=== PATIENT | male | born 1965 | race Caucasian/White ===

== ENCOUNTER 2016-12-31 11:57 | Inpatient (IN) ==
--- NOTE | 2016-12-31 12:10 | Emergency Department Note ---
Disposition Clinical Impression: Acute renal failure, Hypoglycemia, Obesity, History of diabetes mellitus, Calculus of kidney, History of hypertension, Anemia, Abnormal urinalysis, Hyperphosphatemia, Hyperkalemia, Hypermagnesemia, Dyspnea Disposition: Admitted As Inpatient Referrals: Shakira Diaz CNP [Primary Care Provider] - Forms: ED Satisfaction Letter General Adult HPI - General Chief complaint: ED Recheck/Abnormal Lab/Rx Stated complaint: Bilat kidney stone Time Seen by Provider: 12/31/16 12:07 Source: patient Limitations: no limitations - History of Present Illness HPI Narrative: 51-year-old male diabetic reports emergency department complaining of weakness and malaise and nausea. 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 The patient has a history of renal insufficiency. The patient is type II diabetic. He denies any chest pain. He states he had a recent stress test and echocardiogram which were negative. He has had some slight dyspnea. No cough leg swelling or pain or coughing up blood. The patient has no history of CAD CHF PE or DVT. The patient has a history of kidney stones. Recent CT scan demonstrating nonobstructive stones. He has had no flank or back pain. No bloody urine. There is been no abdominal pain. No confusion neck stiffness rash or fever. No convulsions no trouble walking talking hearing seeing or speaking and lateral arm weakness or numbness. No bowel or bladder dysfunction. The patient is concerned about renal dysfunction. He is also concerned about his blood sugar. He has been voiding normally. No discolored urine or bloody urine. Pain Scale: 0 - Related Data Home Medications Medication Instructions Recorded Confirmed BuPROPion SR (12 HR) [Wellbutrin 150 mg PO BID 01/08/16 01/08/16 SR] Insulin DETEMIR [Levemir Flextouch] 40 units SQ BID 01/08/16 01/08/16 Insulin LISPRO [Humalog] 10 units SQ DAILY PRN 01/08/16 01/08/16 Metformin HCl [Glucophage] 1,000 mg PO BID 01/08/16 01/08/16 Teriflunomide [Aubagio] 14 mg PO DAILY 01/08/16 01/08/16 Previous Rx's Medication Instructions Recorded Gabapentin [Neurontin] 300 mg PO TID #30 capsule 01/08/16 Allergies Allergy/AdvReac Type Severity Reaction Status Date / Time No Known Allergies Allergy Verified 01/08/16 12:32 All systems ED: reviewed and negative except as stated. Past Medical History - Past Medical History Medical history: Reports: diabetes, hypertension, kidney stones, renal disease - Social History Smoking Status: Never smoker Smokeless Tobacco Status: No Alcohol use: Reports: none Drug use: Reports: none Physical Exam - General Limitations: no limitations General appearance: alert, in no apparent distress - Head Head exam: atraumatic, normocephalic, normal inspection - Eye Eye exam: Present: normal appearance, PERRL, EOMI. Absent: scleral icterus, conjunctival injection, miosis, mydriasis, periorbital swelling - ENT ENT exam: normal exam, normal oropharynx, mucous membranes moist, TM's normal bilaterally, normal external ear exam - Neck Neck exam: Present: normal inspection, full ROM, trachea midline. Absent: tenderness - Chest Chest inspection: Present: symmetric chest wall rise. Absent: tenderness - Respiratory Respiratory exam: Present: normal lung sounds bilaterally. Absent: respiratory distress, wheezes, stridor, accessory muscle use, prolonged expiratory phase - Cardiovascular Cardiovascular exam: Present: regular rate, normal rhythm, normal heart sounds - Abdominal Exam Abdominal exam: Present: soft, Non-Tender, normal bowel sounds. Absent: tenderness, distention, guarding, rebound, rigidity, pulsatile mass - Extremities Exam Extremities exam: Present: normal inspection, full ROM, normal capillary refill. Absent: tenderness, pedal edema, joint swelling, calf tenderness - Expanded Lower Extremity Exam Lower leg exam: Absent: Homans' sign Neurovascular/Tendon exam: Present: normal capillary refill. Absent: motor deficit, sensory deficit, tendon deficit, extremity cold to touch, pallor - Back Exam Back exam: Present: normal inspection, full ROM. Absent: tenderness, CVA tenderness (R), CVA tenderness (L), vertebral tenderness - Neurological Exam Neurological exam: Present: alert, oriented X3, CN II-XII intact. Absent: motor sensory deficit - Psychiatric Psychiatric exam: Present: normal affect, normal mood - Skin Skin exam: Present: warm, dry, intact, normal color. Absent: rash, cyanosis, diaphoresis, erythema, pallor, mottled Course Vital Signs Temperature 97.5 F L 12/31/16 12:00 Pulse Rate 89 12/31/16 12:00 Respiratory Rate 18 12/31/16 12:00 Blood Pressure 140/90 12/31/16 12:00 O2 Sat by Pulse Oximetry 99 12/31/16 12:00 Temperature 97.5 F L 12/31/16 12:00 Pulse Rate 86 12/31/16 12:42 Respiratory Rate 18 12/31/16 12:42 Blood Pressure 143/88 12/31/16 12:42 O2 Sat by Pulse Oximetry 100 12/31/16 12:42 Oxygen Delivery Oxygen Delivery Room Air Medical Decision Making - MDM Narrative Medical decision making narrative: The patient appears to be in acute renal failure, he is significantly hypoglycemic, he has multiple electrolyte abnormalities and is concerned with dyspnea. IV fluid was given as well as dextrose in the ED. Based on the patient's significant laboratory abnormalities, I think it would be appropriate to admit the patient to the hospital. I discussed the case with the hospitalist on-call who has accepted the patient to their care. Glucose is pending recheck. D5 and one half normal saline at 100 mL an hour recommended by the hospitalist. - Lab Data Lab results reviewed: Yes I reviewed the patient's lab results. Result diagrams: 12/31/16 12:45 12/31/16 12:45 Lab Results 12/31/16 12/31/16 12/31/16 Range/Units 12:11 12:45 12:45 WBC 6.1 (4.3-11.1) K/mcL RBC 2.73 L (4.19-5.50) M/mcL Hgb 8.5 L (12.9-16.9) g/dL Hct 25.5 L (37.5-50.1) % MCV 93.4 (83.0-100.0) fL MCH 31.1 (28.0-33.3) pg MCHC 33.3 (31.6-35.5) g/dL RDW 12.3 (11.5-14.5) % Plt Count 197 (140-400) K/mcL MPV 10.1 (9.4-12.4) fL Immature Gran % 0.7 (0-4) % Seg Neutrophils % 63.1 % Lymphocytes % 25.7 % Monocytes % 9.0 % Eosinophils % 1.3 % Basophils % 0.2 % Neutrophils # 3.9 (1.6-8.9) K/mcL Lymphocytes # 1.6 (0.6-4.6) K/mcL Monocytes # 0.6 (0.0-1.3) K/mcL Eosinophils # 0.1 (0.0-0.6) K/mcL Basophils # 0.0 (0.0-0.2) K/mcL Sodium 138 (136-145) mEq/L Potassium 5.5 H (3.5-4.5) mEq/L Chloride 109 (98-109) mEq/L Carbon Dioxide 10 L* (19-29) mEq/L BUN 114 H (8-26) mg/dL Creatinine 13.53 H (0.72-1.25) mg/dL Est GFR ( Amer) 5 L (> 60) Est GFR (Non-Af Amer) 4 L (> 60) BUN/Creatinine Ratio 8 (6-26) Glucose 41 L (70-99) mg/dL Calculated Osmolality 319 H (280-300) Lactic Acid (0.5-2.2) mmol/L Calcium 9.4 (8.6-10.8) mg/dL Phosphorus 11.8 H (2.3-4.7) mg/dL Magnesium 2.7 H (1.6-2.6) mg/dL Total Bilirubin 0.4 (0.2-1.2) mg/dL Direct Bilirubin 0.2 (0.0-0.5) mg/dL Indirect Bilirubin 0.2 (0.0-1.2) mg/dL AST 11 (5-34) Units/L ALT 29 (0-55) Units/L Alkaline Phosphatase 100 (38-126) Units/L Troponin I (0-0.03) ng/mL C-Reactive Protein 6 H (Less than 5) mg/L Serum Total Protein 7.3 (6.0-8.3) g/dL Albumin 3.5 (3.5-5.0) g/dL Globulin 3.8 H (2.4-3.5) g/dL Albumin/Globulin Ratio 0.9 L (1.1-2.2) Beta-Hydroxybutyric Acd (0.02-0.27) mmol/L Urine Color Yellow (Yellow) Urine Clarity Cloudy A (Clear) Urine pH 5.5 (5.0-8.0) pH Units Ur Specific [place] 1.015 (1.010-1.025) Urine Protein 30 H (Neg-Trace) mg/dL Urine Glucose (UA) Normal (Normal) mg/dL Urine Ketones Negative (Negative) mg/dL Urine Blood Negative (Negative) Urine Nitrite Negative (Negative) Urine Bilirubin Negative (Negative) Urine Urobilinogen Normal (Normal) mg/dL Ur Leukocyte Esterase Small H (Negative) Urine Microscopic RBC 0-3 (0-3) per hpf Urine Microscopic WBC 5-15 H (0-3) per hpf Ur Squamous Epith Cells Moderate H (None-Few) per lpf Urine Bacteria None Seen (None-Few) per hpf Hyaline Casts None Seen (None-Few) per lpf Urine Yeast Few H (None Seen) per hpf Ur Culture Indicated? YES A (NO) 12/31/16 12/31/16 12/31/16 Range/Units 12:45 12:45 13:45 WBC (4.3-11.1) K/mcL RBC (4.19-5.50) M/mcL Hgb (12.9-16.9) g/dL Hct (37.5-50.1) % MCV (83.0-100.0) fL MCH (28.0-33.3) pg MCHC (31.6-35.5) g/dL RDW (11.5-14.5) % Plt Count (140-400) K/mcL MPV (9.4-12.4) fL Immature Gran % (0-4) % Seg Neutrophils % % Lymphocytes % % Monocytes % % Eosinophils % % Basophils % % Neutrophils # (1.6-8.9) K/mcL Lymphocytes # (0.6-4.6) K/mcL Monocytes # (0.0-1.3) K/mcL Eosinophils # (0.0-0.6) K/mcL Basophils # (0.0-0.2) K/mcL Sodium (136-145) mEq/L Potassium (3.5-4.5) mEq/L Chloride (98-109) mEq/L Carbon Dioxide (19-29) mEq/L BUN (8-26) mg/dL Creatinine (0.72-1.25) mg/dL Est GFR ( Amer) (> 60) Est GFR (Non-Af Amer) (> 60) BUN/Creatinine Ratio (6-26) Glucose (70-99) mg/dL Calculated Osmolality (280-300) Lactic Acid < 0.2 L (0.5-2.2) mmol/L Calcium (8.6-10.8) mg/dL Phosphorus (2.3-4.7) mg/dL Magnesium (1.6-2.6) mg/dL Total Bilirubin (0.2-1.2) mg/dL Direct Bilirubin (0.0-0.5) mg/dL Indirect Bilirubin (0.0-1.2) mg/dL AST (5-34) Units/L ALT (0-55) Units/L Alkaline Phosphatase (38-126) Units/L Troponin I 0.00 (0-0.03) ng/mL C-Reactive Protein (Less than 5) mg/L Serum Total Protein (6.0-8.3) g/dL Albumin (3.5-5.0) g/dL Globulin (2.4-3.5) g/dL Albumin/Globulin Ratio (1.1-2.2) Beta-Hydroxybutyric Acd 1.12 H (0.02-0.27) mmol/L Urine Color (Yellow) Urine Clarity (Clear) Urine pH (5.0-8.0) pH Units Ur Specific [place] (1.010-1.025) Urine Protein (Neg-Trace) mg/dL Urine Glucose (UA) (Normal) mg/dL Urine Ketones (Negative) mg/dL Urine Blood (Negative) Urine Nitrite (Negative) Urine Bilirubin (Negative) Urine Urobilinogen (Normal) mg/dL Ur Leukocyte Esterase (Negative) Urine Microscopic RBC (0-3) per hpf Urine Microscopic WBC (0-3) per hpf Ur Squamous Epith Cells (None-Few) per lpf Urine Bacteria (None-Few) per hpf Hyaline Casts (None-Few) per lpf Urine Yeast (None Seen) per hpf Ur Culture Indicated? (NO) - Radiology Data Radiology results reviewed: Yes I reviewed the patient's radiology results.
[2016-12-31 12:56] LABS: Basophils % 0.2 %; Eosinophils # 0.1 K/mcL (0.0-0.6); Eosinophils % 1.3 %; Hematocrit 25.5 % (37.5-50.1); Hemoglobin 8.5 g/dL (12.9-16.9); Immature Granulocytes % 0.7 % (0-4); Lymphocytes # 1.6 K/mcL (0.6-4.6); Lymphocytes % 25.7 %; Mean Corpuscular HGB Conc 33.3 g/dL (31.6-35.5); Mean Corpuscular Hemoglobin 31.1 pg (28.0-33.3); Mean Corpuscular Volume 93.4 fL (83.0-100.0); Mean Platelet Volume 10.1 fL (9.4-12.4); Monocytes # 0.6 K/mcL (0.0-1.3); Neutrophils # 3.9 K/mcL (1.6-8.9); Platelet Count 197 K/mcL (140-400); Red Blood Count 2.73 M/mcL (4.19-5.50); Red Cell Distribution Width 12.3 % (11.5-14.5); Segmented Neutrophils % 63.1 %
[2016-12-31 13:02] LABS: Bilirubin,Urine Negative (Negative); Blood,Urine Negative (Negative); Clarity,Urine Cloudy (Clear); Color,Urine Yellow (Yellow); Glucose,Urine (UA) Normal (Normal); Ketones,Urine Negative (Negative); Leukocyte Esterase,Urine Small (Negative); Nitrite,Urine Negative (Negative); PH,Urine 5.5 pH Units (5.0-8.0); Protein,Urine 30 mg/dL (Neg-Trace); Specific Gravity,Urine 1.015 (1.010-1.025); Urobilinogen,Urine Normal (Normal)
[2016-12-31 13:05] LABS: Bacteria,Urine None Seen per hpf (None-Few); Hyaline Casts,Urine None Seen per lpf (None-Few); RBC,Urine 0-3 per hpf (0-3); Squamous Epithelial Cell,Urine Moderate per lpf (None-Few)
[2016-12-31 13:12] LABS: Yeast,Urine Few per hpf (None Seen)
[2016-12-31 13:20] LABS: Albumin 3.5 g/dL (3.5-5.0); Albumin/Globulin Ratio 0.9 (1.1-2.2); Bilirubin,Direct 0.2 mg/dL (0.0-0.5); Bilirubin,Indirect 0.2 mg/dL (0.0-1.2); Bilirubin,Total 0.4 mg/dL (0.2-1.2); Calcium 9.4 mg/dL (8.6-10.8); Globulin 3.8 g/dL (2.4-3.5); Magnesium 2.7 mg/dL (1.6-2.6); Phosphorous 11.8 mg/dL (2.3-4.7); Potassium 5.5 mEq/L (3.5-4.5); Total Protein 7.3 g/dL (6.0-8.3)
[2016-12-31] MEDS ORDERED: *HR* Dextrose 50 % in Water (Syg) 50 ML SYRINGE IVP ONE (13:52)
[2016-12-31] MEDS ORDERED: 0.9 % Sodium Chloride 1,000 ML IVC ONE (13:52)
[2016-12-31] MEDS ORDERED: *HR* Dextrose 50 % in Water (Syg) 50 ML SYRINGE ONE (13:55)
[2016-12-31 14:20] LABS: VBG HCO3 9.9 mEq/L (21-27)
[2016-12-31 14:21] LABS: VBG PH 7.1 pH Units (7.32-7.42)
[2016-12-31] MEDS ORDERED: D5% in 0.45% NACL 1,000 ML IVC SCH (14:30)
[2016-12-31] MEDS ORDERED: Ondansetron 4 MG/2 ML VIAL IVP PRN (14:33)
[2016-12-31] MEDS ORDERED: Acetaminophen 325 MG TABLET PO PRN (14:33)
[2016-12-31] MEDS ORDERED: Naloxone 0.4 MG/ML INJ IVP PRN (14:33)
[2016-12-31] MEDS ORDERED: *HR* HYDROcodone/Acet 5/325 mg TABLET PO PRN (14:33)
[2016-12-31] MEDS ORDERED: Dextrose Gel 15 GM PO PRN ×2 (14:33)
[2016-12-31] MEDS ORDERED: *HR* Dextrose 50 % in Water (Syg) 50 ML SYRINGE IVP PRN (14:33)
[2016-12-31] MEDS ORDERED: D5% in Water 1,000 ML IVC PRN ×2 (14:33→17:24)
[2016-12-31 14:52] LABS: Prothrombin Time 10.9 Seconds (9.4-12.1)
[2016-12-31 14:55] LABS: Activated Partial Thrombo Time 33.5 Seconds (26.0-36.0)
--- NOTE | 2016-12-31 16:11 | Nephrology Consult Note ---
Date of Encounter: 12/31/16 Time of Encounter: 16:00 Assessment and Plan (1) KEZIA (acute kidney injury) Current Visit: Yes Status: Acute Elevated SCr in the setting of kidney stones rule out obstructive uropathy and worsening anemia Will check CPK, uric acid and C3 and C4 levels Needs repeat imaging, will order CT abd/plevis Will check urine for sodium, creatinine, eosinophils Hold all nephrotoxins if possible No acute indication for REGISTRATION REP at this point but barrie made aware of the severity of his condition and the possible need for REGISTRATION REP if no improvement Will repeat BMP tonight (2) Anemia Current Visit: Yes Status: Acute Etiology unclear, needs workup Will check iron studies Stool guaiac Viatmin B12 and folate levels Qualifiers: Anemia type: other cause Qualified Code(s): D64.89 - Other specified anemias (3) Hyperkalemia Current Visit: Yes Status: Acute Elevated potassium due to KEZIA, should improve with bicarbonate repletion and improving renal function Renal diet advised (4) Nephrolithiasis Current Visit: Yes Status: Acute Repeat CT abd/pelvis planned (5) Metabolic acidosis Current Visit: Yes Status: Acute Agree with changing fluids to D5W with 150MEq bicarb at 100cc/hr History of Present Illness - Reason for Consult Consult date: 12/31/16 Acute Kidney Injury, Chronic Kidney Disease Requesting physician: Mabel Lugo - History of Present Illness 51 y o male with PMH of DM, HLD, HTN and morbid obesity s/p gastric bypass presenting to the Ed today with generalized weakness and malaise along with nausea and vomiting. SCr noted worsening at 13.53, GFR 4 with BUN at 114 previously 7.86/GFR7 a week ago and 3.13, GFR 21 as of and previous baseline noted around 1.1-1.2 with mild microalbuminuria. He follows with my associate, Dr Rosales for his renal issues and recently established with urology, Dr Laura for kidney stones. Recent CT abd/pelvis on 12/22/2016 showed bilaterla kidney stones but no hydronephrosis although a 3-4mm calcification was noted in the left pelvis possibly in ureter. No recent NSAIDs use but does take losartan for BP control and metformin for DM. no fevers/chills. No rash. No myalgias or arthralgias. No flank pain. No sustained N/V/D. No urinary sxs. No signs of bleeding although hgb noted decreasing from 13 last month to 10 last week and now 8.5, he reports a history of "mild anemia". Past Med Surg Social Fam HX - Past Medical History Medical history: diabetes, hypertension, kidney stones, renal disease - Social History Smoking Status: Never smoker Smokeless Tobacco Status: No Alcohol use: none Drug use: none - Family History Father Hx Family Genitourinary Disorders: Yes (kidney stones) Medications and Allergies Insulin LISPRO [Humalog] 10 units SQ DAILY PRN 01/08/16 [History] Metformin HCl [Glucophage] 1,000 mg PO BID 01/08/16 [History] RX: BuPROPion SR (12 HR) [Wellbutrin SR] 150 mg PO BID 01/08/16 [History] Dulaglutide [Trulicity] 1.5 mg SQ CANELA 12/31/16 [History] Insulin Glargine,Hum.rec.anlog [Toujeo Solostar] 10 - 30 units SQ DAILY [History] Lidocaine [Lidocaine] 1 patch TP DAILY PRN 12/31/16 [History] Losartan Potassium [Cozaar] 100 mg PO DAILY 12/31/16 [History] Pregabalin [Lyrica] 200 mg PO DAILY 12/31/16 [History] RX: DULoxetine [Cymbalta] 30 mg PO DAILY 12/31/16 [History] Rosuvastatin Calcium [Rosuvastatin Calcium] 40 mg PO DAILY 12/31/16 [History] Allergies No Known Allergies Allergy (Verified 12/31/16 14:43) Review of Systems All Systems: reviewed and no additional remarkable complaints except as stated ( ten systems reviewed) Exam - Vital Signs Vital signs: Initial Vital Signs Temp Pulse Resp BP Pulse Ox 97.5 F L 89 18 140/90 99 12/31/16 12:00 12/31/16 12:00 12/31/16 12:00 12/31/16 12:00 12/31/16 12:00 Vital Signs - Last 8 Hours Pulse Resp BP Pulse Ox 12/31/16 15:46 18 147/81 12/31/16 15:03 85 18 144/89 98 Intake and Output 12/31/16 12/31/16 12/31/16 07:59 15:59 23:59 Other: Blood Glucose* 164 - General Appearance General appearance: well-developed, well-nourished (NAD) EENT: ATNC, mucous membranes moist Results - Lab Results 12/31/16 12:45 12/31/16 14:30 Most recent lab results Calcium 9.4 mg/dL (8.6-10.8) 12/31/16 12:45 Phosphorus 11.8 mg/dL (2.3-4.7) H 12/31/16 12:45 Magnesium 2.7 mg/dL (1.6-2.6) H 12/31/16 12:45 Consult Discharge Plan - Plan Referrals: Shakira Diaz CNP [Primary Care Provider] -
--- NOTE | 2016-12-31 16:12 | Internal Med History&Physical ---
Date of Encounter: 12/31/16 Time of Encounter: 14:45 Assessment and Plan (1) Acute worsening of stage 3 chronic kidney disease Current visit: Yes Status: Acute Creatinine of 1.4 in Jun. Creatinine has been trending up, in December 08 Cr was 3.3 -> December 23 it was 7.86 for which he saw Dr Rosales and had work up as outpatient (negative MURALI, ANCA, SPEP, complement C3, C4, PTH, Vit D). High urine oxalate. He started feeling weak a few weeks ago and last week he developed nausea, vomiting and upper respiratory symptoms including rhinorrhea and productive cough. His He reports on and off diarrhea for years after gastric bypass surgery. No new medications. No abdominal pain. No change in urine output. No urinary complaints. No bleeding. No chest pain. No shortness of breath. No sick contacts. No recent travel. no skin lesions. no joint problems. and today it is 13.53 with BUN 114 and K 5.5. Worsening kidney function could be secondary to dehydration from N/V and suspected URI. normal temp. CO3 is 10. start IV fluids D5/sodium bicarb 3 amps at 100 ml/hr. EKG reviewed by me and shows SR HR 71. CXR was negative for acute process. Consult nephrology. Check urine lytes. check renal us. repeat BMP this evening. (2) Hyperkalemia Current visit: Yes Status: Acute plan as above (3) Hypoglycemia Current visit: Yes Status: Acute secondary to worsening kidney function. hold home dose lantus. continue IV dextrose. (4) Hyperphosphatemia Current visit: Yes Status: Acute phosphorus at 11. close monitor. (5) Nephrolithiasis Current visit: Yes Status: Acute history nephrolithiasis s/p lithotripsy in . Patient had recent CT abdomen in December 22 and it showed bilateral renal calculi, no hydronephrosis. check renal us (6) History of hypertension Current visit: Yes Status: Acute well controlled. hold home dose losartan. (7) History of diabetes mellitus Current visit: Yes Status: Chronic holding home dose lantus due to hypoglycemia. iss. diabetic diet. (8) Anemia Current visit: Yes Status: Acute likely secondary to chronic kidney disease. check iron ferritin, b12, folate. no bleeding. close monitor. Qualifiers: Anemia type: other cause Other causes of anemia: chronic disease, other Qualified Code(s): D63.8 - Anemia in other chronic diseases classified elsewhere (9) Obesity Current visit: Yes Status: Suspected bmi 36 Qualifiers: Obesity type: unspecified obesity type Obesity severity: non-morbid Qualified Code(s): E66.9 - Obesity, unspecified Internal Medicine - H&P: HPI Chief complaint: generalized weakness for the past 2 weeks. Admitted From: Home Plans for Post Hospital Care: Home History of present illness: Mr. Bruno is a 51 year old male diabetes mellitus, htn, CKD 3, and nephrolithiasis s/p lithotripsy in who started feeling weak a few weeks ago and last week he developed nausea, vomiting and upper respiratory symptoms including rhinorrhea and productive cough. His He reports on and off diarrhea for years after gastric bypass surgery. No new medications. No abdominal pain. No change in urine output. No urinary complaints. No bleeding. No chest pain. No shortness of breath. No sick contacts. No recent travel. no skin lesions. no joint problems. Past Med Surg Social Fam HX - Past Medical History Medical history: diabetes, hypertension, kidney stones, renal disease - Social History Smoking Status: Never smoker Smokeless Tobacco Status: No Alcohol use: none Drug use: none - Family History Father Hx Family Genitourinary Disorders: Yes (kidney stones) Internal Medicine - H&P: Meds BuPROPion SR (12 HR) [Wellbutrin SR] 150 mg PO BID 01/08/16 [History] Insulin LISPRO [Humalog] 10 units SQ DAILY PRN 01/08/16 [History] Metformin HCl [Glucophage] 1,000 mg PO BID 01/08/16 [History] DULoxetine [Cymbalta] 30 mg PO DAILY 12/31/16 [History] Dulaglutide [Trulicity] 1.5 mg SQ CANELA 12/31/16 [History] Insulin Glargine,Hum.rec.anlog [Marcos Hernándezostnarciso] 10 - 30 units SQ DAILY [History] Lidocaine [Lidocaine] 1 patch TP DAILY PRN 12/31/16 [History] Losartan Potassium [Cozaar] 100 mg PO DAILY 12/31/16 [History] Pregabalin [Lyrica] 200 mg PO DAILY 12/31/16 [History] Rosuvastatin Calcium [Rosuvastatin Calcium] 40 mg PO DAILY 12/31/16 [History] Allergies No Known Allergies Allergy (Verified 12/31/16 14:43) All Systems PM: A 10-system review of systems was performed and is negative for pertinent findings except as documented above in the HPI. - Constitutional Vitals: Temp Pulse Resp BP Pulse Ox 97.5 F L 85 18 147/81 98 12/31/16 12:00 12/31/16 15:03 12/31/16 15:46 12/31/16 15:46 12/31/16 15:03 General appearance: Present: cooperative, A&O X 3, pleasant, no acute distress, answers questions appropriately - Neck Neck exam general surgery: Present: supple, trachea midline. Absent: lymphadenopathy - Respiratory Respiratory exam: Present: CTAB - Cardiovascular Cardiovascular exam: Present: RRR - GI/Abdominal GI/Abdominal exam: Present: normal bowel sounds, soft. Absent: distended, tenderness - Extremities Exam Extremities exam: Absent: joint swelling, pedal edema - Back Exam Back exam: Absent: CVA tenderness (L), CVA tenderness (R) - Neurological Exam Neurological exam: Present: alert, oriented X3, no focal deficits, strengths equal and symetr throughout. Absent: facial droop, speech deficit - Skin Skin exam: Absent: rash Internal Med - H&P Results - Labs CBC & Chem 7: 12/31/16 12:45 12/31/16 14:30
[2016-12-31] MEDS: Pantoprazole 40 MG VIAL IVP SCH (17:08)
[2016-12-31] MEDS: Sodium Bicarbonate 150 MEQ in D5% in Water 1,000 ML IVC SCH (17:27)
[2016-12-31] MEDS ORDERED: Insulin LISPRO 300 UNITS/3 ML VIAL SQ SCH (21:00)
[2016-12-31 21:38] LABS: Potassium 6.1 mEq/L (3.5-4.5)
[2017-01-01 03:28] LABS: Basophils % 0.3 %; Eosinophils # 0.2 K/mcL (0.0-0.6); Eosinophils % 2.7 %; Hematocrit 25.1 % (37.5-50.1); Hemoglobin 8.5 g/dL (12.9-16.9); Immature Granulocytes % 0.5 % (0-4); Lymphocytes # 1.7 K/mcL (0.6-4.6); Lymphocytes % 28.4 %; Mean Corpuscular HGB Conc 33.9 g/dL (31.6-35.5); Mean Corpuscular Hemoglobin 31.3 pg (28.0-33.3); Mean Corpuscular Volume 92.3 fL (83.0-100.0); Mean Platelet Volume 10.7 fL (9.4-12.4); Monocytes # 0.7 K/mcL (0.0-1.3); Monocytes % 11.9 %; Neutrophils # 3.3 K/mcL (1.6-8.9); Platelet Count 173 K/mcL (140-400); Red Blood Count 2.72 M/mcL (4.19-5.50); Red Cell Distribution Width 11.9 % (11.5-14.5); Segmented Neutrophils % 56.2 %
[2017-01-01 03:42] LABS: % Iron Saturation 58 % (20-55); Iron 160 mcg/dL (65-175); Transferrin 198 mg/dL (174-364)
[2017-01-01 03:45] LABS: Calcium 8.3 mg/dL (8.6-10.8); Phosphorous 11.6 mg/dL (2.3-4.7); Potassium 4.7 mEq/L (3.5-4.5)
[2017-01-01 04:04] LABS: Ferritin 280 ng/ml (22-275)
[2017-01-01 04:21] LABS: Folate 13.5 ng/mL (7.0-31.4); Vitamin B12 > 2000 pg/mL (213-816)
[2017-01-01] MEDS: Sodium Bicarbonate 150 MEQ in D5% in Water 1,000 ML IVC SCH ×3 (05:15→21:38)
[2017-01-01] MEDS ORDERED: Insulin LISPRO 300 UNITS/3 ML VIAL SQ SCH (07:30)
[2017-01-01] MEDS: Pantoprazole 40 MG VIAL IVP SCH (08:44)
--- NOTE | 2017-01-01 10:40 | Internal Med Progress Note ---
Date of Encounter: 01/01/17 Time of Encounter: 08:15 - Assessment and plan (1) Acute worsening of stage 3 chronic kidney disease Current Visit: Yes Status: Acute Assessment and plan: No improvement in renal function. Nephrology input appreciated. Continue sodium bicarbonate infusion with dextrose. Potassium levels are improving. High risk for complications due to renal failure (2) Anemia Current Visit: Yes Status: Acute Assessment and plan: Likely from worsening of chronic kidney disease. Hemoglobin levels are stable. Patient does have normal iron, folic acid and B12 levels. Qualifiers: Anemia type: other cause Other causes of anemia: chronic disease, kidney Qualified Code(s): N18.9 - Chronic kidney disease, unspecified; D63.1 - Anemia in chronic kidney disease (3) Hyperkalemia Current Visit: Yes Status: Acute Assessment and plan: Potassium levels are improving. 4.7 today. (4) Hyperphosphatemia Current Visit: Yes Status: Acute Assessment and plan: Due to worsening kidney disease. (5) Hypoglycemia Current Visit: Yes Status: Acute Assessment and plan: Blood sugars were low this morning. Patient is receiving dextrose infusion with bicarbonate. Continue to monitor blood sugars closely hold insulin products (6) Nephrolithiasis Current Visit: Yes Status: Chronic Assessment and plan: Nonobstructive stones per CT scan of the abdomen. (7) Obesity Current Visit: Yes Status: Chronic Assessment and plan: Recommend weight loss Qualifiers: Obesity type: due to excess calories Obesity severity: non-morbid Qualified Code(s): E66.09 - Other obesity due to excess calories (8) Diabetes mellitus, type 2 Current Visit: Yes Status: Chronic Assessment and plan: Patient having hypoglycemic episodes. Hold insulin products. 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 On intravenous bicarbonate infusion. - Subjective Interval history: Doing well overall. Has good urine output. No hematuria. No dysuria. Nausea is improving. No shortness of breath or chest pain. No palpitations. - Constitutional Vitals: Temp Pulse Resp BP Pulse Ox 97.6 F 91 15 128/76 100 01/01/17 07:53 01/01/17 07:53 01/01/17 07:53 01/01/17 07:53 01/01/17 07:53 General appearance: Present: cooperative, A&O X 3, pleasant, no acute distress, answers questions appropriately - Neck Neck exam general surgery: Present: supple, trachea midline. Absent: lymphadenopathy - Respiratory Respiratory exam: Present: CTAB. Absent: accessory muscle use, rales, rhonchi, wheezes - Cardiovascular Cardiovascular exam: Present: RRR, +S1, +S2. Absent: diastolic murmur, gallop, rubs, systolic murmur - GI/Abdominal GI/Abdominal exam: Present: normal bowel sounds, soft, no peritoneal signs. Absent: distended, tenderness - Extremities Exam Extremities exam: Present: warm. Absent: calf tenderness, cyanotic, pedal edema - Neurological Exam Neurological exam: Present: alert, oriented X3, no focal deficits. Absent: facial droop, speech deficit - Skin Skin exam: Present: dry, intact Internal Medicine: Result - Labs CBC & Chem 7: 01/01/17 02:48 01/01/17 02:48 Labs: Short CBC 01/01/17 Range/Units 02:48 WBC 5.8 (4.3-11.1) K/mcL Hgb 8.5 L (12.9-16.9) g/dL Hct 25.1 L (37.5-50.1) % Plt Count 173 (140-400) K/mcL Neutrophils # 3.3 (1.6-8.9) K/mcL BMP 12/31/16 01/01/17 21:13 02:48 Sodium 130 L D 135 L Potassium 6.1 H 4.7 H D Chloride 105 107 Carbon Dioxide 7 L* 10 L* BUN 121 H 122 H Creatinine 12.53 H 13.20 H Glucose 210 H 70 Calcium 8.0 L 8.3 L - ABG Interpretation ABG results: PT/INR, D-dimer PT 10.9 Seconds (9.4-12.1) 12/31/16 12:45 - Impressions Impressions Retroperitoneum Ultrasound 12/31/16 21:30 IMPRESSION: 1. No evidence of acute obstructive uropathy. 2. Diffuse increased right renal parenchymal echogenicity in keeping with chronic medical renal disease. 3. Nonobstructing right renal calculus. 4. Nonspecific layering debris in the urinary bladder. Correlation with urinalysis is recommended. 5. Postvoid urinary bladder residual volume of 30 cc. 6. Prostatomegaly. D/ / Alejandro Oconnor MD / Alejandro Oconnor MD Interpreting Provider: Alejandro Oconnor MD Consult Discharge Plan - Plan Referrals: Shakira Diaz BUDGET ACCOUNTANT [Primary Care Provider] - (web Request 01/01/17) - Attending Attestation This document has been at least partially created by [employer] recognition technology by Dr. Vaz. Errors in grammar, wording or other phrases may exist. If errors are found after the documentation is signed, they will be addressed individually in the addendum section of this document when appropriate.
--- NOTE | 2017-01-01 11:22 | Nephrology Progress Note ---
Date of Encounter: 01/01/17 Time of Encounter: 11:15 - Assessment and Plan (1) KEZIA (acute kidney injury) Current Visit: Yes Status: Acute SCr remains about the same early this morning desspite fluids, will increase rate and repeat later today CT abd/pelvis both negative for obstruction with bilateral stones noted and trace perinephric fluid along with enlarged prostate CPK and Uric acid levels not impressive Urine sodium WNL, FEna calculated at 5.4%, FEurea calculated at 64.9% cosistent with intrinsic renal disease Will check MURALI, complements, ANCA, anti GBM levels Discussed the need for renal biopsy by tuesday if no improvement. Pt worried about staying here that long and considering leaving AMA but promising to come back Continue to avoid nephrotoxins if possible No acute indication for [employer] today but might need soon if no improvement (2) Anemia Current Visit: Yes Status: Acute Hgb low but stable. Iron studies WNL. will monitor Qualifiers: Anemia type: other cause Other causes of anemia: chronic disease, kidney Qualified Code(s): N18.9 - Chronic kidney disease, unspecified; D63.1 - Anemia in chronic kidney disease (3) Hyperkalemia Current Visit: Yes Status: Acute Improving at 4.7, will monitor on renal diet (4) Nephrolithiasis Current Visit: Yes Status: Chronic CT and US show no obstruction (5) Metabolic acidosis Current Visit: Yes Status: Acute Still there despite bicarb gtt due to KEZIA, will increase rate Subjective Interval history: Pt seen and examined with no complaints except wants to go home very soon as he has no relatives or friends in the area and is worried about his dog at home and 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 Objective - Vital Signs Vital signs: Vital Signs Temp Pulse Resp BP Pulse Ox 01/01/17 07:53 97.6 F 91 15 128/76 100 01/01/17 05:00 97.6 F 96 16 110/69 98 01/01/17 00:20 97.6 F 92 16 157/91 94 Intake and Output 12/31/16 01/01/17 01/01/17 23:59 07:59 15:59 Intake Total 0 / 0 1150 / 1150 530 / 530 Output Total 720 / 720 Balance 0 / -250 1150 / 1150 -190 / -190 Intake: IV Fluids 1150 / 1150 Sodium Bicarbonate 150 1150 / 1150 MEQ In Dextrose 5% 1,000 ML @ 100 mls/hr IVC . [id number] COUNT INCLUDES THE [facility] Rx#: [id number] Oral 0 / 0 530 / 530 Output: Urine 720 / 720 Other: Meal Breakfast Percent of Meal Consumed 100% Weight 127.913 kg Blood Glucose* 258 65 Patient Weight 01/01/17 23:59 Weight 127.913 kg - General Appearance General appearance: Present: well-developed, well-nourished (NAD) EENT: Present: ATNC, mucous membranes moist Neck: Present: no JVD, supple Respiratory: Present: clear Cardiology: Present: no edema, regular rate, regular rhythm, normal S1, normal S2 Gastrointestinal: Present: no tenderness, no guarding, obese Integumentary: Present: warm and dry Neurologic: Present: no focal deficit Musculoskeletal: Present: no deformities Psychiatric: Present: mood/affect appropriate, cooperative - Lab 01/01/17 02:48 01/01/17 02:48 Most recent lab results Calcium 8.3 mg/dL (8.6-10.8) L 01/01/17 02:48 Phosphorus 11.6 mg/dL (2.3-4.7) H 01/01/17 02:48 Magnesium 2.7 mg/dL (1.6-2.6) H 12/31/16 12:45 Urine Creatinine 71 mg/dL 12/31/16 17:19 Urine Sodium 39.0 mEq/L 12/31/16 17:19 Consult Discharge Plan - Plan Referrals: Shakira Diaz CNP [Primary Care Provider] - (web Request 01/01/17)
[2017-01-01] MEDS: Calcium Acetate 667 MG CAPSULE PO SCH ×2 (12:07→16:48)
[2017-01-01 17:10] LABS: Protein/Creatinine Ratio,Urine 0.32 mg/mg (0-0.20)
[2017-01-01 17:12] LABS: Calcium 8.1 mg/dL (8.6-10.8); Potassium 4.8 mEq/L (3.5-4.5)
[2017-01-01] MEDS ORDERED: Pregabalin 25 MG CAPSULE PO SCH (21:00)
[2017-01-02 04:54] LABS: Basophils % 0.3 %; Eosinophils # 0.1 K/mcL (0.0-0.6); Eosinophils % 1.7 %; Hematocrit 22.2 % (37.5-50.1); Hemoglobin 7.7 g/dL (12.9-16.9); Immature Granulocytes % 0.5 % (0-4); Lymphocytes # 1.4 K/mcL (0.6-4.6); Lymphocytes % 24.3 %; Mean Corpuscular HGB Conc 34.7 g/dL (31.6-35.5); Mean Corpuscular Hemoglobin 30.6 pg (28.0-33.3); Mean Corpuscular Volume 88.1 fL (83.0-100.0); Mean Platelet Volume 10.4 fL (9.4-12.4); Monocytes # 0.6 K/mcL (0.0-1.3); Monocytes % 10.3 %; Neutrophils # 3.7 K/mcL (1.6-8.9); Platelet Count 168 K/mcL (140-400); Red Blood Count 2.52 M/mcL (4.19-5.50); Red Cell Distribution Width 11.8 % (11.5-14.5); Segmented Neutrophils % 62.9 %
[2017-01-02 05:04] LABS: Calcium 8.1 mg/dL (8.6-10.8); Magnesium 1.9 mg/dL (1.6-2.6); Phosphorous 11.9 mg/dL (2.3-4.7)
[2017-01-02 05:05] LABS: Potassium 3.7 mEq/L (3.5-4.5)
[2017-01-02] MEDS: Sodium Bicarbonate 150 MEQ in D5% in Water 1,000 ML IVC SCH (05:26)
[2017-01-02] MEDS: Calcium Acetate 667 MG CAPSULE PO SCH ×2 (08:11→11:52)
[2017-01-02] MEDS: Pantoprazole 40 MG VIAL IVP SCH (08:12)
--- NOTE | 2017-01-02 09:36 | Electrocardiograph Report ---
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
[2017-01-02 11:20] VITALS: BP 144/92
--- NOTE | 2017-01-02 11:59 | Internal Med Progress Note ---
Date of Encounter: 01/02/17 Time of Encounter: 08:00 - Assessment and plan (1) Acute worsening of stage 3 chronic kidney disease Current Visit: Yes Status: Acute Assessment and plan: Renal function remains poor with elevated BUN and creatinine. Patient having 1.2 L urine output yesterday and 550 mL so far today. On IV bicarbonate and dextrose solution. Nephrology following. Patient will most likely need renal biopsy to further diagnose the cause for his acute worsening of renal function. He may also need to be started on dialysis soon if his renal function does not improve. High risk for complications. Hyperkalemia has improved (2) Anemia Current Visit: Yes Status: Acute Assessment and plan: Acute on chronic anemia. Could be related to acute renal failure. Patient has normal iron, folic acid and vitamin B12 levels. We will monitor blood counts for now. Consider colonoscopy as outpatient Qualifiers: Anemia type: other cause Other causes of anemia: chronic disease, kidney Qualified Code(s): N18.9 - Chronic kidney disease, unspecified; D63.1 - Anemia in chronic kidney disease (3) Hyperkalemia Current Visit: Yes Status: Resolved (4) Hyperphosphatemia Current Visit: Yes Status: Acute Assessment and plan: On PhosLo (5) Hypoglycemia Current Visit: Yes Status: Resolved Assessment and plan: This has resolved. (6) Nephrolithiasis Current Visit: Yes Status: Chronic Assessment and plan: Nonobstructing (7) Obesity Current Visit: Yes Status: Chronic Qualifiers: Obesity type: due to excess calories Obesity severity: non-morbid Qualified Code(s): E66.09 - Other obesity due to excess calories (8) Diabetes mellitus, type 2 Current Visit: Yes Status: Chronic Assessment and plan: Better controlled. Continue to monitor blood sugars and start low-dose sliding scale insulin blood sugars are persistently greater than 150. 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 - Subjective Interval history: Remains comfortable. Having decent urine output. No nausea or vomiting today. No shortness of breath. No chest pain. - Constitutional Vitals: Temp Pulse Resp BP Pulse Ox 98.2 F 93 14 144/92 96 01/02/17 11:15 01/02/17 11:15 01/02/17 11:15 01/02/17 11:15 01/02/17 11:15 General appearance: Present: cooperative, A&O X 3, pleasant, no acute distress, answers questions appropriately - Respiratory Respiratory exam: Present: CTAB. Absent: accessory muscle use, rales, rhonchi, wheezes - Cardiovascular Cardiovascular exam: Present: RRR, +S1, +S2. Absent: diastolic murmur, gallop, rubs, systolic murmur - GI/Abdominal GI/Abdominal exam: Present: normal bowel sounds, soft, no peritoneal signs. Absent: distended, tenderness - Extremities Exam Extremities exam: Present: pedal edema, warm, radial pulses palpable and symetrical. Absent: calf tenderness, cyanotic - Neurological Exam Neurological exam: Present: alert, oriented X3, no focal deficits. Absent: facial droop, speech deficit - Skin Skin exam: Present: dry, intact Internal Medicine: Result - Labs CBC & Chem 7: 01/02/17 04:27 01/02/17 04:27 Labs: Short CBC 01/02/17 Range/Units 04:27 WBC 5.9 (4.3-11.1) K/mcL Hgb 7.7 L (12.9-16.9) g/dL Hct 22.2 L (37.5-50.1) % Plt Count 168 (140-400) K/mcL Neutrophils # 3.7 (1.6-8.9) K/mcL [facility] 01/01/17 01/02/17 16:54 04:27 Sodium 135 L 136 Potassium 4.8 H 3.7 D Chloride 104 100 Carbon Dioxide 11 L 16 L BUN 122 H 121 H Creatinine 13.20 H 13.22 H Glucose 121 H 54 L Calcium 8.1 L 8.1 L - ABG Interpretation ABG results: PT/INR, D-dimer PT 10.9 Seconds (9.4-12.1) 12/31/16 12:45 Consult Discharge Plan - Plan Instructions: Calcium Acetate (By mouth), Sodium Bicarbonate (By mouth), Renal Failure Diet (DC) Referrals: Jaylan Rosales, [Partnered Physician] - (web request.office will call for an appointment) Shakira Diaz CNP [Primary Care Provider] - (web Request 01/01/17) Prescriptions: Calcium Acetate [Phos-LO] 1,334 mg PO TIDWM #180 capsule Sodium Bicarbonate 650 mg PO BID #60 tablet - Attending Attestation This document has been at least partially created by [employer] recognition technology by Dr. Vaz. Errors in grammar, wording or other phrases may exist. If errors are found after the documentation is signed, they will be addressed individually in the addendum section of this document when appropriate.
[2017-01-03 08:57] LABS: Complement Component 3 118 mg/dL (88-201); Complement Component 4 36 mg/dL (10-40)
[2017-01-05 10:37] LABS: ANA IgG by ELISA NONE DETECTED (None Detected)
[2017-01-06 11:26] LABS: GBM IgG Multiplex Bead Assay 0 AU/mL (0-19); Glomerular Basement Memb IgG NEGATIVE (Negative); Myeloperoxidase Ab 4 AU/mL (0-19); Serine Protease-3 Antibody 0 AU/mL (0-19)
== END 2017-01-02 12:35 | disposition left against medical advice (07) | DRG 683 ==
LOC: 2ANU 11:57 → EMEROO 11:57 → 2ANU 16:07
PROVIDERS: ADMIT Internal Medicine; ATTEND Internal Medicine

== ENCOUNTER 2017-01-04 12:22 | Inpatient (IN) ==
--- NOTE | 2017-01-04 12:53 | Emergency Department Note ---
Disposition Clinical Impression: KEZIA (acute kidney injury) Disposition: Admitted As Inpatient Condition: Fair Forms: Work/School Release, ED Satisfaction Letter Weakness HPI - General Chief complaint: ED Abdominal Pain Stated complaint: My Kidneys Source: patient Limitations: no limitations Nursing Notes Reviewed: Yes Vital Signs Reviewed: Yes - History of Present Illness HPI Narrative: Patient is a 51-year-old male who left AMA on Tuesday returns today for hospital admission. He has acute kidney injury they recommended a renal biopsy state that he had a go home and take care of some personal affairs and would return. He returns today only symptoms just weakness which is worsened by exertion. No other complaints he states he is willing and able now to stay as long as it takes to have definitive care for his kidney problems Pt Subjective Complaint: generalized weakness/fatigue Onset (ago): week(s) (2) Duration: constant Location: generalized Pain Scale: 2 Improves with: rest Worsens with: exertion Context: history of similar Associated symptoms: Denies: chest pain, confusion, dark stools, loss of appetite - Related Data Home Medications Medication Instructions Recorded Confirmed BuPROPion SR (12 HR) [Wellbutrin 150 mg PO BID 01/08/16 12/31/16 SR] Insulin LISPRO [Humalog] 10 units SQ DAILY PRN 01/08/16 12/31/16 DULoxetine [Cymbalta] 30 mg PO DAILY 12/31/16 12/31/16 Dulaglutide [Trulicity] 1.5 mg SQ CANELA 12/31/16 12/31/16 Insulin Glargine,Hum.rec.anlog 10 - 30 units SQ DAILY 12/31/16 12/31/16 [Marcos Paulino] Lidocaine 1 patch TP DAILY PRN 12/31/16 12/31/16 Pregabalin [Lyrica] 200 mg PO DAILY 12/31/16 12/31/16 Rosuvastatin Calcium 40 mg PO DAILY 12/31/16 12/31/16 Previous Rx's Medication Instructions Recorded Calcium Acetate [Phos-LO] 1,334 mg PO TIDWM #180 capsule 01/02/17 Sodium Bicarbonate 650 mg PO BID #60 tablet 01/02/17 Allergies Allergy/AdvReac Type Severity Reaction Status Date / Time No Known Allergies Allergy Verified 12/31/16 14:43 All systems ED: reviewed and negative except as stated. Constitutional: Reports: weakness. Denies: fever, chills Gastrointestinal: Denies: nausea, vomiting, hematemesis, melena, hematochezia Past Medical History - Past Medical History Source: patient, old records reviewed, nursing notes reviewed Medical history: Reports: diabetes, hypertension, kidney stones, renal disease Psychiatric history: Reports: no psych history - Social History Smoking Status: Never smoker Smokeless Tobacco Status: No Alcohol use: Reports: none Drug use: Reports: none Physical Exam - General Limitations: no limitations General appearance: alert - Head Head exam: atraumatic, normocephalic, normal inspection - Eye Eye exam: Present: normal appearance, PERRL, EOMI - Expanded Eye Exam Pupils: Left: reactive - ENT ENT exam: normal exam, normal oropharynx, mucous membranes moist - Expanded ENT Exam External ear exam: Present: normal external inspection Mouth exam: Present: normal external inspection Teeth exam: Present: normal inspection Throat exam: Present: normal inspection - Neck Neck exam: Present: normal inspection, full ROM, trachea midline - Chest Chest inspection: Present: normal inspection, symmetric chest wall rise - Respiratory Respiratory exam: Present: normal lung sounds bilaterally - Cardiovascular Cardiovascular exam: Present: regular rate, normal rhythm, normal heart sounds - Abdominal Exam Abdominal exam: Present: soft, Non-Tender. Absent: tenderness, distention, guarding, rebound, rigidity - Extremities Exam Extremities exam: Present: normal inspection, full ROM. Absent: tenderness, pedal edema - Expanded Upper Extremity Exam Shoulder exam: Present: normal inspection, full ROM Arm exam: Present: normal inspection, full ROM Elbow exam: Present: normal inspection, full ROM Forearm/Wrist exam: Present: normal inspection, full ROM Hand exam: Present: normal inspection, full ROM Vascular exam: Normal: capillary refill, radial pulse - Expanded Lower Extremity Exam Hip/Pelvis exam: Present: normal inspection, full ROM Upper leg exam: Present: normal inspection, full ROM Knee exam: Present: normal inspection, full ROM Lower leg exam: Present: normal inspection, full ROM Ankle exam: Present: normal inspection, full ROM Foot/toe exam: Present: normal inspection, full ROM Neurovascular/Tendon exam: Absent: motor deficit, sensory deficit, tendon deficit - Back Exam Back exam: Present: normal inspection, full ROM. Absent: tenderness - Neurological Exam Neurological exam: Present: alert, oriented X3 - Expanded Neurological Exam Patient oriented to: Present: person, place, time Coma Scale Eye Opening: Spontaneous Coma Scale Motor Response: Obeys Commands Coma Scale Verbal Response: Oriented Coma Scale Total: 15 - Psychiatric Psychiatric exam: Present: normal affect, normal mood - Skin Skin exam: Present: warm, dry, intact, normal color Course Vital Signs Temperature 98.0 F 01/04/17 12:30 Pulse Rate 97 01/04/17 12:30 Respiratory Rate 18 01/04/17 12:30 Blood Pressure 153/90 01/04/17 12:30 O2 Sat by Pulse Oximetry 100 01/04/17 12:30 Temperature 98.0 F 01/04/17 12:30 Pulse Rate 85 01/04/17 13:33 Respiratory Rate 18 01/04/17 13:33 Blood Pressure 148/99 01/04/17 13:33 O2 Sat by Pulse Oximetry 100 01/04/17 13:33 Oxygen Delivery Oxygen Delivery Room Air Weakness - Differential Diagnosis Differential Diagnosis: Likely: acute myocardial infarction, anemia, hypoglycemia, rhabdomyolysis, dehydration, metabolic, thyroid/endocrine disorder - Medical Records Medical records reviewed: Yes I reviewed the patient's medical records. - Lab Data Lab results reviewed: Yes I reviewed the patient's lab results. Result diagrams: 01/04/17 13:00 01/04/17 13:00 Lab Results 01/04/17 01/04/17 01/04/17 Range/Units 13:00 13:00 13:00 WBC 6.0 (4.3-11.1) K/mcL RBC 2.35 L (4.19-5.50) M/mcL Hgb 7.3 L (12.9-16.9) g/dL Hct 20.9 L (37.5-50.1) % MCV 88.9 (83.0-100.0) fL MCH 31.1 (28.0-33.3) pg MCHC 34.9 (31.6-35.5) g/dL RDW 11.9 (11.5-14.5) % Plt Count 183 (140-400) K/mcL MPV 10.2 (9.4-12.4) fL Immature Gran % 0.7 (0-4) % Seg Neutrophils % 73.7 % Lymphocytes % 14.2 % Monocytes % 9.2 % Eosinophils % 2.0 % Basophils % 0.2 % Neutrophils # 4.4 (1.6-8.9) K/mcL Lymphocytes # 0.9 (0.6-4.6) K/mcL Monocytes # 0.6 (0.0-1.3) K/mcL Eosinophils # 0.1 (0.0-0.6) K/mcL Basophils # 0.0 (0.0-0.2) K/mcL PT 11.7 (9.4-12.1) Seconds INR 1.1 APTT 31.2 (26.0-36.0) Seconds Sodium 138 (136-145) mEq/L Potassium 4.5 (3.5-4.5) mEq/L Chloride 100 (98-109) mEq/L Carbon Dioxide 17 L (19-29) mEq/L BUN 117 H (8-26) mg/dL Creatinine 15.25 H (0.72-1.25) mg/dL Est GFR ( Amer) 4 L (> 60) Est GFR (Non-Af Amer) 3 L (> 60) BUN/Creatinine Ratio 8 (6-26) Glucose 246 H (70-99) mg/dL Calculated Osmolality 331 H (280-300) Calcium 8.7 (8.6-10.8) mg/dL Iron (65-175) mcg/dL % Saturation (20-55) % Transferrin (174-364) mg/dL Total Bilirubin 0.3 (0.2-1.2) mg/dL Direct Bilirubin 0.2 (0.0-0.5) mg/dL Indirect Bilirubin 0.1 (0.0-1.2) mg/dL AST 18 (5-34) Units/L ALT 36 (0-55) Units/L Alkaline Phosphatase 88 (38-126) Units/L Serum Total Protein 6.9 (6.0-8.3) g/dL Albumin 3.1 L (3.5-5.0) g/dL Globulin 3.8 H (2.4-3.5) g/dL Albumin/Globulin Ratio 0.8 L (1.1-2.2) Urine Color (Yellow) Urine Clarity (Clear) Urine pH (5.0-8.0) pH Units Ur Specific Kidder (1.010-1.025) Urine Protein (Neg-Trace) mg/dL Urine Glucose (UA) (Normal) mg/dL Urine Ketones (Negative) mg/dL Urine Blood (Negative) Urine Nitrite (Negative) Urine Bilirubin (Negative) Urine Urobilinogen (Normal) mg/dL Ur Leukocyte Esterase (Negative) Urine Yeast Blood Type Antibody Screen 01/04/17 01/04/17 01/04/17 Range/Units 13:00 13:00 13:43 WBC (4.3-11.1) K/mcL RBC (4.19-5.50) M/mcL Hgb (12.9-16.9) g/dL Hct (37.5-50.1) % MCV (83.0-100.0) fL MCH (28.0-33.3) pg MCHC (31.6-35.5) g/dL RDW (11.5-14.5) % Plt Count (140-400) K/mcL MPV (9.4-12.4) fL Immature Gran % (0-4) % Seg Neutrophils % % Lymphocytes % % Monocytes % % Eosinophils % % Basophils % % Neutrophils # (1.6-8.9) K/mcL Lymphocytes # (0.6-4.6) K/mcL Monocytes # (0.0-1.3) K/mcL Eosinophils # (0.0-0.6) K/mcL Basophils # (0.0-0.2) K/mcL PT (9.4-12.1) Seconds INR APTT (26.0-36.0) Seconds Sodium (136-145) mEq/L Potassium (3.5-4.5) mEq/L Chloride (98-109) mEq/L Carbon Dioxide (19-29) mEq/L BUN (8-26) mg/dL Creatinine (0.72-1.25) mg/dL Est GFR ( Amer) (> 60) Est GFR (Non-Af Amer) (> 60) BUN/Creatinine Ratio (6-26) Glucose (70-99) mg/dL Calculated Osmolality (280-300) Calcium (8.6-10.8) mg/dL Iron 95 (65-175) mcg/dL % Saturation 30 (20-55) % Transferrin 227 (174-364) mg/dL Total Bilirubin (0.2-1.2) mg/dL Direct Bilirubin (0.0-0.5) mg/dL Indirect Bilirubin (0.0-1.2) mg/dL AST (5-34) Units/L ALT (0-55) Units/L Alkaline Phosphatase (38-126) Units/L Serum Total Protein (6.0-8.3) g/dL Albumin (3.5-5.0) g/dL Globulin (2.4-3.5) g/dL Albumin/Globulin Ratio (1.1-2.2) Urine Color Yellow (Yellow) Urine Clarity Cloudy A (Clear) Urine pH 5.5 (5.0-8.0) pH Units Ur Specific Kidder 1.015 (1.010-1.025) Urine Protein 30 H (Neg-Trace) mg/dL Urine Glucose (UA) 100 H (Normal) mg/dL Urine Ketones Negative (Negative) mg/dL Urine Blood Small H (Negative) Urine Nitrite Negative (Negative) Urine Bilirubin Negative (Negative) Urine Urobilinogen Normal (Normal) mg/dL Ur Leukocyte Esterase Small H (Negative) Urine Yeast C PROGRAMMER Blood Type O POSITIVE Antibody Screen NEGATIVE
[2017-01-04 13:11] LABS: Basophils % 0.2 %; Eosinophils # 0.1 K/mcL (0.0-0.6); Hematocrit 20.9 % (37.5-50.1); Immature Granulocytes % 0.7 % (0-4); Lymphocytes # 0.9 K/mcL (0.6-4.6); Lymphocytes % 14.2 %; Mean Corpuscular HGB Conc 34.9 g/dL (31.6-35.5); Mean Corpuscular Hemoglobin 31.1 pg (28.0-33.3); Mean Corpuscular Volume 88.9 fL (83.0-100.0); Mean Platelet Volume 10.2 fL (9.4-12.4); Monocytes # 0.6 K/mcL (0.0-1.3); Monocytes % 9.2 %; Neutrophils # 4.4 K/mcL (1.6-8.9); Platelet Count 183 K/mcL (140-400); Red Blood Count 2.35 M/mcL (4.19-5.50); Red Cell Distribution Width 11.9 % (11.5-14.5); Segmented Neutrophils % 73.7 %
[2017-01-04 13:17] LABS: Hemoglobin 7.3 g/dL (12.9-16.9)
[2017-01-04 13:23] LABS: Activated Partial Thrombo Time 31.2 Seconds (26.0-36.0); INR 1.1; Prothrombin Time 11.7 Seconds (9.4-12.1)
[2017-01-04 13:25] LABS: % Iron Saturation 30 % (20-55); Iron 95 mcg/dL (65-175); Transferrin 227 mg/dL (174-364)
[2017-01-04 13:33] LABS: Albumin 3.1 g/dL (3.5-5.0); Albumin/Globulin Ratio 0.8 (1.1-2.2); Bilirubin,Direct 0.2 mg/dL (0.0-0.5); Bilirubin,Indirect 0.1 mg/dL (0.0-1.2); Bilirubin,Total 0.3 mg/dL (0.2-1.2); Calcium 8.7 mg/dL (8.6-10.8); Globulin 3.8 g/dL (2.4-3.5); Potassium 4.5 mEq/L (3.5-4.5); Total Protein 6.9 g/dL (6.0-8.3)
[2017-01-04 14:00] LABS: Bilirubin,Urine Negative (Negative); Blood,Urine Small (Negative); Clarity,Urine Cloudy (Clear); Color,Urine Yellow (Yellow); Glucose,Urine (UA) 100 mg/dL (Normal); Ketones,Urine Negative (Negative); Leukocyte Esterase,Urine Small (Negative); Nitrite,Urine Negative (Negative); PH,Urine 5.5 pH Units (5.0-8.0); Protein,Urine 30 mg/dL (Neg-Trace); Specific Gravity,Urine 1.015 (1.010-1.025); Urobilinogen,Urine Normal (Normal)
[2017-01-04 14:06] LABS: Hyaline Casts,Urine None Seen per lpf (None-Few); Squamous Epithelial Cell,Urine Few per lpf (None-Few)
[2017-01-04 14:30] LABS: Bacteria,Urine Few per hpf (None-Few); Calcium Oxalate Crystals,Urine Present
--- NOTE | 2017-01-04 15:01 | Nephrology Consult Note ---
Date of Encounter: 01/05/17 Time of Encounter: 14:58 Assessment and Plan (1) Acute renal failure Current Visit: Yes Status: Acute Patient returned after leaving AMA. He has nonoliguric acute renal failure on history of stage II kidney disease with baseline GFR 50-60s and baseline creatinine 1.0-1.2. Creatinine on admission 15.25, GFR 4. Potassium is within normal limits, he does not appear fluid overloaded and he is not showing uremic symptoms. As such, patient does not require emergent hemodialysis. However, with patients worsening renal function, patient is at high risk of requiring hemodialysis in the next couple days. Work up thus far including CT abd/pelvis with bilateral stones with no obstruction. CPK and uric acid levels not significant. Urine sodium was within normal limits. FEna calculated at 5.4% and FEurea at 64.9% suggestive of intrinsic renal disease. MURALI, ANCA and anti GBM levels are pending. Renal biopsy for further evaluation - consult placed to interventional radiology. Patient is not on anticoagulants and PT/INR/PTT were appropriate on admission. Monitor kidney function, urine output and watch for uremic symptoms. Renal protective strategy: renal dose medications and avoid nephrotoxins if possible. Qualifiers: Acute renal failure type: unspecified Qualified Code(s): N17.9 - Acute kidney failure, unspecified (2) Anemia Current Visit: No Status: Acute Patient presented with Hgb of 7.2 on admission. Just last week, iron studies done were within normal limits. No signs of active bleeding. Patient denies blood in emesis or stool. Will transfuse 1 unit pRBCs. Continue to monitor hemoglobin. Qualifiers: Anemia type: other cause Other causes of anemia: chronic disease, kidney Qualified Code(s): N18.9 - Chronic kidney disease, unspecified; D63.1 - Anemia in chronic kidney disease (3) Nephrolithiasis Current Visit: No Status: Chronic History of Present Illness - Reason for Consult Consult date: 01/04/17 Acute Kidney Injury - History of Present Illness Mr Bruno is a 51yo male with PMH of diabetes on inuslin, HTN, HTN and obesity who initially presented to the ED last week with generalized weakness, malaise, nausea and vomiting. At that time he was found to have serum creatinin of 13.53, GFR of 5 and BUN of 114, dramatically increased from a creatinine of 3.13, GFR of 21 one month ago. His previous know baseline was 1.1 -1.2 with mild microalbuminuria. Work up during that visit revealed BL kidney stones but no obstruction, CPK and uric acid levels were with in normal limits, labs suggest of intrinsic renal disease. It was recommended that patient receive a renal biopsy. However, patient left AMA before this was completed. With urging from the nephrology office, patient returned to the ED today. Today he reports feeling like his face is swollen. He reports shortness of breath when walking up the stairs and overall still feeling weak. He reports decrease appetite with nausea and vomiting. He denies any confusion or tremors and states that he is urinating okay. He denies any signs of bleeding including bloody emesis or bowel movements. Creatinine is 15, GFR 4. Potassium appropriate at 4.5. On exam, patient is awake and alert, in no acute distress. Lungs with crackles/course breath sounds, worse on the right than the left. Abdomen soft, nondistended. No pedal edema noted. Past Med Surg Social Fam HX - Past Medical History Medical history: diabetes, hypertension, kidney stones, renal disease Psychiatric history: no psych history - Social History Smoking Status: Never smoker Smokeless Tobacco Status: No Alcohol use: none Drug use: none - Family History Father Adopted: No Living Status: Hx Family Cardiac Disorders: Yes Hx Family Respiratory Disorders: Yes Hx Family Cancer: No Hx Family GI Disorders: No Hx Family Endocrine Disorder: No Hx Family Neuromuscular Disorders: No Hx Family Neurologic Disorders: No Hx Family HEENT Disorders: No Hx Family Autoimmune Disorders: No Medications and Allergies BuPROPion SR (12 HR) [Wellbutrin SR] 150 mg PO BID 01/08/16 [History] Insulin LISPRO [Humalog] 0 units SQ TID MDD PER SLIDING SCALE 01/08/16 [History] DULoxetine [Cymbalta] 30 mg PO DAILY 12/31/16 [History] Insulin Glargine,Hum.rec.anlog [Toujeo Solostar] 50 units SQ BID 12/31/16 [ History] Lidocaine 1 patch TP DAILY PRN 12/31/16 [History] Pregabalin [Lyrica] 100 mg PO BID 12/31/16 [History] Rosuvastatin Calcium 40 mg PO DAILY 12/31/16 [History] Calcium Acetate [Phos-LO] 1,334 mg PO TIDWM #180 capsule 01/02/17 [Rx] Sodium Bicarbonate 650 mg PO BID #60 tablet 01/02/17 [Rx] Multivitamin-Min/Iron/FA/Vit K [Multi-Day Plus Minerals Tablet] 1 tab PO DAILY 01/04/17 [History] Allergies No Known Allergies Allergy (Verified 12/31/16 14:43) Review of Systems Constitutional: fatigue, lethargy Cardiovascular: no chest pain, no edema, no irregular heart rhythm Respiratory: dyspnea on exertion, no cough Gastrointestinal: nausea, vomiting, no hematemesis, no hematochezia Genitourinary Male: no change in urinary stream, no difficulty urinating Neurological: no confusion, no syncope, no tremor(s) Exam - Vital Signs Vital signs: Initial Vital Signs Temp Pulse Resp BP Pulse Ox 98.0 F 97 18 153/90 100 01/04/17 12:30 01/04/17 12:30 01/04/17 12:30 01/04/17 12:30 01/04/17 12:30 Vital Signs - Last 8 Hours Temp Pulse Resp BP Pulse Ox 01/04/17 13:33 85 18 148/99 100 01/04/17 12:30 98.0 F 97 18 153/90 100 Intake and Output 01/03/17 01/04/17 01/04/17 23:59 07:59 15:59 Other: Weight 128.185 kg Patient Weight 01/04/17 23:59 Weight 128.185 kg - General Appearance General appearance: well-developed, well-nourished, appears started age, obese EENT: PERRL, mucous membranes moist Neck: no JVD Respiratory: rales, course breath sounds Cardiology: no murmurs, no rub, no gallops, regular rate, regular rhythm Gastrointestinal: no tenderness, no guarding Integumentary: warm and dry Neurologic: no focal deficit, alert and oriented x3 Psychiatric: mood/affect appropriate, cooperative Results - Lab Results 01/05/17 05:29 01/05/17 05:29 Most recent lab results Calcium 8.7 mg/dL (8.6-10.8) 01/04/17 13:00 Consult Discharge Plan - Plan Referrals: Shakira Diaz CNP [Primary Care Provider] -
[2017-01-04] MEDS ORDERED: 0.9 % Sodium Chloride 500 ML ONE (17:56)
--- NOTE | 2017-01-04 18:12 | Internal Med History&Physical ---
Date of Encounter: 01/04/17 Time of Encounter: 16:00 Assessment and Plan (1) Type 2 diabetes mellitus treated with insulin Current visit: Yes Status: Acute We will treat the patient with insulin Levemir and sliding scale. (2) DVT prophylaxis Current visit: Yes Status: Acute Encourage early ambulation. (3) Anemia in chronic kidney disease Current visit: Yes Status: Acute Outpatient anemia studies reviewed. Per medical record iron studies within normal limits. Folate normal. B12 level is high. Ferritin high. Agree with 1 unit of blood transfusion. Patient does have symptomatic anemia secondary to kidney disease. (4) Essential hypertension Current visit: No Status: Chronic Continue oral antihypertensive medication regimen. (5) Acute on chronic renal failure Current visit: Yes Status: Acute Consult nephrology. Nothing by mouth after midnight. Plan for kidney biopsy per nephrology service. Internal Medicine - H&P: HPI Chief complaint: Kidney failure Admitted From: Emergency Dept Plans for Post Hospital Care: Home History of present illness: Mr. Bruno is a 51 year old male with past medical history significant for morbid obesity and type 2 diabetes on insulin, chronic kidney disease, who presented to the hospital for worsening laboratory values indicating renal failure. He was recently admitted for same and signed out AMA. Today he came to the hospital for follow-up on his kidney function. He reports mild swelling in his face. Denies decreased appetite, reports 1 episode of nausea vomiting. Denies any changes in urinary flow. denies altered mental status, confusion, denies chest pain shortness of breath cough or fever chills. Denies bleeding and bruit bruising. Denies leg swelling. Workup done in the emergency department was pertinent for elevated creatinine of 15. Potassium was within normal limits. Nephrology was consulted and the patient was referred for admission to our service. A 10 point review of systems was negative. Family history was positive for coronary artery disease in both parents. Past Med Surg Social Fam HX - Past Medical History Medical history: diabetes, hypertension, kidney stones, renal disease Psychiatric history: no psych history - Social History Smoking Status: Never smoker Smokeless Tobacco Status: No Alcohol use: none Drug use: none - Family History Father Adopted: No Living Status: Hx Family Cardiac Disorders: Yes Hx Family Respiratory Disorders: Yes Hx Family Cancer: No Hx Family GI Disorders: No Hx Family Endocrine Disorder: No Hx Family Neuromuscular Disorders: No Hx Family Neurologic Disorders: No Hx Family HEENT Disorders: No Hx Family Autoimmune Disorders: No Internal Medicine - H&P: Meds BuPROPion SR (12 HR) [Wellbutrin SR] 150 mg PO BID 01/08/16 [History] Insulin LISPRO [Humalog] 0 units SQ TID MDD PER SLIDING SCALE 01/08/16 [History] DULoxetine [Cymbalta] 30 mg PO DAILY 12/31/16 [History] Insulin Glargine,Hum.rec.anlog [Toujeo Solostar] 50 units SQ BID 12/31/16 [ History] Lidocaine 1 patch TP DAILY PRN 12/31/16 [History] Pregabalin [Lyrica] 100 mg PO BID 12/31/16 [History] Rosuvastatin Calcium 40 mg PO DAILY 12/31/16 [History] Calcium Acetate [Phos-LO] 1,334 mg PO TIDWM #180 capsule 01/02/17 [Rx] Sodium Bicarbonate 650 mg PO BID #60 tablet 01/02/17 [Rx] Multivitamin-Min/Iron/FA/Vit K [Multi-Day Plus Minerals Tablet] 1 tab PO DAILY 01/04/17 [History] Allergies No Known Allergies Allergy (Verified 12/31/16 14:43) All Systems PM: A 10-system review of systems was performed and is negative for pertinent findings except as documented above in the HPI. - Constitutional Vitals: Temp Pulse Resp BP Pulse Ox 97.7 F 80 18 165/87 98 01/04/17 18:07 01/04/17 18:07 01/04/17 18:07 01/04/17 18:07 01/04/17 18:07 General appearance: Present: A&O X 3 - Eye Eye exam: Present: PERRL, conjuntiva pink, sclera anicteric Pupils: Present: PERRL - Respiratory Respiratory exam: Present: CTAB. Absent: accessory muscle use, rales, rhonchi, wheezes - Cardiovascular Cardiovascular exam: Present: RRR, +S1, +S2. Absent: diastolic murmur, gallop, rubs, systolic murmur - GI/Abdominal GI/Abdominal exam: Present: normal bowel sounds, soft, no peritoneal signs. Absent: distended, tenderness - Extremities Exam Extremities exam: Present: warm, radial pulses palpable and symetrical. Absent : calf tenderness, cyanotic, pedal edema - Neurological Exam Neurological exam: Present: CN II-XII intact, oriented X3, no focal deficits. Absent: pronater drift, facial droop, speech deficit - Skin Skin exam: Present: dry, intact Internal Med - H&P Results - Labs CBC & Chem 7: 01/04/17 13:00 01/04/17 13:00
[2017-01-04] MEDS ORDERED: *HR* Dextrose 50 % in Water (Syg) 50 ML SYRINGE IVP PRN (18:28)
[2017-01-04] MEDS ORDERED: Dextrose Gel 15 GM PO PRN ×2 (18:28)
[2017-01-04] MEDS ORDERED: D5% in Water 1,000 ML IVC PRN (18:28)
[2017-01-04] MEDS ORDERED: Naloxone 0.4 MG/ML INJ IVP PRN (18:29)
[2017-01-04] MEDS ORDERED: Acetaminophen 325 MG TABLET PO PRN (18:29)
[2017-01-04] MEDS ORDERED: *HR* Morphine 2 MG/ML SYRINGE IVP PRN (18:36)
[2017-01-04] MEDS: Calcium Acetate 667 MG CAPSULE PO SCH (20:11)
[2017-01-04] MEDS: BuPROPion SR (12 HR) 150 MG TABLET PO SCH (20:11)
[2017-01-04] MEDS: Insulin LISPRO 300 UNITS/3 ML VIAL SQ SCH ×2 (20:11→20:12)
[2017-01-04] MEDS: Ondansetron 4 MG/2 ML VIAL IVP PRN (20:30)
[2017-01-04] MEDS ORDERED: Insulin LISPRO 300 UNITS/3 ML VIAL SQ SCH (21:00)
[2017-01-04] MEDS ORDERED: Pregabalin 50 MG CAPSULE PO SCH (21:00)
[2017-01-04] MEDS: Insulin DETEMIR 100 UNIT/ML X5UNITS SQ SCH (21:57)
[2017-01-05 05:53] LABS: Basophils % 0.1 %; Eosinophils # 0.1 K/mcL (0.0-0.6); Eosinophils % 0.8 %; Hematocrit 23.9 % (37.5-50.1); Hemoglobin 8.1 g/dL (12.9-16.9); Immature Granulocytes % 0.5 % (0-4); Lymphocytes % 13.6 %; Mean Corpuscular HGB Conc 33.9 g/dL (31.6-35.5); Mean Corpuscular Hemoglobin 30.2 pg (28.0-33.3); Mean Corpuscular Volume 89.2 fL (83.0-100.0); Mean Platelet Volume 10.6 fL (9.4-12.4); Monocytes # 0.6 K/mcL (0.0-1.3); Monocytes % 7.8 %; Neutrophils # 5.6 K/mcL (1.6-8.9); Platelet Count 172 K/mcL (140-400); Red Blood Count 2.68 M/mcL (4.19-5.50); Red Cell Distribution Width 12.5 % (11.5-14.5); Segmented Neutrophils % 77.2 %
[2017-01-05 06:15] LABS: Calcium 8.7 mg/dL (8.6-10.8); Potassium 4.3 mEq/L (3.5-4.5)
[2017-01-05] MEDS: Insulin LISPRO 300 UNITS/3 ML VIAL SQ SCH ×7 (08:13→21:14)
[2017-01-05] MEDS: Calcium Acetate 667 MG CAPSULE PO SCH ×3 (08:14→16:59)
[2017-01-05] MEDS: Insulin DETEMIR 100 UNIT/ML X5UNITS SQ SCH ×2 (08:14→21:13)
[2017-01-05 09:59] LABS: Magnesium 2.2 mg/dL (1.6-2.6); Phosphorous 11.6 mg/dL (2.3-4.7)
[2017-01-05] MEDS ORDERED: *HR* OxyCODONE/APAP 5/325 TABLET PO PRN (11:07)
[2017-01-05] MEDS ORDERED: *HR* Morphine 2 MG/ML SYRINGE IVP PRN (11:10)
--- NOTE | 2017-01-05 12:56 | Nephrology Progress Note ---
Date of Encounter: 01/05/17 Time of Encounter: 12:47 - Assessment and Plan (1) Acute renal failure Current Visit: Yes Status: Acute Patient returned after leaving AMA. He has nonoliguric acute renal failure on history of stage II kidney disease with baseline GFR 50-60s and baseline creatinine 1.0-1.2. Creatinine continues to worsen 15.25 > 15.84. GFR 3. Potassium is within normal limits, he does not appear fluid overloaded and he is not showing uremic symptoms. As such, patient does not require emergent hemodialysis today. However, with patient's worsening ruenal function, he is at high risk of requiring hemodialysis in the next 24-72 hours. Will hold on placing any type of dialysis catheter for now. Work up thus far including CT abd/pelvis with bilateral stones with no obstruction. CPK and uric acid levels not significant. Urine sodium was within normal limits. FEna calculated at 5.4% and FEurea at 64.9% suggestive of intrinsic renal disease. MURALI, ANCA and anti GBM levels are pending. Renal biopsy planned for today for further evaluation. Monitor kidney function, urine output and watch for uremic symptoms. Renal protective strategy: renal dose medications and avoid nephrotoxins if possible. Qualifiers: Acute renal failure type: unspecified Qualified Code(s): N17.9 - Acute kidney failure, unspecified (2) Anemia Current Visit: No Status: Acute Patient presented with Hgb of 7.2 on admission, 8.1 today s/p 1 unit pRBCs Just last week, iron studies done were within normal limits. No signs of active bleeding. Patient denies blood in emesis or stool. Continue to monitor hemoglobin. Qualifiers: Anemia type: other cause Other causes of anemia: chronic disease, kidney Qualified Code(s): N18.9 - Chronic kidney disease, unspecified; D63.1 - Anemia in chronic kidney disease (3) Nephrolithiasis Current Visit: No Status: Chronic Subjective Principal diagnosis: Acute renal failure Interval history: Mr Bruno is a 51yo male returned to the ED with acute renal failure for a renal biopsy. No acute events overnight. Afebrile, vitals signs within normal limits. Creatinine 15.25 > 15.84. GFR 3. Potassium appropriate at 4.3. Patient seen and examined this morning. He is awake and alert. He states that he feels a little tired and he has a headache because he hasn't been able to to eat. Overall, he states that he feels okay. Lungs clear to auscultation. Abdomen soft, non-tender. No pedal edema noted. Objective - Vital Signs Vital signs: Vital Signs Temp Pulse Resp BP Pulse Ox 01/05/17 10:45 97.2 F L 88 18 155/89 96 01/05/17 07:04 97.4 F L 78 18 144/87 96 01/05/17 04:46 97.5 F L 82 16 123/82 99 01/05/17 00:38 72 134/77 01/04/17 23:28 97.9 F 90 16 129/82 99 01/04/17 20:41 97.9 F 89 17 154/98 99 01/04/17 19:26 98.4 F 89 16 147/90 99 Intake and Output 01/04/17 01/05/17 01/05/17 23:59 07:59 15:59 Intake Total 350 / 700 0 / 0 Output Total 0 / 0 975 / 975 0 / 0 Balance 350 / 700 -975 / -975 0 / 0 Intake: Oral 0 / 0 0 / 0 Blood Product 350 / 700 Rbcs Leuko Poor As-1 350 / 700 Unit [id number] Output: Urine 0 / 0 975 / 975 0 / 0 Other: Meal npo Percent of Meal Consumed 0% Weight 127.516 kg 127.516 kg Blood Glucose* 251 79 96 Patient Weight 01/05/17 23:59 Weight 127.516 kg - General Appearance General appearance: Present: well-developed, well-nourished, appears started age EENT: Present: PERRL, mucous membranes moist Neck: Present: no JVD Respiratory: Present: clear. Absent: wheezing, rales, rhonchi Cardiology: Present: no murmurs, no rub, no gallops, no edema, regular rate, regular rhythm Gastrointestinal: Present: no tenderness, no guarding. Absent: distended Integumentary: Present: warm and dry Neurologic: Present: no focal deficit, alert and oriented x3 Psychiatric: Present: mood/affect appropriate, cooperative - Lab 01/05/17 05:29 01/05/17 05:29 Most recent lab results Calcium 8.7 mg/dL (8.6-10.8) 01/05/17 05:29 Phosphorus 11.6 mg/dL (2.3-4.7) H 01/05/17 08:56 Magnesium 2.2 mg/dL (1.6-2.6) 01/05/17 08:56 Consult Discharge Plan - Plan Referrals: Shakira Diaz, MANIFEST CLERK [Primary Care Provider] -
--- NOTE | 2017-01-05 13:31 | Internal Med Progress Note ---
Date of Encounter: 01/05/17 Time of Encounter: 11:30 - Assessment and plan (1) Acute renal failure Current Visit: Yes Status: Acute Assessment and plan: Noted to have acute worsening of serum creatinine. Baseline serum creatinine noted to be around 1.5 in October 2016 and currently noted to be 15.8. Nephrology on board. Plan for renal biopsy today. Qualifiers: Acute renal failure type: unspecified Qualified Code(s): N17.9 - Acute kidney failure, unspecified (2) Diabetes mellitus Current Visit: Yes Status: Chronic Assessment and plan: Accu-Chek blood glucose monitoring with basal bolus insulin regimen. Patient is noted to have hypoglycemia with blood sugar in 80s this morning and he is currently not taking oral diet, in anticipation of renal biopsy. We will stop nutritional insulin and decrease sliding scale at this time. Diabetic diet when tolerated. 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 Continue phosphate binders. Renal diet. (5) Essential hypertension Current Visit: Yes Status: Chronic - Subjective Interval history: Reports feeling well. No shortness of breath, chest pain, abdominal pain. Does have facial puffiness and nausea, no vomiting. No urinary complaints. Awaiting renal biopsy today. - Constitutional Vitals: Temp Pulse Resp BP Pulse Ox 97.2 F L 88 18 155/89 96 01/05/17 10:45 01/05/17 10:45 01/05/17 10:45 01/05/17 10:45 01/05/17 10:45 General appearance: Present: A&O X 3, obese, answers questions appropriately - Respiratory Respiratory exam: Present: CTAB. Absent: accessory muscle use, rales, rhonchi, wheezes - Cardiovascular Cardiovascular exam: Present: RRR, +S1, +S2. Absent: diastolic murmur, gallop, rubs, systolic murmur - GI/Abdominal GI/Abdominal exam: Present: normal bowel sounds, soft, no peritoneal signs. Absent: distended, tenderness - Extremities Exam Extremities exam: Present: full ROM, pedal edema (Trace), warm, radial pulses palpable and symetrical. Absent: calf tenderness, cyanotic - Neurological Exam Neurological exam: Present: CN II-XII intact, oriented X3, no focal deficits. Absent: pronater drift, facial droop, speech deficit - Skin Skin exam: Present: dry, intact Internal Medicine: Result - Labs CBC & Chem 7: 01/05/17 05:29 01/05/17 05:29 Labs: Short CBC 01/05/17 Range/Units 05:29 WBC 7.3 (4.3-11.1) K/mcL Hgb 8.1 L (12.9-16.9) g/dL Hct 23.9 L (37.5-50.1) % Plt Count 172 (140-400) K/mcL Neutrophils # 5.6 (1.6-8.9) K/mcL BMP 01/05/17 05:29 Sodium 140 Potassium 4.3 Chloride 103 Carbon Dioxide 17 L BUN 122 H Creatinine 15.84 H Glucose 49 L Calcium 8.7 - ABG Interpretation ABG results: PT/INR, D-dimer PT 11.7 Seconds (9.4-12.1) 01/04/17 13:00 Consult Discharge Plan - Plan Referrals: Shakira Diaz CNP [Primary Care Provider] -
--- NOTE | 2017-01-05 15:03 | IR Procedure Note ---
Date of procedure: 01/05/17 Consent Obtained: Written consent Timeout: Correct patient and procedure verified, Correct site verified, Time out performed, Skin prep completed Indications: renal failure Procedure Performed: renal biopsy Site/Technique: left kidney Results/Findings: 4 cores, adequate Estimated blood loss (cc): 5 Complications: None; Tolerated procedure well Post Procedure Treatment Plan: dc to floor
[2017-01-05] MEDS: BuPROPion SR (12 HR) 150 MG TABLET PO SCH ×2 (15:26→21:12)
[2017-01-05] MEDS: *HR* Heparin 5,000 UNIT/ML VIAL SQ SCH (17:00)
[2017-01-05 21:02] LABS: Hepatitis B Surface Antigen Nonreactive (Nonreactive)
[2017-01-05 21:04] LABS: Hepatitis B Surface Antibody 231.89 mIU/mL
[2017-01-05] MEDS: Pregabalin 50 MG CAPSULE PO SCH (21:12)
[2017-01-06 04:16] LABS: Basophils % 0.1 %; Eosinophils # 0.1 K/mcL (0.0-0.6); Hematocrit 21.8 % (37.5-50.1); Hemoglobin 7.5 g/dL (12.9-16.9); Immature Granulocytes % 0.6 % (0-4); Lymphocytes # 1.5 K/mcL (0.6-4.6); Lymphocytes % 21.7 %; Mean Corpuscular HGB Conc 34.4 g/dL (31.6-35.5); Mean Corpuscular Hemoglobin 31.1 pg (28.0-33.3); Mean Corpuscular Volume 90.5 fL (83.0-100.0); Mean Platelet Volume 10.7 fL (9.4-12.4); Monocytes # 0.7 K/mcL (0.0-1.3); Monocytes % 9.3 %; Neutrophils # 4.6 K/mcL (1.6-8.9); Platelet Count 161 K/mcL (140-400); Red Blood Count 2.41 M/mcL (4.19-5.50); Red Cell Distribution Width 12.5 % (11.5-14.5); Segmented Neutrophils % 66.3 %
[2017-01-06 04:50] LABS: Albumin 2.7 g/dL (3.5-5.0); Calcium 8.6 mg/dL (8.6-10.8); Phosphorous 11.5 mg/dL (2.3-4.7); Potassium 4.5 mEq/L (3.5-4.5)
[2017-01-06] MEDS: *HR* Heparin 5,000 UNIT/ML VIAL SQ SCH ×2 (06:14→18:00)
[2017-01-06] MEDS: BuPROPion SR (12 HR) 150 MG TABLET PO SCH ×2 (07:44→20:38)
[2017-01-06] MEDS: Calcium Acetate 667 MG CAPSULE PO SCH ×3 (07:45→16:48)
[2017-01-06] MEDS: Pregabalin 50 MG CAPSULE PO SCH ×2 (07:46→20:39)
[2017-01-06] MEDS: Insulin LISPRO 300 UNITS/3 ML VIAL SQ SCH ×4 (07:47→20:36)
[2017-01-06] MEDS: Insulin DETEMIR 100 UNIT/ML X5UNITS SQ SCH (07:48)
--- NOTE | 2017-01-06 08:20 | Nephrology Progress Note ---
Date of Encounter: 01/06/17 Time of Encounter: 08:20 - Assessment and Plan (1) Acute renal failure Current Visit: Yes Status: Acute Patient with nonoliguric acute renal failure on history of stage II kidney disease with baseline GFR 50-60s and baseline creatinine 1.0-1.2. Creatinine continues to worsen 15.25 > 15.84 > 16.06. GFR 3. Patient is developing worsening uremic symptoms with nausea and dry heaves. Will consult to place permacath, hopefully today and then patient will have a dialysis session. Work up thus far including CT abd/pelvis with bilateral stones with no obstruction. CPK and uric acid levels not significant. Urine sodium was within normal limits. FEna calculated at 5.4% and FEurea at 64.9% suggestive of intrinsic renal disease. MURALI, ANCA and anti GBM levels are pending. Renal biopsy completed yesterday, pathology pending. Monitor kidney function, urine output and watch for uremic symptoms. Renal protective strategy: renal dose medications and avoid nephrotoxins if possible. Qualifiers: Acute renal failure type: unspecified Qualified Code(s): N17.9 - Acute kidney failure, unspecified (2) Anemia Current Visit: No Status: Acute Patient presented with Hgb of 7.2 on admission and received 1 unit pRBCs. Hgb 7.5 today. Just last week, iron studies done were within normal limits. No signs of active bleeding. Patient denies blood in emesis or stool. Continue to monitor hemoglobin. Qualifiers: Anemia type: other cause Other causes of anemia: chronic disease, kidney Qualified Code(s): N18.9 - Chronic kidney disease, unspecified; D63.1 - Anemia in chronic kidney disease (3) Nephrolithiasis Current Visit: No Status: Chronic Subjective Principal diagnosis: Acute renal failure Interval history: Mr Bruno is a 51yo male with acute renal failure of unknown etiology. Yesterday patient had CT guided renal ultrasound done by IR. No acute events overnight. Afebrile, vital signs within normal limits. Creatinine 15.25 > 15.84 > 16.06. Potassium appropriate 4.5. Patient seen and examined this morning. He is awake and alert, in no acute distress. He reports episodes of nausea with dry heaving. On exam, lungs clear to auscultation. Abdomen soft, non-tender. No pedal edema noted. Objective - Vital Signs Vital signs: Vital Signs Temp Pulse Resp BP Pulse Ox 01/06/17 06:39 97.3 F L 72 14 138/79 96 01/06/17 04:08 97.5 F L 77 16 128/79 95 01/05/17 23:49 97.7 F 82 16 129/76 96 01/05/17 19:43 98.5 F 88 16 163/95 96 01/05/17 15:45 97.7 F 80 20 136/82 01/05/17 15:30 97.7 F 82 18 164/76 01/05/17 15:15 97.7 F 80 16 170/98 01/05/17 15:00 97.5 F L 93 16 175/101 01/05/17 14:34 89 18 159/105 99 01/05/17 14:32 91 18 164/103 99 01/05/17 14:19 90 18 163/104 97 01/05/17 10:45 97.2 F L 88 18 155/89 96 Intake and Output 01/05/17 01/06/17 01/06/17 23:59 07:59 15:59 Intake Total 0 / 0 0 / 0 Output Total 250 / 250 600 / 600 Balance -250 / -250 -600 / -600 Intake: Oral 0 / 0 0 / 0 Output: Urine 250 / 250 600 / 600 Other: Weight 128 kg Blood Glucose* 217 183 Patient Weight 01/06/17 23:59 Weight 128 kg - General Appearance General appearance: Present: well-developed, well-nourished, appears started age EENT: Present: PERRL, mucous membranes moist Neck: Present: no JVD Respiratory: Present: clear. Absent: wheezing, rales, rhonchi Cardiology: Present: no murmurs, no rub, no gallops, no edema, regular rate, regular rhythm Gastrointestinal: Present: no tenderness. Absent: distended Integumentary: Present: warm and dry Neurologic: Present: no focal deficit, alert and oriented x3 Musculoskeletal: Present: no deformities, no erythema, no cyanosis Psychiatric: Present: mood/affect appropriate, cooperative - Lab 01/06/17 03:58 01/06/17 03:58 Most recent lab results Calcium 8.6 mg/dL (8.6-10.8) 01/06/17 03:58 Phosphorus 11.5 mg/dL (2.3-4.7) H 01/06/17 03:58 Magnesium 2.2 mg/dL (1.6-2.6) 01/05/17 08:56 Consult Discharge Plan - Plan Referrals: Shakira Diaz CNP [Primary Care Provider] - (web request 01/03/17)
[2017-01-06] MEDS: Ondansetron 4 MG/2 ML VIAL IVP PRN (11:26)
[2017-01-06] MEDS ORDERED: *HR* OxyCODONE/APAP 5/325 TABLET PO PRN (12:49)
[2017-01-06] MEDS ORDERED: Heparin 1,000 UNITS/500 mL NS 500 ML ONE (13:27)
[2017-01-06] MEDS ORDERED: ceFAZolin 2,000 MG in D5% in Water 100 ML IVPB ONE (14:29)
[2017-01-06] MEDS ORDERED: *HR* Heparin 5,000 UNIT/ML VIAL ONE (14:43)
--- NOTE | 2017-01-06 16:11 | Internal Med Progress Note ---
Date of Encounter: 01/06/17 Time of Encounter: 11:50 - Assessment and plan (1) Acute renal failure Current Visit: Yes Status: Acute Assessment and plan: Noted to have acute worsening of serum creatinine. Baseline serum creatinine noted to be around 1.2-1.5 in October 2016 and currently noted to be 16 today. Nephrology on board. Immune testing so far negative, hepatitis B antigen negative. Underwent renal biopsy yesterday, pathology results pending. Plan for coronary hemodialysis catheter placement today. No indication for urgent dialysis, no hyperkalemia/uremia/acute volume overload. Continues to have hypophosphatemia and anemia. Continue phosphate binders. Patient will require Epogen in the future. Qualifiers: Acute renal failure type: unspecified Qualified Code(s): N17.9 - Acute kidney failure, unspecified (2) Diabetes mellitus Current Visit: Yes Status: Chronic Assessment and plan: Accu-Chek blood glucose monitoring with basal bolus insulin regimen. Patient continues to have fasting hypoglycemia in the morning. We will decrease nighttime dose of long-acting insulin as he is noted to have fairly elevated blood sugars during the day. Continue sliding scale insulin. Diabetic diet. Qualifiers: Diabetes mellitus type: type 2 Diabetes mellitus complication status: with kidney complications Diabetes mellitus complication detail: with chronic kidney disease Diabetes mellitus usp insulin use: with usp use Chronic kidney disease stage: stage 3 (moderate) Qualified Code(s): E11.22 - Type 2 diabetes mellitus with diabetic chronic kidney disease; N18.3 - Chronic kidney disease, stage 3 (moderate); Z79.4 - [facility] (current) use of insulin (3) Obesity Current Visit: Yes Status: Chronic Qualifiers: Obesity type: due to excess calories Obesity severity: non-morbid Qualified Code(s): E66.09 - Other obesity due to excess calories (4) Hyperphosphatemia Current Visit: Yes Status: Chronic (5) Essential hypertension Current Visit: Yes Status: Chronic Assessment and plan: Patient was not on antihypertensives at home but his blood pressure has been elevated since admission, likely due to worsening renal function. Has been started on labetalol with good response. Continue to monitor. - Subjective Interval history: Reports feeling well. No pain at kidney biopsy site. Reports some dry heaves but no vomiting or abdominal pain. Awaiting PermCath placement today. - Constitutional Vitals: Temp Pulse Resp BP Pulse Ox 97.3 F L 79 15 123/80 97 01/06/17 06:39 01/06/17 11:34 01/06/17 11:34 01/06/17 11:34 01/06/17 11:34 General appearance: Present: A&O X 3, obese, answers questions appropriately - Respiratory Respiratory exam: Present: CTAB. Absent: accessory muscle use, rales, rhonchi, wheezes - Cardiovascular Cardiovascular exam: Present: RRR, +S1, +S2. Absent: diastolic murmur, gallop, rubs, systolic murmur - GI/Abdominal GI/Abdominal exam: Present: normal bowel sounds, soft, no peritoneal signs. Absent: distended, tenderness Internal Medicine: Result - Labs CBC & Chem 7: 01/06/17 03:58 01/06/17 03:58 Labs: Short CBC 01/06/17 Range/Units 03:58 WBC 7.0 (4.3-11.1) K/mcL Hgb 7.5 L (12.9-16.9) g/dL Hct 21.8 L (37.5-50.1) % Plt Count 161 (140-400) K/mcL Neutrophils # 4.6 (1.6-8.9) K/mcL BMP 01/06/17 03:58 Sodium 138 Potassium 4.5 Chloride 102 Carbon Dioxide 17 L BUN 120 H Creatinine 16.06 H Glucose 42 L Calcium 8.6 Liver Function 01/06/17 Range/Units 03:58 Albumin 2.7 L (3.5-5.0) g/dL - ABG Interpretation ABG results: PT/INR, D-dimer PT 11.7 Seconds (9.4-12.1) 01/04/17 13:00 - Impressions Impressions Guidance Needle Placement Ultrasound 01/06/17 00:00 IMPRESSION: Successful ultrasound and fluoroscopy guided tunneled catheter placement . D/ / Torrey Bills MD / Torrey Bills MD Interpreting Provider: Torrey Bills MD Insertion Tunneled Catheter 01/06/17 00:00 IMPRESSION: Successful ultrasound and fluoroscopy guided tunneled catheter placement . D/ / Torrey Bills MD / Torrey Bills MD Interpreting Provider: Torrey Bills MD Consult Discharge Plan - Plan Referrals: Shakira Diaz, NURSE CHARGE RN [Primary Care Provider] - (web request 01/03/17)
[2017-01-06] MEDS ORDERED: 0.9 % Sodium Chloride 250 ML IVC PRN (16:34)
[2017-01-06] MEDS ORDERED: *HR* Heparin 10,000 UNIT/10 ML VIAL IV PRN (16:34)
[2017-01-06] MEDS ORDERED: 0.9 % Sodium Chloride 1,000 ML PRIME SCH (16:45)
[2017-01-06] MEDS ORDERED: Insulin DETEMIR 100 UNIT/ML X5UNITS SQ SCH (21:00)
[2017-01-07 05:14] LABS: Basophils % 0.2 %; Eosinophils # 0.1 K/mcL (0.0-0.6); Eosinophils % 1.2 %; Hematocrit 22.4 % (37.5-50.1); Hemoglobin 7.7 g/dL (12.9-16.9); Immature Granulocytes % 0.9 % (0-4); Lymphocytes # 1.1 K/mcL (0.6-4.6); Lymphocytes % 16.5 %; Mean Corpuscular HGB Conc 34.4 g/dL (31.6-35.5); Mean Corpuscular Hemoglobin 30.9 pg (28.0-33.3); Mean Platelet Volume 10.8 fL (9.4-12.4); Monocytes # 0.5 K/mcL (0.0-1.3); Monocytes % 6.8 %; Neutrophils # 4.9 K/mcL (1.6-8.9); Platelet Count 170 K/mcL (140-400); Red Blood Count 2.49 M/mcL (4.19-5.50); Red Cell Distribution Width 12.2 % (11.5-14.5); Segmented Neutrophils % 74.4 %
[2017-01-07 05:31] LABS: Calcium 8.5 mg/dL (8.6-10.8); Potassium 4.5 mEq/L (3.5-4.5)
[2017-01-07] MEDS: *HR* Heparin 5,000 UNIT/ML VIAL SQ SCH ×2 (06:17→17:20)
[2017-01-07] MEDS: Insulin LISPRO 300 UNITS/3 ML VIAL SQ SCH ×4 (07:40→21:09)
[2017-01-07] MEDS: Pregabalin 50 MG CAPSULE PO SCH ×2 (07:55→21:08)
[2017-01-07] MEDS: Calcium Acetate 667 MG CAPSULE PO SCH ×3 (07:55→17:20)
[2017-01-07] MEDS: BuPROPion SR (12 HR) 150 MG TABLET PO SCH ×2 (07:55→21:07)
[2017-01-07] MEDS ORDERED: Insulin DETEMIR 100 UNIT/ML X5UNITS SQ SCH (09:00)
[2017-01-07] MEDS ORDERED: *HR* Heparin 10,000 UNIT/10 ML VIAL IV PRN (09:42)
[2017-01-07] MEDS ORDERED: 0.9 % Sodium Chloride 250 ML IVC PRN (09:42)
--- NOTE | 2017-01-07 10:35 | Nephrology Progress Note ---
Date of Encounter: 01/07/17 Time of Encounter: 10:32 - Assessment and Plan (1) Acute renal failure Current Visit: Yes Status: Acute Patient with nonoliguric acute renal failure on history of stage II kidney disease with baseline GFR 50-60s and baseline creatinine 1.0-1.2. Permacath placed yesterday and patient had dialysis. Creatinine and BUN improved appropriately with dialysis. Work up thus far including CT abd/pelvis with bilateral stones with no obstruction. CPK and uric acid levels not significant. Urine sodium was within normal limits. FEna calculated at 5.4% and FEurea at 64.9% suggestive of intrinsic renal disease. MURALI, ANCA and anti GBM levels are pending. Renal biopsy completed yesterday, pathology pending. Monitor kidney function, urine output and watch for uremic symptoms. Renal protective strategy: renal dose medications and avoid nephrotoxins if possible. Qualifiers: Acute renal failure type: unspecified Qualified Code(s): N17.9 - Acute kidney failure, unspecified (2) Anemia Current Visit: No Status: Acute Patient presented with Hgb of 7.2 on admission and received 1 unit pRBCs. Hgb 7.7 today. Iron studies, B12 and folate appropriate Will start aranesp 40mg SQ weekly while in the hospital. Continue to monitor hemoglobin. Qualifiers: Anemia type: other cause Other causes of anemia: chronic disease, kidney Qualified Code(s): N18.9 - Chronic kidney disease, unspecified; D63.1 - Anemia in chronic kidney disease (3) Nephrolithiasis Current Visit: No Status: Chronic Subjective Principal diagnosis: Acute renal failure Interval history: Mr Bruno is a 51yo male with acute renal failure s/p renal biopsy. Yesterday, a tunneled dialysis catheter was placed and patient had dialysis. No acute events overnight. Afebrile, vital signs within normal limits. Creatinine and BUN improved appropriately with dialysis. Potassium appropriate 4.3. Patient seen and examined this morning. He is awake and alert, in no acute distress. He reports still feeling nauseous. On exam, lungs clear to auscultation. Abdomen soft, non-tender. No pedal edema noted. Objective - Vital Signs Vital signs: Vital Signs Temp Pulse Resp BP Pulse Ox 01/07/17 07:30 97.5 F L 72 17 133/82 96 01/07/17 04:56 97.4 F L 71 16 116/69 98 01/06/17 23:30 97.5 F L 76 13 108/66 98 01/06/17 19:33 97.6 F 81 17 147/85 98 01/06/17 19:19 97.7 F 20 171/96 01/06/17 18:50 164/90 01/06/17 18:35 162/93 01/06/17 18:20 155/100 01/06/17 18:05 150/100 01/06/17 17:50 167/105 01/06/17 17:35 186/110 01/06/17 17:20 168/93 01/06/17 17:05 172/111 01/06/17 16:50 98.3 F 20 169/101 01/06/17 16:40 97.8 F 77 16 170/78 98 01/06/17 16:16 97.4 F L 83 15 98 01/06/17 16:10 97.7 F 81 16 165/98 97 01/06/17 15:55 97.5 F L 76 16 171/71 97 01/06/17 15:40 97.6 F 79 17 128/75 97 01/06/17 15:25 97.5 F L 77 16 159/87 91 01/06/17 11:34 79 15 123/80 97 Intake and Output 01/06/17 01/07/17 01/07/17 23:59 07:59 15:59 Intake Total 720 / 720 0 / 0 360 / 360 Output Total 1600 / 1600 Balance -880 / -880 0 / 0 360 / 360 Intake: Oral 120 / 120 0 / 0 360 / 360 Intake, Rinseback and 600 / 600 Flushes Output: Urine 0 / 0 Total Dialysis (HD) 1600 / 1600 Output Other: Meal Dinner Breakfast Percent of Meal Consumed 0% 100% Weight 129.274 kg Blood Glucose* 91 74 Hemodialysis Net Fluid 1000 Removed (mL) Patient Weight 01/07/17 23:59 Weight 129.274 kg - General Appearance General appearance: Present: well-developed, well-nourished, appears started age EENT: Present: PERRL, mucous membranes moist Neck: Present: no JVD Respiratory: Present: clear. Absent: wheezing, rales, rhonchi Cardiology: Present: no murmurs, no rub, no gallops, no edema, regular rate, regular rhythm Additional Comments: Tunneled dialysis catheter in right IJ - site is clean, dry and intact. Gastrointestinal: Present: normoactive bowel sounds, no tenderness, no masses. Absent: distended Integumentary: Present: no rash, warm and dry Neurologic: Present: no focal deficit, alert and oriented x3 Psychiatric: Present: mood/affect appropriate, cooperative - Lab 01/07/17 04:38 01/07/17 04:38 Most recent lab results Calcium 8.5 mg/dL (8.6-10.8) L 01/07/17 04:38 Phosphorus 11.5 mg/dL (2.3-4.7) H 01/06/17 03:58 Magnesium 2.2 mg/dL (1.6-2.6) 01/05/17 08:56 Consult Discharge Plan - Plan Referrals: Shakira Diaz, DWARF TREE GROWER [Primary Care Provider] - (web request 01/03/17)
--- NOTE | 2017-01-07 17:47 | Internal Med Progress Note ---
Date of Encounter: 01/07/17 Time of Encounter: 12:40 - Assessment and plan (1) Acute renal failure Current Visit: Yes Status: Acute Assessment and plan: Noted to have acute worsening of serum creatinine. Baseline serum creatinine noted to be around 1.2-1.5 in October 2016; Nephrology on board. Immune testing so far negative, hepatitis B antigen negative. Underwent renal biopsy, unable to find results on [employer]. Discussed with nephrology, biopsy shows diffuse oxalate crystals, suggestive of primary hyperoxaluria. Patient also likely has significant ATN, does have a chance of improvement in renal function as an outpatient. Plan to continue regular hemodialysis for now via tunneled hemodialysis catheter. Receiving second session today. automotive services manager on board to arrange for outpatient hemodialysis changed. Continue phosphate binders. Started on Epogen; Qualifiers: Acute renal failure type: unspecified Qualified Code(s): N17.9 - Acute kidney failure, unspecified (2) Diabetes mellitus Current Visit: Yes Status: Chronic Assessment and plan: Accu-Chek blood glucose monitoring. Noted to have multiple episodes of hypoglycemia after initiation of hemodialysis. Hold basal insulin at this time , continue low-dose sliding scale insulin as needed. Diabetic diet. Qualifiers: Diabetes mellitus type: type 2 Diabetes mellitus complication status: with kidney complications Diabetes mellitus complication detail: with chronic kidney disease Diabetes mellitus exterminator helper insulin use: with exterminator helper use Chronic kidney disease stage: stage 3 (moderate) Qualified Code(s): E11.22 - Type 2 diabetes mellitus with diabetic chronic kidney disease; N18.3 - Chronic kidney disease, stage 3 (moderate); Z79.4 - [facility] ([facility] use of insulin (3) Obesity Current Visit: Yes Status: Chronic Qualifiers: Obesity type: due to excess calories Obesity severity: non-morbid Qualified Code(s): E66.09 - Other obesity due to excess calories (4) Hyperphosphatemia Current Visit: Yes Status: Chronic (5) Essential hypertension Current Visit: Yes Status: Chronic (6) Anemia Current Visit: Yes Status: Acute Assessment and plan: Likely related to acute renal failure. No evidence of bleeding. Has been started on Aranesp. No indication for PRBC transfusion at this time. Continue to monitor hemoglobin closely. Qualifiers: Anemia type: other cause Other causes of anemia: chronic disease, kidney Qualified Code(s): N18.9 - Chronic kidney disease, unspecified; D63.1 - Anemia in chronic kidney disease - Subjective Interval history: Reports intermittent nausea and dry heaving. Awaiting second session of hemodialysis today. No chest pain, shortness of breath, vomiting. - Constitutional Vitals: Temp Pulse Resp BP Pulse Ox 97.8 F 87 17 143/89 98 01/07/17 15:56 01/07/17 15:56 01/07/17 15:56 01/07/17 15:56 01/07/17 15:56 General appearance: Present: A&O X 3, obese, answers questions appropriately - Respiratory Respiratory exam: Present: CTAB. Absent: accessory muscle use, rales, rhonchi, wheezes - Cardiovascular Cardiovascular exam: Present: RRR, +S1, +S2. Absent: diastolic murmur, gallop, rubs, systolic murmur - GI/Abdominal GI/Abdominal exam: Present: normal bowel sounds, soft, no peritoneal signs. Absent: distended, tenderness Internal Medicine: Result - Labs CBC & Chem 7: 01/07/17 04:38 01/07/17 04:38 Labs: Short CBC 01/07/17 Range/Units 04:38 WBC 6.6 (4.3-11.1) K/mcL Hgb 7.7 L (12.9-16.9) g/dL Hct 22.4 L (37.5-50.1) % Plt Count 170 (140-400) K/mcL Neutrophils # 4.9 (1.6-8.9) K/mcL BMP 01/07/17 04:38 Sodium 134 L Potassium 4.5 Chloride 98 Carbon Dioxide 21 BUN 91 H Creatinine 12.46 H Glucose 82 Calcium 8.5 L - ABG Interpretation ABG results: PT/INR, D-dimer PT 11.7 Seconds (9.4-12.1) 01/04/17 13:00 - Impressions Impressions Renal Biopsy CT 01/05/17 00:00 IMPRESSION: Successful CT guided random renal core biopsy . D/ / 01/07/2017 08:22:28 Sharon Kaur MD / gunjan Interpreting Provider: Sharon Kaur MD Consult Discharge Plan - Plan Referrals: Shakira Diaz, SOUND SYSTEM INSTALLER [Primary Care Provider] - (web request 01/03/17)
[2017-01-07] MEDS: Ondansetron 4 MG/2 ML VIAL IVP PRN (17:57)
[2017-01-07] MEDS ORDERED: *HR* Promethazine 25 MG/ML VIAL IVP ONE (22:04)
[2017-01-08 06:46] LABS: Basophils % 0.2 %; Eosinophils # 0.1 K/mcL (0.0-0.6); Eosinophils % 1.8 %; Hematocrit 22.8 % (37.5-50.1); Hemoglobin 7.6 g/dL (12.9-16.9); Immature Granulocytes % 0.9 % (0-4); Immature Platelets 3.7 % (1.1-6.1); Lymphocytes # 1.2 K/mcL (0.6-4.6); Lymphocytes % 22.2 %; Mean Corpuscular HGB Conc 33.3 g/dL (31.6-35.5); Mean Corpuscular Hemoglobin 30.4 pg (28.0-33.3); Mean Corpuscular Volume 91.2 fL (83.0-100.0); Mean Platelet Volume 11.1 fL (9.4-12.4); Monocytes # 0.6 K/mcL (0.0-1.3); Monocytes % 10.5 %; Neutrophils # 3.5 K/mcL (1.6-8.9); Platelet Count 174 K/mcL (140-400); Red Cell Distribution Width 12.3 % (11.5-14.5); Segmented Neutrophils % 64.4 %
[2017-01-08] MEDS: *HR* Heparin 5,000 UNIT/ML VIAL SQ SCH ×2 (06:54→17:12)
[2017-01-08 07:06] LABS: Calcium 8.5 mg/dL (8.6-10.8); Potassium 4.4 mEq/L (3.5-4.5)
[2017-01-08] MEDS ORDERED: 0.9 % Sodium Chloride 250 ML IVC PRN (08:00)
--- NOTE | 2017-01-08 08:08 | Nephrology Progress Note ---
Date of Encounter: 01/09/17 Time of Encounter: 08:25 - Assessment and Plan (1) Oxalate nephropathy Status: Acute Renal biopsy demonstrated significant calcium oxalate. 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 Hyperphosphatremia: Phos binders (recommend switching to Renvella -- which is not calcium based phos binder). Completed two of initial 3 HD treatments, so I've ordered 3.5hr of HD today ( Tuesday). BP control. DM control. Dialysis access: s/p Permacath [facility], he has ATN so his renal function may improve in time, Per the pt's floor RN, he has already been established with a dialysis chair time at [facility] on // for outpt HD (with weekly Cr checks to screen for any potential renal recovery). Anemia, will monitor: goal Hgb 10-11, recommend starting HELADIO. Adequate protein for a goal serum Albumin of 4. Okay to d/c after HD today. Discussed with the hospitalists and the dietetic tech. (2) ATN (acute tubular necrosis) Status: Acute (3) Acute worsening of stage 3 chronic kidney disease Status: Acute (4) Hyperphosphatemia Status: Chronic (5) Essential hypertension Status: Chronic (6) Type 2 diabetes mellitus treated with insulin Status: Chronic (7) Acute on chronic renal failure Status: Acute Subjective Principal diagnosis: Acute renal failure Interval history: Pt was s/e. He did not affirm N/V/D. We discussed his history / events from earlier in this hospitalization. He did not affirm major complaints. Hx of gastric bypass surgery. Objective - Vital Signs Vital signs: Vital Signs Temp Pulse Resp BP Pulse Ox 01/08/17 07:00 97.7 F 91 18 133/89 99 01/08/17 03:22 97.9 F 85 18 126/78 98 01/07/17 23:09 98.0 F 85 17 158/95 95 01/07/17 21:06 98.1 F 84 16 141/89 97 01/07/17 20:45 98.1 F 18 179/96 01/07/17 20:40 177/104 01/07/17 20:25 180/86 01/07/17 20:10 172/108 01/07/17 19:55 192/106 01/07/17 19:40 186/90 01/07/17 19:25 160/85 01/07/17 19:10 185/101 01/07/17 18:55 165/88 01/07/17 18:40 163/95 01/07/17 18:25 168/95 01/07/17 18:10 177/91 01/07/17 17:55 160/75 01/07/17 17:40 97.1 F L 18 175/103 01/07/17 15:56 97.8 F 87 17 143/89 98 01/07/17 11:35 147/82 01/07/17 11:07 97.6 F 75 17 147/82 98 Intake and Output 01/07/17 01/08/17 01/08/17 23:59 07:59 15:59 Intake Total 1380 / 1380 Output Total 2600 / 2600 Balance -1220 / -1220 Intake: Oral 780 / 780 Intake, Rinseback and 600 / 600 Flushes Output: Urine 0 / 0 Total Dialysis (HD) 2600 / 2600 Output Other: Meal Dinner Percent of Meal Consumed 95% Weight 127.5 kg Blood Glucose* 122 Hemodialysis Net Fluid 2000 Removed (mL) Patient Weight 01/08/17 23:59 Weight 127.5 kg - General Appearance General appearance: Present: well-developed, well-nourished, appears started age EENT: Present: ATNC, PERRL, mucous membranes moist Neck: Present: supple Respiratory: Present: clear Cardiology: Present: no edema, regular rate, regular rhythm, normal S1, normal S2 Dialysis Vascular Access: Venous Catheter (TDC in place) Gastrointestinal: Present: normoactive bowel sounds, no tenderness, no guarding Integumentary: Present: no rash, warm and dry Neurologic: Present: no focal deficit, no asterixis, alert and oriented x3 Musculoskeletal: Present: no deformities, no erythema, no clubbing Psychiatric: Present: mood/affect appropriate, cooperative - Lab 01/08/17 06:10 01/08/17 06:10 Most recent lab results Calcium 8.5 mg/dL (8.6-10.8) L 01/08/17 06:10 Phosphorus 11.5 mg/dL (2.3-4.7) H 01/06/17 03:58 Magnesium 2.2 mg/dL (1.6-2.6) 01/05/17 08:56 Consult Discharge Plan - Plan Instructions: Labetalol (By mouth), Sevelamer (By mouth), Chronic Kidney Disease (DC) Additional Instructions: F/up for HD- MWF at [facility] Referrals: Shakira Diaz CNP [Primary Care Provider] - (web request 01/04/16.. please call pcp) Prescriptions: Labetalol [Trandate] 100 mg PO BID #30 tablet Pyridoxine (B-6) [Vitamin B-6] 500 mg PO DAILY 20 Days Sevelamer [Renvela] 1,600 mg PO TIDWM #120 tablet
[2017-01-08] MEDS ORDERED: 0.9 % Sodium Chloride 2,000 ML ONE (08:44)
[2017-01-08] MEDS: Insulin LISPRO 300 UNITS/3 ML VIAL SQ SCH ×4 (08:52→22:00)
[2017-01-08] MEDS: Pregabalin 50 MG CAPSULE PO SCH ×2 (08:58→21:16)
[2017-01-08] MEDS: BuPROPion SR (12 HR) 150 MG TABLET PO SCH ×2 (08:59→21:04)
[2017-01-08] MEDS: Pyridoxine (B-6) 50 MG TABLET PO SCH (10:02)
--- NOTE | 2017-01-08 17:51 | Internal Med Progress Note ---
Date of Encounter: 01/08/17 Time of Encounter: 17:49 - Assessment and plan (1) Acute renal failure Current Visit: Yes Status: Acute Assessment and plan: Noted to have acute worsening of serum creatinine. Baseline serum creatinine noted to be around 1.2-1.5 in October 2016; Nephrology on board. Immune testing so far negative, hepatitis B antigen negative. Underwent renal biopsy, unable to find results on [employer]. Discussed with nephrology, biopsy shows diffuse oxalate crystals, suggestive of primary hyperoxaluria. Patient also likely has significant ATN, does have a chance of improvement in renal function as an outpatient. Plan to continue regular hemodialysis for now via tunneled hemodialysis catheter. Receiving third session today. public services assistant on board to arrange for outpatient hemodialysis changed. Patient's first outpatient dialysis session is going to be on Tuesday but patient would like to be discharged earlier, plan for another session tomorrow after which he may be discharged. Continue phosphate binders, changed to Renvela. Started on Epogen; Qualifiers: Acute renal failure type: unspecified Qualified Code(s): N17.9 - Acute kidney failure, unspecified (2) Diabetes mellitus Current Visit: Yes Status: Chronic Assessment and plan: Accu-Chek blood glucose monitoring. Blood sugars noted to be better controlled , fasting blood sugar in 80s. Continue sliding scale insulin. Diabetic diet. Qualifiers: Diabetes mellitus type: type 2 Diabetes mellitus complication status: with kidney complications Diabetes mellitus complication detail: with chronic kidney disease Diabetes mellitus buttermaker continuous churn insulin use: with correction use Chronic kidney disease stage: stage 3 (moderate) Qualified Code(s): E11.22 - Type 2 diabetes mellitus with diabetic chronic kidney disease; N18.3 - Chronic kidney disease, stage 3 (moderate); Z79.4 - long term care phlebotomist (current) use of insulin (3) Obesity Current Visit: Yes Status: Chronic Qualifiers: Obesity type: due to excess calories Obesity severity: non-morbid Qualified Code(s): E66.09 - Other obesity due to excess calories (4) Hyperphosphatemia Current Visit: Yes Status: Chronic Assessment and plan: Related to chronic kidney disease. Continue phosphate binders. Renal diet. (5) Essential hypertension Current Visit: Yes Status: Chronic (6) Anemia Current Visit: Yes Status: Acute Qualifiers: Anemia type: other cause Other causes of anemia: chronic disease, kidney Qualified Code(s): N18.9 - Chronic kidney disease, unspecified; D63.1 - Anemia in chronic kidney disease - Subjective Interval history: No new complaints. Received third hemodialysis session today. Eager to be discharged home. - Constitutional Vitals: Temp Pulse Resp BP Pulse Ox 97.9 F 84 16 143/80 98 01/08/17 15:23 01/08/17 15:23 01/08/17 15:23 01/08/17 15:23 01/08/17 15:23 General appearance: Present: A&O X 3, obese, answers questions appropriately - Respiratory Respiratory exam: Present: CTAB. Absent: accessory muscle use, rales, rhonchi, wheezes - Cardiovascular Cardiovascular exam: Present: RRR, +S1, +S2. Absent: diastolic murmur, gallop, rubs, systolic murmur Internal Medicine: Result - Labs CBC & Chem 7: 01/08/17 06:10 01/08/17 06:10 Labs: Short CBC 01/08/17 Range/Units 06:10 WBC 5.5 (4.3-11.1) K/mcL Hgb 7.6 L (12.9-16.9) g/dL Hct 22.8 L (37.5-50.1) % Plt Count 174 (140-400) K/mcL Neutrophils # 3.5 (1.6-8.9) K/mcL BMP 01/08/17 06:10 Sodium 137 Potassium 4.4 Chloride 100 Carbon Dioxide 25 BUN 51 H D Creatinine 9.07 H Glucose 86 Calcium 8.5 L - ABG Interpretation ABG results: PT/INR, D-dimer PT 11.7 Seconds (9.4-12.1) 01/04/17 13:00 Consult Discharge Plan - Plan Referrals: Shakira Diaz, POLISHER APPRENTICE [Primary Care Provider] - (web request 01/03/17)
[2017-01-09] MEDS: Insulin LISPRO 300 UNITS/3 ML VIAL SQ SCH ×2 (07:34→12:07)
[2017-01-09] MEDS: *HR* Heparin 5,000 UNIT/ML VIAL SQ SCH (09:07)
[2017-01-09] MEDS: BuPROPion SR (12 HR) 150 MG TABLET PO SCH (09:08)
[2017-01-09] MEDS: Pregabalin 50 MG CAPSULE PO SCH (09:08)
[2017-01-09] MEDS: Pyridoxine (B-6) 50 MG TABLET PO SCH (09:59)
--- NOTE | 2017-01-09 11:10 | Nephrology Progress Note ---
Date of Encounter: 01/09/17 Time of Encounter: 08:30 - Assessment and Plan (1) Oxalate nephropathy Status: Acute I'll call tomorrow morning to the outpatient dialysis unit to make arrangements for him to have dialysis as an outpatient starting tomorrow. He is ready for discharge from a nephrology perspective: Permacath is in place and appearantly the dialysis unit has already asked him but Tuesday was picked to start, but from a nephrology perspective he appears ready to d/c today (Tuesday). Renal biopsy demonstrated significant calcium oxalate. 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 Hyperphosphatremia: Phos binders (recommend switching to Renvella -- which is not calcium based phos binder). Completed two of initial 3 HD treatments. BP control. DM control. Dialysis access: s/p Permacath Usp, he has ATN so his renal function may improve in time, Per the pt's floor RN, he has already been established with a dialysis chair time at [facility] on M// for outpt HD (with weekly Cr checks to screen for any potential renal recovery). Anemia, will monitor: goal Hgb 10-11, recommend starting HELADIO. Adequate protein for a goal serum Albumin of 4. Okay to d/c after HD today. Discussed with the hospitalists and the founder and chief technical officer. (2) ATN (acute tubular necrosis) Status: Acute (3) Acute worsening of stage 3 chronic kidney disease Status: Acute (4) Hyperphosphatemia Status: Chronic (5) Essential hypertension Status: Chronic (6) Type 2 diabetes mellitus treated with insulin Status: Chronic (7) Acute on chronic renal failure Status: Acute Subjective Principal diagnosis: Acute renal failure Interval history: Pt was s/e. He reported feeling well today and said that the best possible shift for him is in the afternoons. Objective - Vital Signs Vital signs: Vital Signs Temp Pulse Resp BP Pulse Ox 01/09/17 07:30 97.8 F 78 15 145/81 95 01/09/17 03:23 97.8 F 83 16 106/63 97 01/08/17 23:59 97.8 F 80 16 100/65 98 01/08/17 19:34 98.5 F 88 18 134/79 97 01/08/17 15:23 97.9 F 84 16 143/80 98 01/08/17 14:32 98.1 F 20 162/100 01/08/17 14:00 166/78 01/08/17 13:45 171/90 01/08/17 13:30 154/93 01/08/17 13:15 157/94 01/08/17 13:00 150/84 01/08/17 12:45 158/92 01/08/17 12:30 127/71 01/08/17 12:15 129/56 01/08/17 12:00 154/97 01/08/17 11:45 138/74 01/08/17 11:30 142/76 01/08/17 11:15 143/87 01/08/17 11:00 139/82 Intake and Output 01/08/17 01/09/17 01/09/17 23:59 07:59 15:59 Intake Total 1560 / 1560 Balance 1560 / 1560 Intake: Oral 760 / 760 Free Water 800 / 800 Other: Meal Dinner Percent of Meal Consumed 100% Weight 125.7 kg Blood Glucose* 151 124 159 Patient Weight 01/09/17 23:59 Weight 125.7 kg - General Appearance Exam: General appearance: Present: well-developed, well-nourished, appears started age EENT: Present: ATNC, PERRL, mucous membranes moist Neck: Present: supple Respiratory: Present: clear Cardiology: Present: no edema, regular rate, regular rhythm, normal S1, normal S2 Dialysis Vascular Access: Venous Catheter (TDC in place) Gastrointestinal: Present: normoactive bowel sounds, no tenderness, no guarding Integumentary: Present: no rash, warm and dry Neurologic: Present: no focal deficit, no asterixis, alert and oriented x3 Musculoskeletal: Present: no deformities, no erythema, no clubbing Psychiatric: Present: mood/affect appropriate, cooperative - Lab 01/08/17 06:10 01/08/17 06:10 Most recent lab results Calcium 8.5 mg/dL (8.6-10.8) L 01/08/17 06:10 Phosphorus 11.5 mg/dL (2.3-4.7) H 01/06/17 03:58 Magnesium 2.2 mg/dL (1.6-2.6) 01/05/17 08:56 Consult Discharge Plan - Plan Instructions: Labetalol (By mouth), Sevelamer (By mouth), Chronic Kidney Disease (DC) Additional Instructions: F/up for HD- MWF at [facility] Referrals: Shakira Diaz CNP [Primary Care Provider] - (web request 01/04/16.. please call pcp) Prescriptions: Labetalol [Trandate] 100 mg PO BID #30 tablet Pyridoxine (B-6) [Vitamin B-6] 500 mg PO DAILY 20 Days Sevelamer [Renvela] 1,600 mg PO TIDWM #120 tablet
[2017-01-09 11:13] VITALS: BP 153/93
--- NOTE | 2017-01-09 12:20 | Discharge Summary ---
Date of Encounter: 01/09/17 Time of Encounter: 12:16 - Discharge Diagnosis (1) Acute renal failure Priority: Primary Status: Acute Qualifiers: Acute renal failure type: with acute tubular necrosis Qualified Code(s): N17.0 - Acute kidney failure with tubular necrosis (2) Diabetes mellitus Priority: Secondary Status: Chronic Qualifiers: Diabetes mellitus type: type 2 Diabetes mellitus complication status: with kidney complications Diabetes mellitus complication detail: with chronic kidney disease Diabetes mellitus director long term care insulin use: with care home use Chronic kidney disease stage: stage 3 (moderate) Qualified Code(s): E11.22 - Type 2 diabetes mellitus with diabetic chronic kidney disease; N18.3 - Chronic kidney disease, stage 3 (moderate); 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 (3) Obesity Priority: Secondary Status: Chronic Qualifiers: Obesity type: due to excess calories Obesity severity: non-morbid Qualified Code(s): E66.09 - Other obesity due to excess calories (4) Hyperphosphatemia Priority: Secondary Status: Chronic (5) Essential hypertension Priority: Secondary Status: Chronic (6) Anemia Priority: Primary Status: Acute Qualifiers: Anemia type: other cause Other causes of anemia: chronic disease, kidney Qualified Code(s): N18.9 - Chronic kidney disease, unspecified; D63.1 - Anemia in chronic kidney disease - Discharge Medications Prescriptions: Labetalol [Trandate] 100 mg PO BID #30 tablet Pyridoxine (B-6) [Vitamin B-6] 500 mg PO DAILY 20 Days Sevelamer [Renvela] 1,600 mg PO TIDWM #120 tablet Home Medications: BuPROPion SR (12 HR) [Wellbutrin SR] 150 mg PO BID 01/08/16 [History] Insulin LISPRO [Humalog] 0 units SQ TID MDD PER SLIDING SCALE 01/08/16 [History] DULoxetine [Cymbalta] 30 mg PO DAILY 12/31/16 [History] Lidocaine 1 patch TP DAILY PRN 12/31/16 [History] Pregabalin [Lyrica] 100 mg PO BID 12/31/16 [History] Rosuvastatin Calcium 40 mg PO DAILY 12/31/16 [History] Sodium Bicarbonate 650 mg PO BID #60 tablet 01/02/17 [Rx] Multivitamin-Min/Iron/FA/Vit K [Multi-Day Plus Minerals Tablet] 1 tab PO DAILY 01/04/17 [History] Insulin Glargine,Hum.rec.anlog [Toutristao Solostar] 10 units SQ BID #0 01/09/17 [ Rx] Labetalol [Trandate] 100 mg PO BID #30 tablet 01/09/17 [Rx] Pyridoxine (B-6) [Vitamin B-6] 500 mg PO DAILY 20 Days 01/09/17 [Rx] Sevelamer [Renvela] 1,600 mg PO TIDWM #120 tablet 01/09/17 [Rx] Allergies/Adverse Reactions: Allergies No Known Allergies Allergy (Verified 12/31/16 14:43) Date of admission: 01/04/17 18:29 Primary care physician: Shakira Diaz CNP Consults: 01/06/17 12:15 Consult to Interventional Radiology [CONS] Routine Consulting Provider: Radiology Interventional Cols Reason for Consult: Need permacath placed today or tomorrow please for hemodialysis Call Completed: Yes 01/06/17 16:45 Consult to Dialysis [CONS] ONCE 01/07/17 09:45 Consult to Dialysis [CONS] ONCE 01/07/17 17:57 Consult to Nutrition [CONS] Routine Comment: patient with hyperoxaluria Consulting Provider: NUTRITION Reason for Dietary Consult: Diet Education 01/08/17 08:15 Consult to Dialysis [CONS] ONCE Discharging clinician: Sloane Alvarez Anticipated date of discharge: 01/09/17 - Patient Status Disposition: Home, Self-Care Condition: Fair Functional capacity at discharge: independent ambulation Overall status at discharge: patient is progressing back to baseline - Discharge Instructions Instructions: Labetalol (By mouth), Sevelamer (By mouth), Chronic Kidney Disease (DC) Follow Up With: Shakira Diaz CNP [Primary Care Provider] - (web request 01/04/16.. please call pcp) Additional Instructions: F/up for HD- MWF at [facility] - Diet and Activity Activity: resume usual activities as tolerated Diet: diabetic diet, low fat, low cholesterol, low salt diet, other (renal, low oxalate diet) Hospital course: Mr. Bruno is a 51 year old male with history of diabetes, chronic kidney disease who was admitted with worsening renal function. Patient was noted to have stable chronic kidney disease until about 2 months ago when he started having acute worsening of serum creatinine, which has increased from around 3- 15. He was recommended to undergo renal biopsy the last time he presented to the emergency room, however he left AGAINST MEDICAL ADVICE. Nephrology was consulted during this admission and patient underwent renal biopsy, per Nephrology, report showing oxalate crystals in the kidneys along with a component of ATN; it was sent out to [facility] and formal report not available on 2,10E+07 at this time. Patient subsequently received tunnelled hemodialysis catheter and has been started on regular hemodialysis sessions. He received outpatient dialysis chair placement and is ready for discharge at this time with outpatient follow- up. He has been advised about low oxalate diet and his phosphate binders have been changed to Renvela. Patient's blood sugars were noted to be well controlled with the initiation of dialysis and his basal insulin dose is being decreased accordingly. - Time Spent with Patient Total time spent providing and/or coordinating discharge services: Greater than 30 minutes (50 min) - Constitutional Vitals: Temp Pulse Resp BP Pulse Ox 97.8 F 75 16 153/93 96 01/09/17 11:12 01/09/17 11:12 01/09/17 11:12 01/09/17 11:12 01/09/17 11:12 General appearance: Present: A&O X 3 (extremely anxious to leave), obese, answers questions appropriately - Respiratory Respiratory exam: Present: CTAB. Absent: accessory muscle use, rales, rhonchi, wheezes - Cardiovascular Cardiovascular exam: Present: RRR, +S1, +S2. Absent: diastolic murmur, gallop, rubs, systolic murmur
[2017-01-09 14:56] LABS: Total Volume 24 Hour,Urine 0.77 Liters (0.80-1.80)
[2017-01-09 15:09] LABS: Creatinine 24 Hour,Urine 0.25 g/day (0.71-1.65)
== END 2017-01-09 12:59 | disposition home or self-care (01) | DRG 684 ==
LOC: 2ANU 12:22 → EMEROO 12:22 → 2ANU 16:18
PROVIDERS: ADMIT Internal Medicine; ATTEND Internal Medicine
PROC: IRPERMA (2017-01-06 13:00)

== ENCOUNTER 2018-03-26 14:58 | Inpatient (IN) ==
--- NOTE | 2018-03-26 18:24 | Internal Med History&Physical ---
Date of Encounter: 03/26/18 Time of Encounter: 18:10 Internal Medicine - H&P: HPI Chief complaint: SOB Admitted From: Home Plans for Post Hospital Care: Home History of present illness: Mr. Bruno is a 52 year old male who has history of end-stage renal disease on hemodialysis Tuesday, diabetes, hypertension and CHF chronic pleural effusion presented to [facility] for chest pain, shortness of breath, and the lower back pain, worsening at edema for 3-4 days. Patient had recent left BKA, was discharged to alf facility, he will just discharged back home a week ago. He started to develop left-sided chest pain, constant 7 out of 10, sharp,constant worsening with deep breaths for 3 days. He also become very shortness of breath over last 5 days, unable to take deep breaths wake him up at night. He noticed worsening edema from right lower extremity and the abdominal area. He will he complains of lower back pain left buttock cramping, burning constant for few days. In the [place],chest x-ray shows pneumonia, pulmonary edema, sodium 132 potassium is 3.6 creatinine 6.19 pH 7.14 PCo2 32 WBC 7.3 hemoglobin 10.3 patient had a recent a right-sided thoracentesis 2 weeks ago with 2 L bloody fluids out in [facility]. Patient is going to be admitted for #1 hospital associated pneumonia, will give Vanco and the Zosyn and azithromycin, check urine legionella, stresp, # 2 acute on chronic systolic CHF exacerbation, discussed nephrology for fluids removal. . 3 CHEST PAIN, CHECK A TROPONIN TO RULE OUT ACUTE UT. #4 back pain check XR. #5 pelural effusion. #6 fluid over load I discussed the CODE STATUS with patient, he wants to be DNR CCA. Past Med Surg Social Fam HX - Past Medical History Medical history: CHF, coronary artery disease, diabetes, hyperlipidemia, hypertension, kidney stones, renal disease, thyroid disease Additional medical history: neuropathy Psychiatric history: depression - Past Surgical History Surgical History: bariatric surgery, other Additional surgical history: GASTRIC BYPASS. RIGHT UPPER CHEST DIALYSIS CATHETER. LEFT WRIST DIALYSIS FISTULA - Social History Smoking Status: Never smoker Smokeless Tobacco Status: No Alcohol use: none Drug use: none - Family History Father Adopted: No Living Status: Hx Family Cardiac Disorders: Yes Hx Family Respiratory Disorders: Yes Hx Family Cancer: No Hx Family GI Disorders: No Hx Family Endocrine Disorder: No Hx Family Neuromuscular Disorders: No Hx Family Neurologic Disorders: No Hx Family HEENT Disorders: No Hx Family Autoimmune Disorders: No Internal Medicine - H&P: Meds HYDROcodone/Acet 5/325 mg [[place] 5-325 mg] 1 tab PO BID PRN 07/21/17 [History] Aspirin [Lo-Dose Aspirin EC] 81 mg PO DAILY 03/26/18 [History] Calcitriol 0.5 mcg PO DAILY 03/26/18 [History] Carvedilol 12.5 mg PO BID 03/26/18 [History] Clopidogrel [Plavix] 75 mg PO DAILY 03/26/18 [History] Cyclobenzaprine [Flexeril] 10 mg PO BID PRN 03/26/18 [History] Ferric Citrate [Auryxia] 420 mg PO TID MDD 8 tablets 03/26/18 [History] Furosemide [Lasix] 40 mg PO BID 03/26/18 [History] Insulin LISPRO [HumaLOG] 5 - 10 unit SQ TIDWM 03/26/18 [History] Isosorbide MONOnitrate (24 HR) [Imdur] 30 mg PO DAILY 03/26/18 [History] L.acidoph,Paracasei, B.lactis [Probiotic] 1 cap PO DAILY 03/26/18 [History] Levothyroxine [Synthroid] 25 mcg PO DAILY 03/26/18 [History] Lisinopril [Zestril] 20 mg PO DAILY 03/26/18 [History] OxyCODONE Immed Rel [Roxicodone 10 MG] 10 mg PO Q6H PRN 03/26/18 [History] Ropinirole HCl [Requip] 4 mg PO HS 03/26/18 [History] Rosuvastatin [Crestor] 40 mg PO HS 03/26/18 [History] Vitamin B Complex [B Complex] 1 each PO DAILY 03/26/18 [History] buPROPion HCl [Zyban] 150 mg PO BID 03/26/18 [History] 3 Allergy/AdvReac Type Severity Reaction Status Date / Time No Known Allergies Allergy Verified 03/26/18 11:14 All Systems PM: A 10-system review of systems was performed and is negative for pertinent findings except as documented above in the HPI. - Constitutional Vitals: Temp Pulse Resp BP Pulse Ox 97.7 F 75 16 130/79 100 03/26/18 17:13 03/26/18 17:13 03/26/18 17:13 03/26/18 17:13 03/26/18 17:13 General appearance: Present: A&O X 3, pleasant, obese Exam: CONSTITUTIONAL: Patient appears as an age appropriate male well developed, in no acute distress. EYES Clear sclerae, bilateral pupils are equal, reactive to light and accommodation. Extraocular movements are intact RESPIRATORY: No accessory muscle use, bilateral basilar crackles to auscultation , no wheezing CARDIOVASCULAR: Regular heart rate, normal S1 and S2, no murmurs GASTROINTESTINAL: bowel sounds present, soft, no tenderness. No hepatosplenomegaly. No bilateral CVA tenderness MUSCULOSKELETAL: Joints in normal range of motion, no clubbing, no edema, no cyanosis. Left BKA, right severe edema LYMPHATIC no lymphadenopathy in neck, groin and axilla bilaterally, no thyromegaly. NEUROLOGIC: CN II to XII are grossly intact, no focal neurological deficit. Deep tendon reflexes 2+ bilaterally. Normal light touch sensation to upper and lower extremity PSYCHIATRIC: Oriented x3, with good insight, mood is euthymic. No hallucinations or delusions. SKIN: Skin warm and dry, no rashes, no open wound. - Assessment and plan (1) Pneumonia Current Visit: Yes Status: Acute Assessment and plan: Possible gram-negative bacterial pneumonia due to recent admission the dialyzes we will givr vancomycin and the Zosyn, azithromycin, check blood culture, strep and legionella Qualifiers: Pneumonia type: due to other aerobic Gram-negative bacteria Laterality: bilateral Lung location: unspecified part of lung Qualified Code(s): J15.6 - Pneumonia due to other Gram-negative bacteria (2) ESRD (end stage renal disease) Current Visit: Yes Status: Chronic Assessment and plan: Consult a area operations director patient is on dialyzes Tuesday currently his potassium 3.6 able to lie flat on 2 L nasal cannula. I Called Dr. Kumar who is his area operations director (3) CHF (congestive heart failure) Current Visit: Yes Status: Acute Assessment and plan: Chest x-ray shows pulmonary edema, likely for fluids overload nephrology is consulted and will need HD for fluids removal Qualifiers: Heart failure type: combined systolic and diastolic Heart failure chronicity: acute on chronic Qualified Code(s): I50.43 - Acute on chronic combined systolic (congestive) and diastolic (congestive) heart failure (4) Chest pain Current Visit: Yes Status: Acute Assessment and plan: check trop Qualifiers: Chest pain type: chest pain on breathing Qualified Code(s): R07.1 - Chest pain on breathing; R07.81 - Pleurodynia (5) Back pain Current Visit: Yes Status: Acute Assessment and plan: L-spine XR Qualifiers: Back pain location: low back pain Chronicity: acute Back pain laterality : left Sciatica presence: without sciatica Qualified Code(s): M54.5 - Low back pain (6) Pleural effusion Current Visit: Yes Status: Acute Assessment and plan: chronic right pleural effusion, had right thoracentesis 2 weeks ago at [facility] with 2 L blood fluid out (7) Chronic respiratory failure with hypoxia Current Visit: Yes Status: Chronic Assessment and plan: Patient has been on 2 L nasal nasal cannula continuously due to CHF (8) DVT prophylaxis Current Visit: Yes Status: Acute Assessment and plan: heparin SC (9) Dyspnea Current Visit: Yes Status: Acute Assessment and plan: mult-factorial Qualifiers: Dyspnea type: orthopnea Qualified Code(s): R06.01 - Orthopnea (10) Metabolic acidosis Current Visit: Yes Status: Acute Assessment and plan: severe PH 7.1, from ESRD, will give Bicarb (11) Essential hypertension Current Visit: No Status: Chronic (12) Diabetes mellitus Current Visit: Yes Status: Chronic Assessment and plan: add SSI Qualifiers: Diabetes mellitus type: type 2 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 use Diabetes mellitus complication status: with kidney complications Diabetes mellitus complication detail: with chronic kidney disease Chronic kidney disease stage: stage 3 (moderate) Qualified Code(s): E11.22 - Type 2 diabetes mellitus with diabetic chronic kidney disease; N18.3 - Chronic kidney disease, stage 3 (moderate); Z79.4 - long term care administrator (current) use of insulin (13) Anasarca Current Visit: Yes Status: Chronic Assessment and plan: from fluids overload (14) Pulmonary edema Current Visit: Yes Status: Acute Assessment and plan: from CHF exacerbation Qualifiers: Chronicity: acute Qualified Code(s): J81.0 - Acute pulmonary edema - Time Spent With Patient Total time spent is greater than 50% in coordination of care (as documented) at patient's floor/unit and/or counseling patient: Greater than 35 minutes
[2018-03-26] MEDS ORDERED: *HR* OxyCODONE Immed Rel 5 MG TABLET PO PRN (18:39)
[2018-03-26] MEDS ORDERED: Naloxone 0.4 MG/ML INJ IVP PRN (18:43)
[2018-03-26] MEDS ORDERED: D5% in Water 1,000 ML IVC PRN (18:53)
[2018-03-26] MEDS ORDERED: *HR* Dextrose 50 % in Water (Syg) 50 ML SYRINGE IVP PRN (18:53)
[2018-03-26] MEDS ORDERED: Dextrose Gel 15 GM/37.5 ML TUBE PO PRN ×2 (18:53)
[2018-03-26] MEDS ORDERED: Vancomycin (wt based) 1,000 MG VIAL IVPB SCH (19:00)
[2018-03-26] MEDS ORDERED: Levofloxacin 750 MG/150 ML 750 MG/150 ML BAG IVPB ONE (19:00)
[2018-03-26] MEDS: BuPROPion SR (12 HR) 150 MG TABLET PO SCH (19:52)
[2018-03-26] MEDS: rOPINIRole 1 MG TABLET PO SCH (19:52)
[2018-03-26] MEDS: Furosemide 40 MG TABLET PO SCH (19:53)
[2018-03-26] MEDS: (Ferric Citrate [Auryxia] 420 MG) PO SCH (19:54)
[2018-03-26] MEDS: Insulin LISPRO 300 UNITS/3 ML VIAL SQ SCH ×2 (20:00)
[2018-03-26 21:04] LABS: Estimated Average Glucose 128 mg/dl; Hemoglobin A1C 6.1 %
[2018-03-26] MEDS: Piperacillin/Tazobactam 3.375 GM in 0.9 % Sodium Chloride Mini Bag 100 ML IVPB SCH (21:28)
[2018-03-26] MEDS: *HR* HYDROcodone/Acet 5/325 mg TABLET PO PRN (21:28)
[2018-03-26] MEDS: *HR* Heparin 5,000 UNIT/ML VIAL SQ SCH (23:31)
[2018-03-27] MEDS ORDERED: 0.9 % Sodium Chloride 1,000 ML ONE (01:43)
[2018-03-27] MEDS ORDERED: 0.9 % Sodium Chloride 1,000 ML IVC ONE (01:54)
[2018-03-27 01:59] LABS: ABG Base Excess 3 mEq/L (-2 to 3); ABG HCO3 26 mEq/L (21-27); ABG Oxygen Saturation 100 % (95-98); ABG PCO2 35 mmHg (35-45); ABG PH 7.49 pH Units (7.32-7.45); ABG PO2 221 mmHg (85-104); ABG TCO2 28 mEq/L (20-26)
[2018-03-27] MEDS ORDERED: *HR* Dextrose 50 % in Water (Syg) 50 ML SYRINGE IVP ONE (02:02)
[2018-03-27 02:45] LABS: Eosinophils % 0.4 %; Hematocrit 33.8 % (37.5-50.1); Hemoglobin 10.4 g/dL (12.9-16.9); Immature Granulocytes % 0.5 % (0-4); Lymphocytes # 0.6 K/mcL (0.6-4.6); Lymphocytes % 6.7 %; Mean Corpuscular HGB Conc 30.8 g/dL (31.6-35.5); Mean Corpuscular Hemoglobin 31.7 pg (28.0-33.3); Mean Platelet Volume 9.8 fL (9.4-12.4); Monocytes # 0.4 K/mcL (0.0-1.3); Monocytes % 5.1 %; Neutrophils # 7.5 K/mcL (1.6-8.9); Nucleated Red Blood Cells 0.4 /100 WBC (0); Platelet Count 220 K/mcL (140-400); Red Blood Count 3.28 M/mcL (4.19-5.50); Red Cell Distribution Width 16.6 % (11.5-14.5); Segmented Neutrophils % 87.3 %
[2018-03-27] MEDS ORDERED: Furosemide 40 MG/4 ML VIAL IVP ONE (02:52)
[2018-03-27 02:53] LABS: Alanine Aminotransferase 13 Units/L (7-52); Albumin 2.1 g/dL (3.5-5.7); Albumin/Globulin Ratio 0.7 (1.1-2.2); Alkaline Phosphatase 182 Units/L (34-104); Aspartate Amino Transferase 22 Units/L (13-39); BUN/Creatinine Ratio 7 (6-26); Bilirubin,Total 0.5 mg/dL (0.3-1.0); Blood Urea Nitrogen 44 mg/dL (6-20); Calcium 8.2 mg/dL (8.6-10.3); Carbon Dioxide 21 mEq/L (23-29); Chloride 94 mEq/L (98-107); Glucose 137 mg/dL (70-105); Osmolality,Calculated 283 (280-300); Potassium 4.3 mEq/L (3.5-5.1); Sodium 130 mEq/L (136-145); Total Protein 5.1 g/dL (6.4-8.9); eGFR For Non-African Americans 9 (> 60)
[2018-03-27 03:26] LABS: Troponin I < 0.03 ng/mL (< 0.04)
--- NOTE | 2018-03-27 03:49 | Event Note ---
Date of Encounter: 03/27/18 Time of Encounter: 01:40 Responded to a rapid response which was called at 1:40 AM. Upon initial assessment patient was unresponsive with agonal breathing. Per the nurse the patient was seen 1 hour prior and alert oriented 3 in no acute distress, however, when he returned to respond to the patient's bed alarm, patient was found unresponsive, slumped over the bedside with his nasal cannula dislodged and skin dusky in appearance. Agonal breathing was noted. Patient did not respond to sternal rub. I was able to palpate a carotid pulse. Patient was found to be hypotensive with a blood pressure of 69/48. Heart rate of 64. Saturation was 100% on 15 L. A stat ABG was drawn which showed mild alkalosis with a PCO2 of 35. 0.4 mg of Narcan were given. At 146 and patient began to respond and answer questions. Blood per glucose was 136. Was started on fluid bolus. Blood pressure responded to the bolus and upon repeat was found be 143/ 100. An EKG was ordered which was unremarkable. Stat CBC and chemistry including a lactic acid ordered. Patient had a mild lactic acid of 2.5. Aside from mild hyponatremia and elevated BNP of greater than 5000, remainder of the labs were unremarkable. Patient continued to improve though he remained slightly tachypnic and breathing was labored with use of accessory muscles. There was concern that the patient may tire out, so respiratory was contacted for possible BiPAP for help with work of breathing. However, after we elevated the head of the bed the patient's respiratory status gradually improved. It was noted that he was having significant orthopnea. A chest x-ray was ordered which looked concerning for worsening vascular congestion. As such, patient was given 80 mg of IV Lasix and a Reyes catheter was placed. Patient was placed on continuous pulse oximetry. He is currently stable. We will continue to monitor on the floor.
[2018-03-27] MEDS: Piperacillin/Tazobactam 3.375 GM in 0.9 % Sodium Chloride Mini Bag 100 ML IVPB SCH ×2 (05:23→16:20)
[2018-03-27] MEDS: Levothyroxine 25 MCG TABLET PO SCH (05:24)
[2018-03-27] MEDS ORDERED: 0.9 % Sodium Chloride 250 ML IVC PRN (07:13)
[2018-03-27 07:24] LABS: Basophils % 0.1 %; Hematocrit 34.1 % (37.5-50.1); Hemoglobin 9.9 g/dL (12.9-16.9); Immature Granulocytes % 0.4 % (0-4); Lymphocytes # 0.4 K/mcL (0.6-4.6); Lymphocytes % 4.7 %; Mean Corpuscular Hemoglobin 31.1 pg (28.0-33.3); Mean Corpuscular Volume 107.2 fL (83.0-100.0); Mean Platelet Volume 9.9 fL (9.4-12.4); Monocytes # 0.4 K/mcL (0.0-1.3); Monocytes % 4.7 %; Nucleated Red Blood Cells 0.3 /100 WBC (0); Platelet Count 202 K/mcL (140-400); Red Blood Count 3.18 M/mcL (4.19-5.50); Red Cell Distribution Width 16.9 % (11.5-14.5); Segmented Neutrophils % 90.1 %
[2018-03-27] MEDS: *HR* Heparin 5,000 UNIT/ML VIAL SQ SCH ×3 (08:00→23:22)
--- NOTE | 2018-03-27 08:14 | Nephrology Consult Note ---
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 Also appears fluid overloaded on exam and chest x-ray. BNP >5000 Patient states that he does continue to make urine at this time, received 80 mg IV push Lasix last night but I's and O's have not been monitored closely Suspect this patient can withstand a significant decrease in volume status Plan -Hemodialysis today with large volume ultrafiltration as possible -We will add IV Lasix 40 mg twice a day -Social work consult for hemodialysis transport -Challenge dry weight, patient may have lost muscle mass due to deconditioning due to chronic illness -Continue to follow (2) Hyponatremia Current Visit: Yes Status: Acute Likely secondary to hypervolemia, does not appear to be chronic Hemodialysis with ultrafiltration as well as IV Lasix Continue to monitor (3) Diarrhea Current Visit: Yes Status: Acute Likely secondary to C. difficile colitis Patient had recent infection which was treated at [facility] Apparently continues to have loose stools, however testing for C. difficile toxin may have limited utility considering time interval between infection Defer to primary team May consider loperamide versus cholestyramine for treatment Qualifiers: Diarrhea type: presumed infectious Qualified Code(s): R19.7 - Diarrhea, unspecified (4) CHF (congestive heart failure) Current Visit: Yes Status: Acute Systolic heart failure with last known EF 40-45% in August 2017 Patient has significant fluid overload as demonstrated on exam and chest x-ray, BNP greater than 5000 We will remove fluid as possible with ultrafiltration and IV Lasix Qualifiers: Heart failure type: combined systolic and diastolic Heart failure chronicity: acute on chronic Qualified Code(s): I50.43 - Acute on chronic combined systolic (congestive) and diastolic (congestive) heart failure (5) Anemia in chronic kidney disease Current Visit: Yes Status: Acute Goal hemoglobin 10-11 Currently stable Qualifiers: Chronic kidney disease stage: on chronic dialysis Qualified Code(s): N18.6 - End stage renal disease; D63.1 - Anemia in chronic kidney disease; Z99.2 - Dependence on renal dialysis History of Present Illness - Reason for Consult Consult date: 03/26/18 end stage renal disease, hyponatremia Requesting physician: Hugo Carlos - Chief Complaint Hyponatremia - History of Present Illness Mr. Bruno is a 52-year-old gentleman with history of CHF, CAD, diabetes, hyperlipidemia, hypertension, thyroid disease and end-stage renal disease on hemodialysis Tuesday who presented to [facility] emergency room for chest pain, shortness of breath and worsening edema for 3-4 days. The patient has unfortunately been in and out of the hospital multiple times in the recent weeks leading up to this event. Most recently, the patient was admitted to the hospital at [facility] for a left BKA, following which she was admitted to SNF and was subsequently discharged about one week ago. Prior to this, the patient was apparently admitted to [facility] for a bout of C. difficile diarrhea that also resulted in some shortness of breath. Apparently at that time, the patient was unable to undergo his entire length of hemodialysis according to his dialysis center. Finally, apparently 2 weeks ago the patient had a right thoracentesis with aspiration of 2 L of bloody fluid. This was not completed at [facility]. The patient presented to the emergency room due to rapidly progressing shortness of breath and orthopnea. He initially had a chest x-ray which demonstrated small left pleural effusions as well as moderate right pleural effusion and possible right lower lobe opacity representing atelectasis versus pneumonia. Further, the patient was found to have a BNP of greater than 5000. He was admitted for presumed hospital-acquired pneumonia, as well as CHF exacerbation. He was treated initially with vancomycin, Levaquin and Zosyn, and did receive some IV fluids in the ED. Overnight, the patient apparently experienced severe worsening of his shortness of breath and a rapid response was called at which time it was noted that his blood pressure had fallen substantially to 69/48. In addition of this, his oxygen saturation had dropped substantially as well. He did receive 80 mg IV push Lasix which was able to sustain him long enough so that he did not require intubation. As of this morning, and at the time of examination the patient does still continue to have some dyspnea and orthopnea. He also mentions that he has some loose stools and his nurse comments that it has been watery in nature. He states this has been continuous since that time that he left the SNF, so much so that he considers the stools to be normal at this time. Over the course of the stay, the patient has been afebrile, and with the exception of the rapid response, the patient's blood pressure has remained relatively stable. Past Med Surg Social Fam HX - Past Medical History Medical history: CHF, coronary artery disease, diabetes, hyperlipidemia, hypertension, kidney stones, renal disease, thyroid disease Additional medical history: neuropathy Psychiatric history: depression - Past Surgical History Surgical History: bariatric surgery, other Additional surgical history: GASTRIC BYPASS. RIGHT UPPER CHEST DIALYSIS CATHETER. LEFT WRIST DIALYSIS FISTULA - Social History Smoking Status: Never smoker Smokeless Tobacco Status: No Alcohol use: none Drug use: none - Family History Father Adopted: No Living Status: Hx Family Cardiac Disorders: Yes Hx Family Respiratory Disorders: Yes Hx Family Cancer: No Hx Family GI Disorders: No Hx Family Endocrine Disorder: No Hx Family Neuromuscular Disorders: No Hx Family Neurologic Disorders: No Hx Family HEENT Disorders: No Hx Family Autoimmune Disorders: No Medications and Allergies HYDROcodone/Acet 5/325 mg [Newton 5-325 mg] 1 tab PO BID PRN 07/21/17 [History] Aspirin [Lo-Dose Aspirin EC] 81 mg PO DAILY 03/26/18 [History] Calcitriol 0.5 mcg PO DAILY 03/26/18 [History] Carvedilol 12.5 mg PO BID 03/26/18 [History] Clopidogrel [Plavix] 75 mg PO DAILY 03/26/18 [History] Cyclobenzaprine [Flexeril] 10 mg PO BID PRN 03/26/18 [History] Ferric Citrate [Auryxia] 420 mg PO TID MDD 8 tablets 03/26/18 [History] Furosemide [Lasix] 40 mg PO BID 03/26/18 [History] Insulin LISPRO [HumaLOG] 5 - 10 unit SQ TIDWM 03/26/18 [History] Isosorbide MONOnitrate (24 HR) [Imdur] 30 mg PO DAILY 03/26/18 [History] L.acidoph,Paracasei, B.lactis [Probiotic] 1 cap PO DAILY 03/26/18 [History] Levothyroxine [Synthroid] 25 mcg PO DAILY 03/26/18 [History] Lisinopril [Zestril] 20 mg PO DAILY 03/26/18 [History] OxyCODONE Immed Rel [Roxicodone 10 MG] 10 mg PO Q6H PRN 03/26/18 [History] Ropinirole HCl [Requip] 4 mg PO HS 03/26/18 [History] Rosuvastatin [Crestor] 40 mg PO HS 03/26/18 [History] Vitamin B Complex [B Complex] 1 each PO DAILY 03/26/18 [History] buPROPion HCl [Zyban] 150 mg PO BID 03/26/18 [History] 3 Allergy/AdvReac Type Severity Reaction Status Date / Time No Known Allergies Allergy Verified 03/26/18 11:14 Review of Systems All Systems review (narrative): Constitutional: Denies fevers, chills, weight loss, generalized fatigue Head/Neck: Denies WANG, neck stiffness EENT: Denies vision changes/blurriness, rhinorrhea, congestion, sore throat CVS: Admits to chest pain, dyspnea on exertion, orthopnea Pulm: Admits to significant shortness of breath GI: Admits to watery stools : Denies dysuria, increased frequency, urgency, hematuria Heme: Denies ease of bleeding or bruising MSK: Denies joint pain, limited ROM Skin: Admits to ulceration of the skin on the left hand, using a plug from dialysis graft Neuro: Denies WANG, paresthesias, focal deficits, ataxia Exam - Vital Signs Vital signs: Initial Vital Signs Temp Pulse Resp BP Pulse Ox 97.7 F 75 16 130/79 100 03/26/18 17:13 03/26/18 17:13 03/26/18 17:13 03/26/18 17:13 03/26/18 17:13 Vital Signs - Last 8 Hours Temp Pulse Resp BP Pulse Ox 03/27/18 07:09 97.8 F 73 18 129/89 98 03/27/18 04:06 97.8 F 76 16 136/84 99 03/27/18 02:42 84 154/101 Intake and Output 03/26/18 03/27/18 03/27/18 23:59 07:59 15:59 Intake Total 1000 / 1000 Balance 1000 / 1000 Intake: IV Fluids 1000 / 1000 0.9 % Sodium Chloride 1,000 ML 500 / 500 @ 999 mls/hr IVC .Q1H1M ONE Rx# :[id number] Levaquin Premix 750mg/150 mL 150 / 150 750 mg In 150 ml @ 100 mls/hr IVPB ONCE ONE Rx#:[id number] Zosyn 3.375 GM In 0.9 % Sodium 100 / 100 Chloride (Mini-Bag +) 100 ML @ 25 mls/hr IVPB Q12HR [facility] Rx#: [id number] Vancocin 1,500 MG In 0.9 % 250 / 250 Sodium Chloride 250 ML @ 166.67 mls/hr IVPB ONCE ONE Rx#: [id number] Other: Stool Size Small Stool Consistency soft Stool Color Black # Voids 1 # Bowel Movements 1 Weight 117.8 kg Blood Glucose* 146 142 - General Appearance Exam: Gen: Vitals noted. Patient appears moderately distressed at hemodialysis HEENT: Normocephalic, atraumatic Neck: Supple. No adenopathy. Cardiac: RRR, no murmur, +S1/S2 Pulmonary: Lung sounds are coarse bilaterally with no rales or rhonchi Abdomen: soft, nontender, no guarding Dialysis access: Left forearm AV fistula with blood oozing. Bruit could not be auscultated due to patient positioning and movement, however thrill is palpable Extremities: Status post left BKA, wound appears to be healing well. Left ulceration of the hyperthenar eminence without apparent necrotic tissue Neuro: moves all extremities, no focal deficits. Results - Lab Results 03/27/18 06:57 03/27/18 01:53 Most recent lab results ABG pH 7.49 pH Units (7.32-7.45) H 03/27/18 01:53 ABG pCO2 35 mmHg (35-45) 03/27/18 01:53 ABG pO2 221 mmHg (85-104) H 03/27/18 01:53 ABG HCO3 26 mEq/L (21-27) 03/27/18 01:53 ABG O2 Saturation 100 % (95-98) H 03/27/18 01:53 Calcium 8.2 mg/dL (8.6-10.3) L 03/27/18 01:53 Consult Discharge Plan - Plan Referrals: Shakira Diaz, [employer]PERATOR [Primary Care Provider] -
[2018-03-27] MEDS: Insulin LISPRO 300 UNITS/3 ML VIAL SQ SCH ×4 (10:20→21:46)
--- NOTE | 2018-03-27 11:02 | Internal Med Progress Note ---
Hospitalist Progress Note - Encounter Date of Encounter: 03/27/18 Time of Encounter: 10:53 - Subjective Interval History: Mr. Bruno is a 52 year old male who has history of end-stage renal disease on hemodialysis Tuesday, diabetes, hypertension and CHF chronic pleural effusion presented to [facility] for chest pain, shortness of breath, and the lower back pain, worsening at edema for 3-4 days. Patient had recent left BKA, was discharged to assisted facility, he will just discharged back home a week ago. He started to develop left-sided chest pain, constant 7 out of 10, sharp,constant worsening with deep breaths for 3 days. He also become very shortness of breath over last 5 days, unable to take deep breaths wake him up at night. He noticed worsening edema from right lower extremity and the abdominal area. He will he complains of lower back pain left buttock cramping, burning constant for few days. In the Camp,chest x-ray shows pneumonia, pulmonary edema, sodium 132 potassium is 3.6 creatinine 6.19 pH 7.14 PCo2 32 WBC 7.3 hemoglobin 10.3 patient had a recent a right-sided thoracentesis 2 weeks ago with 2 L bloody fluids out in [facility]. Patient is going to be admitted for #1 hospital associated pneumonia, Vanco and the Zosyn and levaquin, check urine legionella, strep, # 2 acute on chronic systolic CHF exacerbation with EF 40-45%, on clasix, UF 5 L per nephrology. BNP >5000 # 3 CHEST PAIN, negative 3 trop, likley from pneumonia #4 back pain check XR mshowed severe DJD #5 pelural effusion, had right thoracentesisi with 2 L out 2 weeks ago, contineu lasix and UF through HD #6 fluid over load, imprroving with UF #7 CODE STATUS with patient, he wants to be DNR CCA. #8 Had episode of hypoxia and unresponsiveness last night rapid was call, BG was 135, BP was low, after narcan he work up, will d/c oxycodone, place continueous O2 monitoring - Exam Vitals: Temp Pulse Resp BP Pulse Ox 97.8 F 73 18 129/89 98 03/27/18 07:09 03/27/18 07:09 03/27/18 07:09 03/27/18 07:09 03/27/18 07:09 Exam: CONSTITUTIONAL: Patient appears as an age appropriate male well developed, in no acute distress. EYES Clear sclerae, bilateral pupils are equal, reactive to light and accommodation. Extraocular movements are intact RESPIRATORY: No accessory muscle use, bilateral basilar crackles to auscultation , no wheezing CARDIOVASCULAR: Regular heart rate, normal S1 and S2, no murmurs GASTROINTESTINAL: bowel sounds present, soft, no tenderness. No hepatosplenomegaly. No bilateral CVA tenderness MUSCULOSKELETAL: Joints in normal range of motion, no clubbing, no edema, no cyanosis. Left BKA, right moderate edema LYMPHATIC no lymphadenopathy in neck, groin and axilla bilaterally, no thyromegaly. NEUROLOGIC: CN II to XII are grossly intact, no focal neurological deficit. Deep tendon reflexes 2+ bilaterally. Normal light touch sensation to upper and lower extremity PSYCHIATRIC: Oriented x3, with good insight, mood is euthymic. No hallucinations or delusions. SKIN: Skin warm and dry, no rashes, no open wound. - Assessment and Plan (1) Pneumonia Current Visit: Yes Status: Acute Assessment and Plan: Possible gram-negative bacterial pneumonia due to recent admission, continue vancomycin and the Zosyn, levaquin, pending blood culture, strep and legionella (2) ESRD (end stage renal disease) Current Visit: Yes Status: Chronic Assessment and Plan: Consult a grain scooper patient gets HD on Tuesday , nephrology is on board (3) CHF (congestive heart failure) Current Visit: Yes Status: Acute Assessment and Plan: EF 40-45%, with BNP >5000, frol fluids overload, continue UF, today goal is 5 L out per nephrology contineu lasix, ASA, BB, lisinopril (4) Chest pain Current Visit: Yes Status: Acute Assessment and Plan: resolved, negative trop times 3. (5) Back pain Current Visit: Yes Status: Acute Assessment and Plan: XR showed L-spine DJD (6) Pleural effusion Current Visit: Yes Status: Acute Assessment and Plan: shatnel from CHF, close monitor (7) Chronic respiratory failure with hypoxia Current Visit: Yes Status: Chronic Assessment and Plan: on 2 L NC at home (8) DVT prophylaxis Current Visit: Yes Status: Acute Assessment and Plan: heaprin SC (9) Dyspnea Current Visit: Yes Status: Acute Assessment and Plan: multi-factorial (10) Metabolic acidosis Current Visit: Yes Status: Acute Assessment and Plan: resolved with bicoarb (11) Essential hypertension Current Visit: No Status: Chronic (12) Diabetes mellitus Current Visit: Yes Status: Resolved (13) Pulmonary edema Current Visit: Yes Status: Inactive Assessment and Plan: from acute on chronic Combined systolic and diastolic CHF exacerbation - Time Spent with Patient Total time spent is greater than 50% in coordination of care (as documented) at patient's floor/unit and/or counseling patient: Greater than 35 minutes Internal Medicine: Result - Labs CBC & Chem 7: 03/27/18 06:57 03/27/18 01:53 Labs: Short CBC 03/27/18 03/27/18 Range/Units 02:26 06:57 WBC 8.6 8.9 (4.3-11.1) K/mcL Hgb 10.4 L 9.9 L (12.9-16.9) g/dL Hct 33.8 L 34.1 L (37.5-50.1) % Plt Count 220 202 (140-400) K/mcL Neutrophils # 7.5 8.0 (1.6-8.9) K/mcL BMP 03/27/18 01:53 Sodium 130 L Potassium 4.3 Chloride 94 L Carbon Dioxide 21 L BUN 44 H Creatinine 6.41 H Glucose 137 H Calcium 8.2 L Cardiac Enzymes 03/26/18 03/27/18 03/27/18 Range/Units 19:32 01:53 06:57 Troponin I < 0.03 < 0.03 0.03 (< 0.04) ng/mL Liver Function 03/27/18 Range/Units 01:53 Total Bilirubin 0.5 (0.3-1.0) mg/dL AST 22 (13-39) Units/L ALT 13 (7-52) Units/L Alkaline Phosphatase 182 H (34-104) Units/L Albumin 2.1 L (3.5-5.7) g/dL - ABG Interpretation ABG results: ABG ABG pH 7.49 pH Units (7.32-7.45) H 03/27/18 01:53 ABG pCO2 35 mmHg (35-45) 03/27/18 01:53 ABG pO2 221 mmHg (85-104) H 03/27/18 01:53 ABG O2 Saturation 100 % (95-98) H 03/27/18 01:53 - Impressions Impressions Lumbar Spine X-Ray 03/26/18 18:48 IMPRESSION: No acute bony abnormality. D/ / Tiffanie Barros Cha, MD / Tiffanie Barros Cha, MD Interpreting Provider: Tiffanie Barros Cha, MD Chest X-Ray 03/27/18 02:49 IMPRESSION: Worsening bibasilar atelectasis and/or pneumonia. Loculated right pleural effusion again seen. D/ / Ahmet Chávez MD / Ahmet Chávez MD Interpreting Provider: Ahmet Chávez MD Consult Discharge Plan - Plan Referrals: Shakira Diaz CNP [Primary Care Provider] - (1) Pneumonia Qualifiers: Pneumonia type: due to other aerobic Gram-negative bacteria Laterality: bilateral Lung location: unspecified part of lung Qualified Code(s): J15.6 - Pneumonia due to other Gram-negative bacteria (3) CHF (congestive heart failure) Qualifiers: Heart failure type: combined systolic and diastolic Heart failure chronicity : acute on chronic Qualified Code(s): I50.43 - Acute on chronic combined systolic (congestive) and diastolic (congestive) heart failure (4) Chest pain Qualifiers: Chest pain type: chest pain on breathing Qualified Code(s): R07.1 - Chest pain on breathing; R07.81 - Pleurodynia (5) Back pain Qualifiers: Back pain location: low back pain Chronicity: acute Back pain laterality: left Sciatica presence: without sciatica Qualified Code(s): M54.5 - Low back pain (9) Dyspnea Qualifiers: Dyspnea type: orthopnea Qualified Code(s): R06.01 - Orthopnea (12) Diabetes mellitus Qualifiers: Diabetes mellitus type: type 2 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
[2018-03-27] MEDS ORDERED: 0.9 % Sodium Chloride 2,000 ML ONE (11:08)
[2018-03-27 12:52] LABS: Hepatitis B Surface Antigen Nonreactive (Nonreactive)
[2018-03-27] MEDS: (Ferric Citrate [Auryxia] 420 MG) PO SCH ×3 (14:22→21:16)
[2018-03-27] MEDS: Vitamin B Complex/Vit C/Vit E 1 EACH TABLET PO SCH (15:17)
[2018-03-27] MEDS: BuPROPion SR (12 HR) 150 MG TABLET PO SCH ×2 (15:18→15:46)
[2018-03-27] MEDS: Aspirin Enteric Coated 81 MG Tablet PO SCH (15:18)
[2018-03-27] MEDS: Isosorbide MONOnitrate (24 HR) 30 MG TAB.ER.24H PO SCH (15:25)
[2018-03-27] MEDS: Furosemide 40 MG/4 ML VIAL IVP SCH (15:25)
[2018-03-27] MEDS: Furosemide 40 MG TABLET PO SCH (17:15)
[2018-03-27] MEDS: rOPINIRole 1 MG TABLET PO SCH (21:54)
[2018-03-28 05:08] LABS: Basophils % 0.1 %; Hematocrit 29.3 % (37.5-50.1); Hemoglobin 9.3 g/dL (12.9-16.9); Immature Granulocytes % 0.3 % (0-4); Lymphocytes % 9.7 %; Mean Corpuscular HGB Conc 31.7 g/dL (31.6-35.5); Mean Corpuscular Hemoglobin 32.6 pg (28.0-33.3); Mean Corpuscular Volume 102.8 fL (83.0-100.0); Mean Platelet Volume 9.6 fL (9.4-12.4); Monocytes # 0.8 K/mcL (0.0-1.3); Monocytes % 7.5 %; Neutrophils # 8.4 K/mcL (1.6-8.9); Nucleated Red Blood Cells 0.3 /100 WBC (0); Platelet Count 191 K/mcL (140-400); Red Blood Count 2.85 M/mcL (4.19-5.50); Red Cell Distribution Width 16.8 % (11.5-14.5); Segmented Neutrophils % 82.4 %
[2018-03-28] MEDS: Levothyroxine 25 MCG TABLET PO SCH (05:31)
[2018-03-28] MEDS: Piperacillin/Tazobactam 3.375 GM in 0.9 % Sodium Chloride Mini Bag 100 ML IVPB SCH ×2 (05:31→16:34)
[2018-03-28 05:33] LABS: Calcium 8.6 mg/dL (8.6-10.3); Potassium 4.5 mEq/L (3.5-5.1)
[2018-03-28] MEDS ORDERED: 0.9 % Sodium Chloride 250 ML IVC PRN (06:28)
[2018-03-28] MEDS: Insulin LISPRO 300 UNITS/3 ML VIAL SQ SCH ×4 (07:56→22:33)
[2018-03-28] MEDS: BuPROPion SR (12 HR) 150 MG TABLET PO SCH ×2 (07:57→20:41)
[2018-03-28] MEDS: *HR* Heparin 5,000 UNIT/ML VIAL SQ SCH ×3 (07:57→23:14)
[2018-03-28] MEDS: Aspirin Enteric Coated 81 MG Tablet PO SCH (07:57)
[2018-03-28] MEDS: Furosemide 40 MG/4 ML VIAL IVP SCH ×2 (07:57→16:33)
[2018-03-28] MEDS: Vitamin B Complex/Vit C/Vit E 1 EACH TABLET PO SCH (07:57)
[2018-03-28] MEDS: (Ferric Citrate [Auryxia] 420 MG) PO SCH (07:58)
--- NOTE | 2018-03-28 08:52 | Nephrology Progress Note ---
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 Also appears fluid overloaded on exam and chest x-ray. BNP >5000 Was able to tolerate removal of 5600mL fluid with UF yesterday during HD, BP remained relatively stable. Received 40IV lasix which did not produce good urine output Plan -Hemodialysis today with large volume ultrafiltration as possible, likely attempt large volume UF tomorrow as well -We will add IV Lasix 40 mg twice a day -Social work consult for hemodialysis transport -Challenge dry weight, patient may have lost muscle mass due to deconditioning due to chronic illness -Continue to follow (2) Hyponatremia Current Visit: Yes Status: Acute Likely secondary to hypervolemia, does not appear to be chronic Hemodialysis with ultrafiltration as well as IV Lasix Continue to monitor (3) Diarrhea Current Visit: Yes Status: Acute Likely secondary to C. difficile colitis Patient had recent infection which was treated at [facility] Apparently continues to have loose stools, however testing for C. difficile toxin may have limited utility considering time interval between infection Defer to primary team May consider loperamide versus cholestyramine for treatment Qualifiers: Qualified Code(s): R19.7 - Diarrhea, unspecified (4) CHF (congestive heart failure) Current Visit: Yes Status: Acute Systolic heart failure with last known EF 40-45% in August 2017 Patient has significant fluid overload as demonstrated on exam and chest x-ray, BNP greater than 5000 We will remove fluid as possible with ultrafiltration and IV Lasix Qualifiers: Qualified Code(s): I50.43 - Acute on chronic combined systolic (congestive) and diastolic (congestive) heart failure (5) Anemia in chronic kidney disease Current Visit: Yes Status: Acute Goal hemoglobin 10-11 Currently stable Qualifiers: Qualified Code(s): N18.6 - End stage renal disease; D63.1 - Anemia in chronic kidney disease; Z99.2 - Dependence on renal dialysis Subjective Principal diagnosis: ESRD Interval history: The patient is resting comfortably in bed at time of examination. He has no acute complaints at this time. He does continue to have some loose stools, but is overall feeling improved from previous. Objective - Vital Signs Vital signs: Vital Signs Temp Pulse Resp BP Pulse Ox 03/28/18 07:38 97.4 F L 77 18 146/97 100 03/28/18 03:52 98.2 F 75 18 134/82 100 03/27/18 23:39 97.6 F 71 16 130/89 99 03/27/18 22:00 98 03/27/18 19:09 81 16 137/89 98 03/27/18 16:42 97.7 F 75 18 127/86 94 03/27/18 13:30 97.5 F L 20 175/107 03/27/18 13:15 165/119 03/27/18 13:00 168/109 03/27/18 12:45 163/87 03/27/18 12:30 172/94 03/27/18 12:26 172/94 03/27/18 12:15 159/89 03/27/18 12:00 155/97 03/27/18 11:45 157/105 03/27/18 11:30 139/85 03/27/18 11:15 132/80 03/27/18 11:00 122/77 03/27/18 10:45 120/86 03/27/18 10:30 128/90 03/27/18 10:15 149/60 03/27/18 10:00 149/104 03/27/18 09:45 137/82 03/27/18 09:30 149/110 03/27/18 09:15 149/90 03/27/18 09:00 154/113 Intake and Output 03/27/18 03/28/18 03/28/18 23:59 07:59 15:59 Intake Total 100 / 100 240 / 240 Output Total 50 / 50 Balance 50 / 50 240 / 240 Intake: IV Fluids 100 / 100 Zosyn 3.375 GM In 0.9 % Sodium 100 / 100 Chloride (Mini-Bag +) 100 ML @ 25 mls/hr IVPB Q12HR [facility] Rx#: [id number] Oral 240 / 240 Output: Catheter 50 / 50 Other: Meal Breakfast Percent of Meal Consumed 70% Weight 114.1 kg Blood Glucose* 105 75 - General Appearance Exam: Gen: Vitals noted. Patient appears moderately distressed at hemodialysis HEENT: Normocephalic, atraumatic Neck: Supple. No adenopathy. Cardiac: RRR, no murmur, +S1/S2 Pulmonary: Lung sounds are coarse bilaterally with no rales or rhonchi Abdomen: soft, nontender, no guarding Dialysis access: Left forearm AV fistula which is clean and currently in use. thrill is palpable Extremities: Status post left BKA, wound appears to be healing well. Left ulceration of the hypothenar eminence without apparent necrotic tissue Neuro: moves all extremities, no focal deficits. - Lab 03/28/18 04:52 03/28/18 04:52 Most recent lab results ABG pH 7.49 pH Units (7.32-7.45) H 03/27/18 01:53 ABG pCO2 35 mmHg (35-45) 03/27/18 01:53 ABG pO2 221 mmHg (85-104) H 03/27/18 01:53 ABG HCO3 26 mEq/L (21-27) 03/27/18 01:53 ABG O2 Saturation 100 % (95-98) H 03/27/18 01:53 Calcium 8.6 mg/dL (8.6-10.3) 03/28/18 04:52 Consult Discharge Plan - Plan Referrals: Shakira Diaz CNP [Primary Care Provider] -
[2018-03-28] MEDS: *HR* HYDROcodone/Acet 5/325 mg TABLET PO PRN ×2 (09:25→16:33)
[2018-03-28] MEDS ORDERED: 0.9 % Sodium Chloride 2,000 ML ONE (10:41)
--- NOTE | 2018-03-28 12:54 | Internal Med Progress Note ---
Hospitalist Progress Note - Encounter Date of Encounter: 03/28/18 Time of Encounter: 11:30 - Subjective Interval History: Patient seen and examined this morning. HD today. Feeling better. More alert per nurse. - Exam Vitals: Temp Pulse Resp BP Pulse Ox 97.5 F L 77 18 150/112 100 03/28/18 08:35 03/28/18 07:38 03/28/18 08:35 03/28/18 10:20 03/28/18 07:38 Exam: CONSTITUTIONAL: Patient appears as an age appropriate male well developed, in no acute distress. EYES Clear sclerae, bilateral pupils are equal, reactive to light and accommodation. Extraocular movements are intact RESPIRATORY: No accessory muscle use, bilateral basilar crackles to auscultation , no wheezing CARDIOVASCULAR: Regular heart rate, normal S1 and S2, no murmurs GASTROINTESTINAL: bowel sounds present, soft, no tenderness. No hepatosplenomegaly. No bilateral CVA tenderness MUSCULOSKELETAL: Joints in normal range of motion, no clubbing, no edema, no cyanosis. Left BKA, right moderate edema NEUROLOGIC: CN II to XII are grossly intact, no focal neurological deficit. Deep tendon reflexes 2+ bilaterally. Normal light touch sensation to upper and lower extremity PSYCHIATRIC: Oriented x3, with good insight, mood is euthymic. No hallucinations or delusions. SKIN: Skin warm and dry, no rashes, no open wound. - Summary of Assessment and Plan Summary of Assessment and Plan: Pneumonia - Possible gram-negative bacterial pneumonia due to recent admission - continue vancomycin and the Zosyn. Will dc levaquin as patient not critically ill- no double pseudomonas coverage needed. pending blood culture, strep and legionella ag. 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 - c/w diuresis and ultrafiltration. 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 - continue Lasix, ASA, BB, lisinopril and Diarrhea - Likely secondary to C. difficile colitis. - Recent Cdiff treated at [facility] - Improving. Will consider loperamide for symtomatic relief. Pleural effusion - Recent 2L bloody peural fluid taken out at [facility]. - Repeat CT with Loculated effusion. Will Obtain CT surgeon consult. Chest pain - resolved, negative trop times 3. Back pain - XR showed L-spine DJD. No acute pathology noticed. Chronic respiratory failure with hypoxia - c/w 2 L NC at home Anemia - Macrocystic. Likely related to ESRD. Dyspnea - multi-factorial addressed as above Essential hypertension - c/w lisinopril Diabetes mellitus - SSI DVT prophylaxis - heaprin SC - Time Spent with Patient Total time spent is greater than 50% in coordination of care (as documented) at patient's floor/unit and/or counseling patient: Internal Medicine: Result - Labs CBC & Chem 7: 03/28/18 04:52 03/28/18 04:52 Labs: Short CBC 03/28/18 Range/Units 04:52 WBC 10.2 (4.3-11.1) K/mcL Hgb 9.3 L (12.9-16.9) g/dL Hct 29.3 L (37.5-50.1) % Plt Count 191 (140-400) K/mcL Neutrophils # 8.4 (1.6-8.9) K/mcL BMP 03/28/18 04:52 Sodium 134 L Potassium 4.5 Chloride 96 L Carbon Dioxide 25 BUN 33 H Creatinine 5.09 H Glucose 81 Calcium 8.6 - ABG Interpretation ABG results: ABG ABG pH 7.49 pH Units (7.32-7.45) H 03/27/18 01:53 ABG pCO2 35 mmHg (35-45) 03/27/18 01:53 ABG pO2 221 mmHg (85-104) H 03/27/18 01:53 ABG O2 Saturation 100 % (95-98) H 03/27/18 01:53 Consult Discharge Plan - Plan Referrals: Shakira Diaz, ASSISTANT TODDLER TEACHER [Primary Care Provider] -
[2018-03-28] MEDS: Isosorbide MONOnitrate (24 HR) 30 MG TAB.ER.24H PO SCH (14:40)
[2018-03-28] MEDS ORDERED: Levofloxacin 500 MG/100 ML 500 MG/100 ML BAG IVPB SCH (19:00)
[2018-03-28] MEDS: rOPINIRole 1 MG TABLET PO SCH (20:41)
[2018-03-29] MEDS: Piperacillin/Tazobactam 3.375 GM in 0.9 % Sodium Chloride Mini Bag 100 ML IVPB SCH ×2 (06:30→17:55)
[2018-03-29] MEDS: Levothyroxine 25 MCG TABLET PO SCH (06:30)
[2018-03-29 06:42] LABS: Hematocrit 27.9 % (37.5-50.1); Hemoglobin 8.7 g/dL (12.9-16.9); Mean Corpuscular HGB Conc 31.2 g/dL (31.6-35.5); Mean Corpuscular Hemoglobin 32.2 pg (28.0-33.3); Mean Corpuscular Volume 103.3 fL (83.0-100.0); Mean Platelet Volume 9.8 fL (9.4-12.4); Platelet Count 142 K/mcL (140-400); Red Cell Distribution Width 17.1 % (11.5-14.5)
--- NOTE | 2018-03-29 07:08 | Cardiothoracic Consult Note ---
Date of Encounter: 03/29/18 Time of Encounter: 07:02 Assessment and Plan (1) Pleural effusion Current Visit: Yes Status: Acute The patient is a 52-year-old type II diabetic, hypertensive, moderately obese man with known CAD, PAD, and end-stage renal disease requiring hemodialysis. He presents to [facility] emergency department from dialysis with complaints of dyspnea and orthopnea. A chest x-ray shows a loculated right pleural effusion. Ideally, the patient should undergo right thoracotomy and decortication; however, given the patient's current poor health with multiple medical comorbidities and a recent left BKA, he is not a suitable operative candidate. An attempt could be made to place a small chest tube in interventional radiology with TPA therapy to help dissolve the loculated hemothorax, but I do not believe that this will be successful. If the patient' s medical condition improves, he may be a candidate for more invasive intervention. The assessment and plan as outlined above was discussed with the patient and/or family members who expressed understanding and agreement. All questions were answered. - History of Present Illness Consult date: 03/28/18 Requesting physician: Reji Glass Consult reason: Loculated right pleural effusion Chief complaint: Shortness of breath, dyspnea on exertion History of present illness: Mr. Bruno is a 52 year old type II diabetic, hypertensive, moderately obese man with known CAD, hypercholesterolemia, and end-stage renal disease requiring hemodialysis. The patient easily developed a left foot infection which required a left BKA at the [facility]. During this hospitalization the patient was found to have bilateral pleural effusions with the right pleural effusion being significantly larger than the left pleural effusion. The patient underwent right chest tube insertion with drainage approximately 2 L of bloody fluid. The patient receives hemodialysis on Tuesday , Tuesday, and Tuesday, and during his last dialysis session complained of dyspnea and orthopnea. He was evaluated at [facility] emergency department and found to have congestive heart failure. His initial BNP was greater than 5000. A chest x-ray showed a loculated right pleural effusion. I have been asked to evaluate the patient for treatment recommendations. Past Med Surg Social Fam HX - Past Medical History Medical history: cardiomyopathy, CHF, coronary artery disease, diabetes (Type II ), hyperlipidemia, hypertension, kidney stones, peripheral artery disease, renal disease (Stage IV), thyroid disease, other (Diabetic neuropathy) Additional medical history: neuropathy Psychiatric history: depression - Past Surgical History Surgical History: bariatric surgery, other (Left BKA, left upper extremity AVF, right subclavian vein dialysis catheter) Additional surgical history: GASTRIC BYPASS. RIGHT UPPER CHEST DIALYSIS CATHETER. LEFT WRIST DIALYSIS FISTULA - Social History Smoking Status: Never smoker Smokeless Tobacco Status: No Alcohol use: none Drug use: none Current living situation: Home - Independent Activity Level: Mostly sedentary Recent Out of Country Travel Within the Last 8 Weeks: No Exposure or Possible Exposure to Illness During Travel: No - Family History Father Adopted: No Living Status: Hx Family Cardiac Disorders: Yes Hx Family Respiratory Disorders: Yes Hx Family Cancer: No Hx Family GI Disorders: No Hx Family Endocrine Disorder: No Hx Family Neuromuscular Disorders: No Hx Family Neurologic Disorders: No Hx Family HEENT Disorders: No Hx Family Autoimmune Disorders: No Medications and Allergies HYDROcodone/Acet 5/325 mg [[place]ooppole 5-325 mg] 1 tab PO BID PRN 07/21/17 [History] Aspirin [Lo-Dose Aspirin EC] 81 mg PO DAILY 03/26/18 [History] Calcitriol 0.5 mcg PO DAILY 03/26/18 [History] Carvedilol 12.5 mg PO BID 03/26/18 [History] Clopidogrel [Plavix] 75 mg PO DAILY 03/26/18 [History] Cyclobenzaprine [Flexeril] 10 mg PO BID PRN 03/26/18 [History] Ferric Citrate [Auryxia] 420 mg PO TID MDD 8 tablets 03/26/18 [History] Furosemide [Lasix] 40 mg PO BID 03/26/18 [History] Insulin LISPRO [HumaLOG] 5 - 10 unit SQ TIDWM 03/26/18 [History] Isosorbide MONOnitrate (24 HR) [Imdur] 30 mg PO DAILY 03/26/18 [History] L.acidoph,Paracasei, B.lactis [Probiotic] 1 cap PO DAILY 03/26/18 [History] Levothyroxine [Synthroid] 25 mcg PO DAILY 03/26/18 [History] Lisinopril [Zestril] 20 mg PO DAILY 03/26/18 [History] OxyCODONE Immed Rel [Roxicodone 10 MG] 10 mg PO Q6H PRN 03/26/18 [History] Ropinirole HCl [Requip] 4 mg PO HS 03/26/18 [History] Rosuvastatin [Crestor] 40 mg PO HS 03/26/18 [History] Vitamin B Complex [B Complex] 1 each PO DAILY 03/26/18 [History] buPROPion HCl [Zyban] 150 mg PO BID 03/26/18 [History] 3 Allergy/AdvReac Type Severity Reaction Status Date / Time No Known Allergies Allergy Verified 03/26/18 11:14 All Systems Review: The remainder of the systems were reviewed and are negative Physical Examination Vital Signs, Last 4 Hours Temp Pulse Resp BP Pulse Ox 03/29/18 04:21 97.9 F 74 17 123/80 90 General: Conversant, No Apparent Distress HEENT: Atraumatic, Normocephaly, Trachea midline Neck: No JVD, Normal carotid pulses Cardiac: Reg Rate and Rhythm, Normal S1 and S2, No Murmur Lungs: Decreased breath sounds (Right lung hallman) Neuro: Alert and responsive, No focal deficits noted Vascular: Normal capillary refill Abdomen: Soft, Non-tender Musculoskeletal: No Chest Wall Tenderness Extremities: No Clubbing, No Cyanosis, Other (Left BKA, right lower extremity 2 + pitting edema) Results 03/29/18 06:14 03/28/18 04:52 Lab Results, Last 24 hours 03/29/18 06:14 WBC 8.9 Hgb 8.7 L Hct 27.9 L Plt Count 142 - Imaging Chest Xray: image reviewed (Cardiomegaly. Increased bibasilar atelectasis. loculated right pleural effusion) Consult Discharge Plan - Plan Referrals: Shakira Diaz CNP [Primary Care Provider] -
[2018-03-29 07:56] LABS: Calcium 8.2 mg/dL (8.6-10.3); Potassium 4.3 mEq/L (3.5-5.1)
--- NOTE | 2018-03-29 08:15 | Nephrology Progress Note ---
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 Also appears fluid overloaded on exam and chest x-ray. BNP >5000 Patient has undergone arge volume removal via UF over the past two days and has consequently had a decent drop in weight. He is approaching supposed dry weight , however we will continue to challenge dry weight as he appears to still benefit from fluid removal. Plan -Standard Hemodialysis today per MWF schedule. Attempt 4500mL removal -Continue IV Lasix 40mg BID. Patient's UOP remains negligible -Social work consult for hemodialysis transport -Challenge dry weight, patient may have lost muscle mass due to deconditioning due to chronic illness -Continue to follow (2) Hyponatremia Current Visit: Yes Status: Acute Likely secondary to hypervolemia, does not appear to be chronic. This has largely resolved over the course of this admission, sodium now 134 Hemodialysis with ultrafiltration as well as IV Lasix Continue to monitor (3) Diarrhea Current Visit: Yes Status: Acute Likely secondary to C. difficile colitis Patient had recent infection which was treated at [facility] Apparently continues to have loose stools, however testing for C. difficile toxin may have limited utility considering time interval between infection May consider loperamide versus cholestyramine for treatment Defer to primary team Qualifiers: Diarrhea type: presumed infectious Qualified Code(s): R19.7 - Diarrhea, unspecified (4) CHF (congestive heart failure) Current Visit: Yes Status: Acute Systolic heart failure with last known EF 40-45% in August 2017 Patient has significant fluid overload as demonstrated on exam and chest x-ray, BNP greater than 5000 We will remove fluid as possible with ultrafiltration and IV Lasix Qualifiers: Heart failure type: combined systolic and diastolic Heart failure chronicity: acute on chronic Qualified Code(s): I50.43 - Acute on chronic combined systolic (congestive) and diastolic (congestive) heart failure (5) Pleural effusion Current Visit: Yes Status: Acute Loculated right pleural effusion Management per CT Surgery (6) Anemia in chronic kidney disease Current Visit: Yes Status: Acute Goal hemoglobin 10-11 Currently stable Qualifiers: Chronic kidney disease stage: on chronic dialysis Qualified Code(s): N18.6 - End stage renal disease; D63.1 - Anemia in chronic kidney disease; Z99.2 - Dependence on renal dialysis Subjective Principal diagnosis: ESRD Interval history: The patient is resting comfortably in bed at time of examination. He has no acute complaints at this time. He does continue to have some loose stools, but is overall feeling improved from previous. Objective - Vital Signs Vital signs: Vital Signs Temp Pulse Resp BP Pulse Ox 03/29/18 07:56 98.1 F 73 16 127/85 100 03/29/18 04:21 97.9 F 74 17 123/80 90 03/28/18 23:49 97.9 F 72 17 125/88 100 03/28/18 21:05 98 03/28/18 19:17 98.4 F 75 16 125/80 98 03/28/18 16:18 98.6 F 79 16 122/85 100 03/28/18 12:20 97.9 F 20 158/108 03/28/18 12:05 159/112 03/28/18 11:50 152/115 03/28/18 11:35 121/90 03/28/18 11:20 109/87 03/28/18 11:05 99/65 03/28/18 10:50 91/71 03/28/18 10:35 153/111 03/28/18 10:20 150/112 03/28/18 10:05 148/102 03/28/18 09:50 133/97 03/28/18 09:35 133/91 03/28/18 09:20 133/98 03/28/18 09:05 147/103 03/28/18 08:50 135/51 03/28/18 08:35 97.5 F L 18 134/106 Intake and Output 03/28/18 03/29/18 03/29/18 23:59 07:59 15:59 Intake Total 220 / 220 Balance 220 / 220 Intake: IV Fluids 100 / 100 Zosyn 3.375 GM In 0.9 % Sodium 100 / 100 Chloride (Mini-Bag +) 100 ML @ 25 mls/hr IVPB Q12HR [facility] Rx#: [id number] Oral 120 / 120 Other: Meal Dinner Percent of Meal Consumed 10% Stool Size Moderate Stool Consistency liquid soft Stool Characteristics Normal for Patient Stool Color Brown # Bowel Movements 1 Weight 113 kg Blood Glucose* 131 65 Patient Weight 03/29/18 23:59 Weight 113 kg - General Appearance Exam: Gen: Vitals noted. Patient appears moderately distressed at hemodialysis HEENT: Normocephalic, atraumatic Neck: Supple. No adenopathy. Cardiac: RRR, no murmur, +S1/S2 Pulmonary: Lung sounds are coarse bilaterally with no rales or rhonchi Abdomen: soft, nontender, no guarding Dialysis access: Left forearm AV fistula which is clean and currently in use. thrill is palpable Extremities: Status post left BKA, wound appears to be healing well. Left ulceration of the hypothenar eminence without apparent necrotic tissue Neuro: moves all extremities, no focal deficits. - Lab 03/29/18 06:14 03/29/18 06:14 Most recent lab results ABG pH 7.49 pH Units (7.32-7.45) H 03/27/18 01:53 ABG pCO2 35 mmHg (35-45) 03/27/18 01:53 ABG pO2 221 mmHg (85-104) H 03/27/18 01:53 ABG HCO3 26 mEq/L (21-27) 03/27/18 01:53 ABG O2 Saturation 100 % (95-98) H 03/27/18 01:53 Calcium 8.2 mg/dL (8.6-10.3) L 03/29/18 06:14 Consult Discharge Plan - Plan Referrals: Shakira Diaz, RESTAURANT BUSSER [Primary Care Provider] -
[2018-03-29] MEDS: Insulin LISPRO 300 UNITS/3 ML VIAL SQ SCH ×4 (09:14→20:55)
[2018-03-29] MEDS ORDERED: 0.9 % Sodium Chloride 250 ML IVC PRN (09:21)
[2018-03-29] MEDS ORDERED: 0.9 % Sodium Chloride 1,000 ML PRIME SCH (09:30)
[2018-03-29] MEDS: BuPROPion SR (12 HR) 150 MG TABLET PO SCH ×2 (09:47→21:19)
[2018-03-29] MEDS: Aspirin Enteric Coated 81 MG Tablet PO SCH (09:47)
[2018-03-29] MEDS: Isosorbide MONOnitrate (24 HR) 30 MG TAB.ER.24H PO SCH (09:48)
[2018-03-29] MEDS: Vitamin B Complex/Vit C/Vit E 1 EACH TABLET PO SCH (09:49)
[2018-03-29] MEDS: *HR* Heparin 5,000 UNIT/ML VIAL SQ SCH ×3 (09:49→23:27)
--- NOTE | 2018-03-29 12:00 | Internal Med Progress Note ---
Hospitalist Progress Note - Encounter Date of Encounter: 03/29/18 Time of Encounter: 11:16 - Subjective Interval History: Patient seen and examined this morning. HD today. Edema improved. Breathing improved. - Exam Vitals: Temp Pulse Resp BP Pulse Ox 97.5 F L 66 15 124/80 100 03/29/18 11:29 03/29/18 11:29 03/29/18 11:29 03/29/18 11:29 03/29/18 11:29 Exam: CONSTITUTIONAL: Patient appears as an age appropriate male well developed, in no acute distress. EYES Clear sclerae, bilateral pupils are equal, reactive to light and accommodation. Extraocular movements are intact RESPIRATORY: No accessory muscle use, bilateral basilar crackles to auscultation , no wheezing CARDIOVASCULAR: Regular heart rate, normal S1 and S2, no murmurs GASTROINTESTINAL: bowel sounds present, soft, no tenderness. No hepatosplenomegaly. No bilateral CVA tenderness MUSCULOSKELETAL: Joints in normal range of motion, no clubbing, no edema, no cyanosis. Left BKA, right moderate edema decreased NEUROLOGIC: CN II to XII are grossly intact, no focal neurological deficit. Deep tendon reflexes 2+ bilaterally. Normal light touch sensation to upper and lower extremity PSYCHIATRIC: Oriented x3, with good insight, mood is euthymic. No hallucinations or delusions. SKIN: Skin warm and dry, no rashes, no open wound. - Summary of Assessment and Plan Summary of Assessment and Plan: Pneumonia - Possible gram-negative bacterial pneumonia due to recent admission - continue vancomycin and the Zosyn. levaquin stopped as patient not critically ill- no double pseudomonas coverage needed. blood culture NGTD. No urine sample could be obtained for strep and legionella ag. - Clinically improved. 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 - c/w diuresis and ultrafiltration. 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 Was being evaluated outpatient for surgical evaluation. - continue Lasix, ASA, BB, lisinopril and continue HD. Off plavix per cardiology note from [facility]. - Was discharge on aldactone from [facility]. Will discuss with Nephrology - Was discharged from [facility] with lifevest. Will dicuss lifevest with patient. Diarrhea - Likely secondary to C. difficile colitis. - Recent Cdiff treated at [facility] - Improving. Will consider loperamide for symtomatic relief. Pleural effusion - Recent 2L bloody peural fluid taken out at [facility]. - Repeat CT with Loculated effusion. - CT surgeon consulted. Recommended may be addressed surgically once stable. IR with tPA may not be successful. Chest pain - resolved, negative trop times 3. Back pain - XR showed L-spine DJD. No acute pathology noticed. Chronic respiratory failure with hypoxia - c/w 2 L NC at home Anemia - Macrocystic. Likely related to ESRD. Dyspnea - multi-factorial addressed as above Essential hypertension - c/w lisinopril Diabetes mellitus - SSI DVT prophylaxis - heaprin SC - Time Spent with Patient Total time spent is greater than 50% in coordination of care (as documented) at patient's floor/unit and/or counseling patient: Internal Medicine: Result - Labs CBC & Chem 7: 03/29/18 06:14 03/29/18 06:14 Labs: Short CBC 03/29/18 Range/Units 06:14 WBC 8.9 (4.3-11.1) K/mcL Hgb 8.7 L (12.9-16.9) g/dL Hct 27.9 L (37.5-50.1) % Plt Count 142 (140-400) K/mcL BMP 03/29/18 06:14 Sodium 134 L Potassium 4.3 Chloride 97 L Carbon Dioxide 23 BUN 38 H Creatinine 5.95 H Glucose 71 Calcium 8.2 L - ABG Interpretation ABG results: ABG ABG pH 7.49 pH Units (7.32-7.45) H 03/27/18 01:53 ABG pCO2 35 mmHg (35-45) 03/27/18 01:53 ABG pO2 221 mmHg (85-104) H 03/27/18 01:53 ABG O2 Saturation 100 % (95-98) H 03/27/18 01:53 Consult Discharge Plan - Plan Referrals: Shakira Diaz, BI MANAGER [Primary Care Provider] -
[2018-03-29] MEDS ORDERED: 0.9 % Sodium Chloride 1,000 ML ONE (12:57)
[2018-03-29] MEDS ORDERED: Vancomycin 500 MG in 0.9 % Sodium Chloride Mini Bag 100 ML IVPB ONE (16:00)
[2018-03-29] MEDS: *HR* HYDROcodone/Acet 5/325 mg TABLET PO PRN (16:15)
[2018-03-29] MEDS: Furosemide 40 MG/4 ML VIAL IVP SCH ×2 (16:18)
[2018-03-29] MEDS: rOPINIRole 1 MG TABLET PO SCH (21:19)
--- NOTE | 2018-03-29 22:55 | Electrocardiograph Report ---
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
[2018-03-30] MEDS: Piperacillin/Tazobactam 3.375 GM in 0.9 % Sodium Chloride Mini Bag 100 ML IVPB SCH ×2 (05:01→16:49)
[2018-03-30] MEDS: Levothyroxine 25 MCG TABLET PO SCH (05:01)
[2018-03-30 05:05] LABS: Hematocrit 27.2 % (37.5-50.1); Hemoglobin 8.2 g/dL (12.9-16.9); Mean Corpuscular HGB Conc 30.1 g/dL (31.6-35.5); Mean Corpuscular Hemoglobin 31.1 pg (28.0-33.3); Mean Platelet Volume 9.9 fL (9.4-12.4); Platelet Count 125 K/mcL (140-400); Red Blood Count 2.64 M/mcL (4.19-5.50); Red Cell Distribution Width 17.3 % (11.5-14.5)
[2018-03-30] MEDS: Insulin LISPRO 300 UNITS/3 ML VIAL SQ SCH ×4 (07:43→20:03)
[2018-03-30] MEDS: Vitamin B Complex/Vit C/Vit E 1 EACH TABLET PO SCH (08:18)
[2018-03-30] MEDS: *HR* Heparin 5,000 UNIT/ML VIAL SQ SCH ×2 (08:18→16:09)
[2018-03-30] MEDS: Isosorbide MONOnitrate (24 HR) 30 MG TAB.ER.24H PO SCH (08:18)
[2018-03-30] MEDS: Aspirin Enteric Coated 81 MG Tablet PO SCH (08:18)
[2018-03-30] MEDS: Furosemide 40 MG/4 ML VIAL IVP SCH ×2 (08:18→16:50)
[2018-03-30] MEDS: BuPROPion SR (12 HR) 150 MG TABLET PO SCH ×2 (08:18→20:03)
[2018-03-30] MEDS: *HR* HYDROcodone/Acet 5/325 mg TABLET PO PRN (08:34)
[2018-03-30 09:51] LABS: Calcium 8.5 mg/dL (8.6-10.3)
--- NOTE | 2018-03-30 10:56 | Internal Med Progress Note ---
Hospitalist Progress Note - Encounter Date of Encounter: 03/30/18 Time of Encounter: 10:54 - Subjective Interval History: Patient seen and examined this morning. HD yesterday with 4 lit UF. Edema and Breathing improving. Had Fall overnight and was more altered per nurses and this morning. - Exam Vitals: Temp Pulse Resp BP Pulse Ox 97.9 F 81 17 127/77 93 03/30/18 07:31 03/30/18 07:31 03/30/18 07:31 03/30/18 07:31 03/30/18 07:31 Exam: CONSTITUTIONAL: Patient appears as an age appropriate male well developed, in no acute distress. On and off confused EYES Clear sclerae, bilateral pupils are equal, reactive to light and accommodation. Extraocular movements are intact RESPIRATORY: No accessory muscle use, bilateral basilar crackles to auscultation , no wheezing. Decreased air entry on Rt. CARDIOVASCULAR: Regular heart rate, normal S1 and S2, no murmurs GASTROINTESTINAL: bowel sounds present, soft, no tenderness. No hepatosplenomegaly. No bilateral CVA tenderness MUSCULOSKELETAL: Joints in normal range of motion, no clubbing, no edema, no cyanosis. Left BKA, right moderate edema decreased NEUROLOGIC: CN II to XII are grossly intact, no focal neurological deficit. Deep tendon reflexes 2+ bilaterally. PSYCHIATRIC: Oriented x3, with good insight, mood is euthymic. No hallucinations or delusions. SKIN: Skin warm and dry. Had fall with some bruise on Lt hand. - Summary of Assessment and Plan Summary of Assessment and Plan: Pneumonia - Possible gram-negative bacterial pneumonia due to recent admission. - continue vancomycin and the Zosyn. levaquin stopped as patient not critically ill- no double pseudomonas coverage needed. blood culture NGTD. No urine sample could be obtained for strep and legionella ag. - ID consulted for further recommendation. Repeat f/u CT. 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 - c/w diuresis and ultrafiltration. - f/u Repeat CT. 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 Was being evaluated outpatient for surgical evaluation. - continue Lasix, ASA, BB, lisinopril and continue HD. Off plavix per cardiology note from [facility]. - Was discharge on aldactone from [facility]. Will discuss with Nephrology - Was discharged from [facility] with lifevest. Ask family to bring lifevest. Diarrhea - Likely secondary to C. difficile colitis. - Recent Cdiff treated at [facility] - Improving. Will consider loperamide for symtomatic relief. Pleural effusion - Recent 2L bloody pleural fluid taken out at [facility]. - Repeat CT with Loculated effusion. - CT surgeon consulted. Recommended IR with tPA may not be successful. Currently not stable for intervention. Chest pain - resolved, negative trop times 3. Back pain - XR showed L-spine DJD. No acute pathology noticed. Chronic respiratory failure with hypoxia - c/w 2 L NC at home Anemia - Macrocystic. Likely related to ESRD. - Currently at baseline. No active bleeding. Monitor for now. Dyspnea - multi-factorial addressed as above Essential hypertension - c/w lisinopril Diabetes mellitus - SSI DVT prophylaxis - heaprin SC - Time Spent with Patient Total time spent is greater than 50% in coordination of care (as documented) at patient's floor/unit and/or counseling patient: Internal Medicine: Result - Labs CBC & Chem 7: 03/30/18 04:51 03/30/18 04:51 Labs: Short CBC 03/30/18 Range/Units 04:51 WBC 7.7 (4.3-11.1) K/mcL Hgb 8.2 L (12.9-16.9) g/dL Hct 27.2 L (37.5-50.1) % Plt Count 125 L (140-400) K/mcL BMP 03/30/18 04:51 Sodium 136 Potassium 4.0 Chloride 96 L Carbon Dioxide 29 BUN 25 H Creatinine 4.63 H Glucose 62 L Calcium 8.5 L - ABG Interpretation ABG results: ABG ABG pH 7.49 pH Units (7.32-7.45) H 03/27/18 01:53 ABG pCO2 35 mmHg (35-45) 03/27/18 01:53 ABG pO2 221 mmHg (85-104) H 03/27/18 01:53 ABG O2 Saturation 100 % (95-98) H 03/27/18 01:53 - Impressions Impressions Head CT 03/30/18 02:54 IMPRESSION: No acute intracranial abnormality. D/ / Ahmet Chávez MD / Ahmet Chávez MD Interpreting Provider: Ahmet Chávez MD Chest CT 03/30/18 08:30 IMPRESSION: 1. Moderate bilateral pleural effusions, partially loculated on the right and mildly decreased on the left. 2. Persistent but decreased air within the pleural fluid on the right. This may be related to prior thoracentesis or chest tube placement. Correlation with the patient's history is suggested as infection cannot entirely be excluded. 3. A 4.2 cm masslike lesion in the posterior right pleural fluid, which appears somewhat smaller from the previous exam. This is most likely due to a hematoma or a pleural based mass. 4. Compressive bilateral lower lobe compressive atelectasis with possible superimposed pneumonia, similar to the previous exam. High density within the right lower lobe bronchi is concerning for prior aspiration. 5. Extensive body wall edema and small volume abdominal ascites. The patient is third-spacing. D/ / 03/30/2018 10:32:43 Lauri French MD / stephanie Interpreting Provider: Lauri French MD Consult Discharge Plan - Plan Referrals: Shakira Diaz CNP [Primary Care Provider] -
--- NOTE | 2018-03-30 13:51 | Nephrology Progress Note ---
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 Patient has undergone large volume removal via UF over the past two days and has consequently had a decent drop in weight. He has now dropped below his supposed dry weight, however we will continue to challenge dry weight as he appears to still benefit from fluid removal. Plan -Will undergo UF today -Continue IV Lasix 40mg BID. Patient's UOP remains negligible -Social work consult for hemodialysis transport -Challenge dry weight, patient may have lost muscle mass due to deconditioning due to chronic illness -Continue to follow (2) Diarrhea Current Visit: Yes Status: Acute Continues to have liquid stools Infectious disease on board Qualifiers: Diarrhea type: presumed infectious Qualified Code(s): R19.7 - Diarrhea, unspecified (3) CHF (congestive heart failure) Current Visit: Yes Status: Acute Systolic heart failure with last known EF 40-45% in August 2017, EF 20-25% at [facility] apparently Patient has significant fluid overload as demonstrated on exam and chest x-ray, BNP greater than 5000 We will remove fluid as possible with ultrafiltration and IV Lasix Qualifiers: Heart failure type: combined systolic and diastolic Heart failure chronicity: acute on chronic Qualified Code(s): I50.43 - Acute on chronic combined systolic (congestive) and diastolic (congestive) heart failure (4) Pleural effusion Current Visit: Yes Status: Acute Loculated right pleural effusion Management per CT Surgery (5) Acute encephalopathy Current Visit: Yes Status: Acute Acute encephalopathy of unknown origin Metabolic nature is possibly, he had negative head CT following fall last night We will do UF today, continue HD tomorrow Continue to monitor, management per primary team (6) Anemia in chronic kidney disease Current Visit: Yes Status: Acute Goal hemoglobin 10-11 Currently stable Qualifiers: Chronic kidney disease stage: on chronic dialysis Qualified Code(s): N18.6 - End stage renal disease; D63.1 - Anemia in chronic kidney disease; Z99.2 - Dependence on renal dialysis Subjective Principal diagnosis: ESRD Interval history: The patient is resting comfortably in bed at time of examination. He did have some issues with confusion overnight, and he had fall. He remained confused this morning when I saw him. Objective - Vital Signs Vital signs: Vital Signs Temp Pulse Resp BP Pulse Ox 03/30/18 11:11 97.8 F 70 17 110/74 96 03/30/18 08:38 96 03/30/18 07:31 97.9 F 81 17 127/77 93 03/30/18 05:14 97.8 F 78 18 135/96 96 03/30/18 00:32 97.9 F 75 18 142/96 96 03/29/18 21:47 95 03/29/18 20:25 97 F L 70 17 129/89 95 03/29/18 15:46 97.5 F L 18 139/82 03/29/18 15:20 128/77 03/29/18 15:05 127/87 03/29/18 14:50 120/75 03/29/18 14:35 132/84 03/29/18 14:20 135/78 03/29/18 14:05 138/88 03/29/18 13:50 132/91 Intake and Output 03/29/18 03/30/18 03/30/18 23:59 07:59 15:59 Intake Total 800 / 800 260 / 260 Output Total 0 / 0 Balance 800 / 800 260 / 260 Intake: IV Fluids 200 / 200 Zosyn 3.375 GM In 0.9 % Sodium 100 / 100 Chloride (Mini-Bag +) 100 ML @ 25 mls/hr IVPB Q12HR DUSTY Rx#: [id number] Vancocin 500 MG In 0.9 % Sodium 100 / 100 Chloride (Mini-Bag +) 100 ML @ 100 mls/hr IVPB ONCE ONE Rx#: [id number] Oral 600 / 600 260 / 260 Output: Urine 0 / 0 Other: Meal 2 cups ice Lunch Percent of Meal Consumed 100% 85% Stool Size Small Stool Consistency liquid Stool Color Brown # Bowel Movements 1 Weight 109 kg Blood Glucose* 104 61 70 Patient Weight 03/30/18 23:59 Weight 109 kg - General Appearance Exam: Gen: Vitals noted. Patient appears moderately distressed and anxious HEENT: Normocephalic, atraumatic Neck: Supple. No adenopathy. Cardiac: RRR, no murmur, +S1/S2 Pulmonary: Lung sounds are coarse bilaterally with no rales or rhonchi Abdomen: soft, nontender, no guarding Dialysis access: Left forearm AV fistula which is clean and currently in use. thrill is palpable Extremities: Status post left BKA, wound appears to be healing well. Left ulceration of the hypothenar eminence without apparent necrotic tissue Neuro: moves all extremities, no focal deficits. He does appear anxious today. - Lab 03/30/18 04:51 03/30/18 04:51 Most recent lab results ABG pH 7.49 pH Units (7.32-7.45) H 03/27/18 01:53 ABG pCO2 35 mmHg (35-45) 03/27/18 01:53 ABG pO2 221 mmHg (85-104) H 03/27/18 01:53 ABG HCO3 26 mEq/L (21-27) 03/27/18 01:53 ABG O2 Saturation 100 % (95-98) H 03/27/18 01:53 Calcium 8.5 mg/dL (8.6-10.3) L 03/30/18 04:51 Consult Discharge Plan - Plan Referrals: Shakira Diaz, REALTY SPECIALIST [Primary Care Provider] -
--- NOTE | 2018-03-30 15:08 | Infectious Disease Consult ---
Date of Encounter: 03/30/18 Time of Encounter: 12:00 Assessment and Plan (1) HCAP (healthcare-associated pneumonia) Status: Acute Assessment and plan: History of multiple recent hospitalizations. On admission, patient afebrile without tachycardia or tachypnea. No leukocytosis. Lactic acid normal. No fever, chills, cough. Legionella and Strep pneumoniae antigens cannot be tested due to inadequate urine production. Blood culture 03/26 x4 sets are NGTD. CXR 9/2 showed right lower lobe opacity, atelectasis vs pneumonia. Mild pulmonary edema. Moderate right pleural effusion. CXR /3 showed worsening bibasilar atelectasis and/or pneumonia. Right loculated pleural effusion. CT chest 03/26 showed bibasilar consolidation, possibly pneumonia. Pulmonary edema. Right loculated pleural effusion. Diffuse severe body wall edema. Scattered abdominal ascites. CT chest 03/30 showed bibasilar atelectasis with possible superimposed pneumonia. Levaquin discontinued. Vancomycin and zosyn since 03/26. Patient's clinical picture is not consistent with pneumonia. Spoke with radiologist today who states most likely atelectasis rather than pneumonia. Stop all antibiotics and observe. (2) Pleural effusion Status: Acute Assessment and plan: History of chronic right pleural effusion. Recent right thoracentesis with removal of 2L blood fluid at [facility] two weeks ago. CXR 2 showed moderate right pleural effusion. Small left pleural effusion. CT chest 03/26 showed moderate loculated right pleural effusion with air-fluid levels. Hydropneumothorax vs bronchopleural fistula vs empyema. Moderate left pleural effusion. CXR 3 showed loculated right pleural effusion. CT chest 03/30 showed moderate loculated right pleural effusion with small foci of air. Decreased moderate left pleural effusion. Concerning for empyema. Obtain thoracentesis with cell count, gram stain, culture, chemistry, and cytology. (3) Pulmonary edema Status: Acute Assessment and plan: Likely due to CHF exacerbation. CXR 9/2 showed bibasilar atelectasis. Mild pulmonary edema. CXR /3 showed worsening bibasilar atelectasis. CT chest /2 showed bibasilar consolidation. Pulmonary edema. Diffuse severe body wall edema. Scattered abdominal ascites. CT chest 6 showed bilateral compressive atelectasis. Extensive body wall edema with small abdominal ascites. Hemodialysis with large volume ultrafiltration. Lasix. Management per primary team and Nephrology. Qualifiers: Chronicity: acute Qualified Code(s): J81.0 - Acute pulmonary edema (4) ESRD on hemodialysis Status: Chronic Assessment and plan: Secondary to oxalate nephropathy. Dialysis Mon/Wed/Fri. Right upper chest dialysis catheter. Nephrology consulted and following. (5) Lung mass Status: Acute Assessment and plan: CT chest 03/26 showed 5.5cm rounded area in posterior right pleural space. Blood product vs mass. CT chest 03/30 showed 4.2cm mass-like lesion in right posterior pleural fluid. Hematoma vs pleural mass. Thoracentesis with cell count, chemistry, and cytology. (6) Chronic respiratory failure with hypoxia Status: Chronic Assessment and plan: Home oxygen 2L due to CHF. Oxygen saturation stable. (7) Acute on chronic systolic (congestive) heart failure Status: Acute Assessment and plan: Likely due to fluid overload. BNP >5000. Echo 08/2017 showed EF 40-45%. EF at [facility] 20-25% CXR and CT chest showed cardiomegaly, pulmonary edema, and bilateral pleural effusion. Hemodialysis with ultrafiltration for fluid removal. Lasix. ASA, BB, Lisinopril. Management per primary team and Nephrology. (8) Diarrhea Status: Acute Assessment and plan: Loose watery diarrhea. Small-volume. Recently treated for C.diff colitis at [facility]. Qualifiers: Diarrhea type: presumed infectious Qualified Code(s): R19.7 - Diarrhea, unspecified (9) Hyponatremia Status: Resolved Assessment and plan: Resolved. Likely secondary to hypervolemia. Hemodialysis with ultrafiltration and Lasix. (10) Chest pain Status: Resolved Assessment and plan: Resolved. EKG showed no evidence of acute ischemia or infarction. Troponin negative x3. Qualifiers: Chest pain type: chest pain on breathing Qualified Code(s): R07.1 - Chest pain on breathing; R07.81 - Pleurodynia (11) Back pain Status: Acute Assessment and plan: Lumbar XR shows no acute bony abnormality. Multilevel degenerative disc disease. Qualifiers: Back pain location: low back pain Chronicity: acute Back pain laterality : left Sciatica presence: without sciatica Qualified Code(s): M54.5 - Low back pain (12) Type 2 diabetes mellitus treated with insulin Status: Chronic Assessment and plan: HbA1c 6.1. Sliding scale insulin (13) Anemia in chronic kidney disease Status: Chronic Assessment and plan: Goal Hb 10-11. Currently stable. Qualifiers: Chronic kidney disease stage: on chronic dialysis Qualified Code(s): N18.6 - End stage renal disease; D63.1 - Anemia in chronic kidney disease; Z99.2 - Dependence on renal dialysis (14) Essential hypertension Status: Chronic Assessment and plan: Lisinopril. Infectious Disease HPI - Data of Consult Requesting Physician: Reji Glass MD Primary Care Provider: Shakira Diaz CNP - Consult Narrative History of present illness: Mr. Bruno is a 52 year old male with past medical history of ESRD on hemodialysis M/W/F, CHF, chronic pleural effusion, diabetes, diabetic wound s/p recent left below knee amputation, and HTN. The patient was admitted to the hospital on 03/26/18 for pneumonia, CHF exacerbation, and fluid overload. We are consulted 03/30/18 for pneumonia. Briefly, the patient is a 52 year old male with past medical history as stated above. Recently had left BKA at outside facility and was discharged from [facility] a week ago. Also had right thoracentesis with removal of 2L blood fluid at [facility] two weeks ago. Patient presented to [facility] ED on 03/26 complaining of chest pain, shortness of breath, worsening edema, and low back pain for 3-4 days. Vital signs were stable and labs showed elevated BNP at > 5000. Blood culture obtained. CXR showed right lower lobe opacity, atelectasis vs pneumonia. Mild pulmonary edema and right pleural effusion. CT chest showed bibasilar consolidation, possibly pneumonia. Pulmonary edema and right pleural effusion. Patient was transferred here to [facility] for further evaluation and management. On admission, patient was afebrile without tachycardia or tachypnea. There was no leukocytosis. Lactic acid was normal. Blood cultures were obtained. Patient was started on vancomycin, zosyn, and levaquin for hospital-acquired pneumonia. Nephrology was consulted for help with hemodialysis. Early in 03/27, patient became unresponsive with agonal breathing. Rapid response was called. Blood pressure was 69/48, responsive to IVF. Oxygen saturation dropped. Patient became responsive after narcan. CXR showed worsening bibasilar consolidation. Patient was given Lasix. Patient has been stable since. Urgent hemodialysis with large volume ultrafiltration was performed to remove excessive fluid with improvement in edema and breathing. Levaquin was discontinued. CT Surgery was consulted for loculated right pleural effusion. ID was consulted for pneumonia. Patient had a fall last night. Head CT showed no acute intracranial abnormality. Followup CT chest showed moderate bilateral pleural effusion. 4.2cm mass-like lesion in right posterior pleural fluid, hematoma vs pleural mass. Bibasilar atelectasis with possible superimposed pneumonia. Extensive body wall edema and small abdominal ascites. During my exam today, the patient and family endorses the history as stated above. He is resting comfortably in bed with head of bed elevated. Patient states feeling ok. Sister states that patient has been out of it since being admitted on Tuesday and is worse today. States when having conversation, hell go off on tangents. Patient is alert and oriented to person, place, and time. When asked why he fell last night, patient states that he heard people at his door, he opened the screen door, and he was on his hands and knees, and then he saw people walking away on the sidewalk. Sister states hes never been like this before. Sister reports shortness of breath is improved. Patient reports having small volume diarrhea. Patient and sister denies cough. Denies fever, chills. Denies chest pain, swelling. Denies urinary symptoms. Denies constipation. Denies abdominal pain, nausea/vomiting. Denies visual or auditory changes. CC: Reji Glass MD Past Med Surg Social Fam HX - Past Medical History Medical history: cardiomyopathy, CHF, coronary artery disease, diabetes (Type II ), hyperlipidemia, hypertension, kidney stones, peripheral artery disease, renal disease (Stage IV), thyroid disease, other (Diabetic neuropathy) Additional medical history: neuropathy Psychiatric history: depression - Past Surgical History Surgical History: bariatric surgery, other (Left BKA, left upper extremity AVF, right subclavian vein dialysis catheter) Additional surgical history: GASTRIC BYPASS. RIGHT UPPER CHEST DIALYSIS CATHETER. LEFT WRIST DIALYSIS FISTULA - Social History Smoking Status: Never smoker Smokeless Tobacco Status: No Alcohol use: none Drug use: none - Family History Father Adopted: No Living Status: Hx Family Cardiac Disorders: Yes Hx Family Respiratory Disorders: Yes Hx Family Cancer: No Hx Family GI Disorders: No Hx Family Endocrine Disorder: No Hx Family Neuromuscular Disorders: No Hx Family Neurologic Disorders: No Hx Family HEENT Disorders: No Hx Family Autoimmune Disorders: No Infectious Disease-CN:Meds HYDROcodone/Acet 5/325 mg [Lowry 5-325 mg] 1 tab PO BID PRN 07/21/17 [History] Aspirin [Lo-Dose Aspirin EC] 81 mg PO DAILY 03/26/18 [History] Calcitriol 0.5 mcg PO DAILY 03/26/18 [History] Carvedilol 12.5 mg PO BID 03/26/18 [History] Clopidogrel [Plavix] 75 mg PO DAILY 03/26/18 [History] Cyclobenzaprine [Flexeril] 10 mg PO BID PRN 03/26/18 [History] Ferric Citrate [Auryxia] 420 mg PO TID MDD 8 tablets 03/26/18 [History] Furosemide [Lasix] 40 mg PO BID 03/26/18 [History] Insulin LISPRO [HumaLOG] 5 - 10 unit SQ TIDWM 03/26/18 [History] Isosorbide MONOnitrate (24 HR) [Imdur] 30 mg PO DAILY 03/26/18 [History] L.acidoph,Paracasei, B.lactis [Probiotic] 1 cap PO DAILY 03/26/18 [History] Levothyroxine [Synthroid] 25 mcg PO DAILY 03/26/18 [History] Lisinopril [Zestril] 20 mg PO DAILY 03/26/18 [History] OxyCODONE Immed Rel [Roxicodone 10 MG] 10 mg PO Q6H PRN 03/26/18 [History] Ropinirole HCl [Requip] 4 mg PO HS 03/26/18 [History] Rosuvastatin [Crestor] 40 mg PO HS 03/26/18 [History] Vitamin B Complex [B Complex] 1 each PO DAILY 03/26/18 [History] buPROPion HCl [Zyban] 150 mg PO BID 03/26/18 [History] 3 Allergy/AdvReac Type Severity Reaction Status Date / Time No Known Allergies Allergy Verified 03/26/18 11:14 Exam - Constitutional Vitals: Temp Pulse Resp BP Pulse Ox 97.8 F 70 17 110/74 96 03/30/18 11:11 03/30/18 11:11 03/30/18 11:11 03/30/18 11:11 03/30/18 11:11 General appearance: cooperative, no acute distress, obese, no febrile - Head Head exam: Present: atraumatic, normal inspection, normocephalic - Eye Eye exam: Present: EOMI, normal appearance, PERRL - ENT ENT exam: Present: mucous membranes moist, normal oropharynx - Neck Neck exam: Present: normal inspection - Respiratory Respiratory exam: Present: CTAB. Absent: rales, respiratory distress, rhonchi, wheezes - Cardiovascular Cardiovascular exam: Present: RRR, +S1, +S2 - GI/Abdominal GI/Abdominal exam: Present: normal bowel sounds, soft. Absent: distended, tenderness - Extremities Exam Extremities exam: Absent: joint swelling, normal inspection (Left below knee amputation. Surgical scar observed, well healed and non-draining. Small wound along surgical scar. ), pedal edema, tenderness - Neurological Exam Neurological exam: Present: alert, oriented X3, no focal deficits - Psychiatric Psychiatric exam: Present: normal affect, normal mood - Skin Skin exam: Present: dry, intact (Multiple small wounds on body ), normal color, warm Infectious Disease CN: Results - Labs CBC & Chem 7: 03/30/18 04:51 03/30/18 04:51 Cultures: Cultures 03/26/18 18:56 Blood Culture - Preliminary Peripheral Venipuncture Culture is incubating and being continuously monitored for growth. Final report to follow. 03/26/18 18:56 Blood Culture - Preliminary Peripheral Venipuncture Culture is incubating and being continuously monitored for growth. Final report to follow. Serology: Serology 03/27/18 03/27/18 Range/Units 08:05 02:25 Stool Occult Blood Positive A (Negative) Hep Bs Antigen Nonreactive (Nonreactive) Hep Bs Antibody 162.00 mIU/mL Consult Discharge Plan - Plan Referrals: Shakira Diaz, BARREL LINE OPERATOR [Primary Care Provider] - - Attending Attestation This is an addendum to original report dictated by resident physician. Please refer to resident's note for full details. 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 Patient apparently came in with severe shortness of breath hypoxia worsening edema. Since hospital admission patient has not had a fever, no leukocytosis, no tachypnea, no tachycardia and no SIRS criteria. Patient did have initial CT done on March 26 which showed bibasal consolidation with possible pneumonia pulmonary edema and right loculated pleural effusion with diffuse severe body wall edema and scattered abdominal ascites. I reviewed the CAT scan myself and with radiology and there was some air bubbles and they think it is due to to previous thoracentesis. He did not think it was empyema. I did speak with Dr. Mcgowan from radiology who also read the CAT scan from March 30 and they thinks all fluid and atelectasis. There is no obvious pneumonia. I also spoke with Dr. Lara and apparently the patient might benefit from decortication or chest tube placement but he is high risk right now and he needs to be more stable for that. He was totally fine with getting a thoracentesis done. After long discussion and reviewing all the chart and the imaging I think the patient pulmonary symptoms are all due to fluids and pleural effusion. I do not believe has a pneumonia especially with no productive cough no fever or leukocytosis no tachypnea no tachycardia and no sepsis criteria. I am willing to stop all antibiotics. I did speak with Dr. Glass who is agreeable. Patient will need a thoracentesis. Please send fluid for cell count, Gram stain and cultures, chemistry including protein, glucose, LDH, protein and amylase We will continue to monitor closely Patient starts showing signs of infection will start empiric antibiotics right away
[2018-03-30 15:36] LABS: INR 1.5; Prothrombin Time 17.2 Seconds (9.4-12.1)
[2018-03-30] MEDS: rOPINIRole 1 MG TABLET PO SCH (20:03)
[2018-03-31] MEDS: *HR* Heparin 5,000 UNIT/ML VIAL SQ SCH ×3 (00:50→16:33)
[2018-03-31] MEDS: Piperacillin/Tazobactam 3.375 GM in 0.9 % Sodium Chloride Mini Bag 100 ML IVPB SCH (05:42)
[2018-03-31] MEDS: Levothyroxine 25 MCG TABLET PO SCH (05:43)
[2018-03-31 05:48] LABS: Hematocrit 27.3 % (37.5-50.1); Hemoglobin 8.4 g/dL (12.9-16.9); Mean Corpuscular HGB Conc 30.8 g/dL (31.6-35.5); Mean Corpuscular Hemoglobin 31.5 pg (28.0-33.3); Mean Corpuscular Volume 102.2 fL (83.0-100.0); Mean Platelet Volume 10.2 fL (9.4-12.4); Platelet Count 117 K/mcL (140-400); Red Blood Count 2.67 M/mcL (4.19-5.50); Red Cell Distribution Width 17.2 % (11.5-14.5)
[2018-03-31 06:05] LABS: Calcium 8.4 mg/dL (8.6-10.3); Potassium 4.2 mEq/L (3.5-5.1)
[2018-03-31] MEDS ORDERED: 0.9 % Sodium Chloride 250 ML IVC PRN (07:43)
[2018-03-31] MEDS: Isosorbide MONOnitrate (24 HR) 30 MG TAB.ER.24H PO SCH (07:43)
[2018-03-31] MEDS: Furosemide 40 MG/4 ML VIAL IVP SCH ×2 (07:43→16:33)
[2018-03-31] MEDS: Insulin LISPRO 300 UNITS/3 ML VIAL SQ SCH ×4 (07:43→21:49)
[2018-03-31] MEDS ORDERED: 0.9 % Sodium Chloride 1,000 ML PRIME SCH (07:45)
[2018-03-31] MEDS: Vitamin B Complex/Vit C/Vit E 1 EACH TABLET PO SCH (07:51)
[2018-03-31] MEDS: BuPROPion SR (12 HR) 150 MG TABLET PO SCH ×2 (07:51→21:48)
[2018-03-31] MEDS: Aspirin Enteric Coated 81 MG Tablet PO SCH (07:51)
--- NOTE | 2018-03-31 09:04 | Nephrology Progress Note ---
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 Patient has undergone large volume removal via UF over the past two days and has consequently had a decent drop in weight. He has now dropped below his supposed dry weight, however we will continue to challenge dry weight as he appears to still benefit from fluid removal. Plan -Plan for HD with UF today -Continue IV Lasix 40mg BID, although Patient's UOP remains negligible -Social work consult for hemodialysis transport -Challenge dry weight, patient may have lost muscle mass due to deconditioning due to chronic illness -Continue to follow (2) Diarrhea Current Visit: Yes Status: Acute Continues to have liquid stools Infectious disease on board Qualifiers: Diarrhea type: presumed infectious Qualified Code(s): R19.7 - Diarrhea, unspecified (3) CHF (congestive heart failure) Current Visit: Yes Status: Acute Systolic heart failure with last known EF 40-45% in August 2017, EF 20-25% at [facility] apparently Patient has significant fluid overload as demonstrated on exam and chest x-ray, BNP greater than 5000 We will remove fluid as possible with ultrafiltration and IV Lasix Qualifiers: Heart failure type: combined systolic and diastolic Heart failure chronicity: acute on chronic Qualified Code(s): I50.43 - Acute on chronic combined systolic (congestive) and diastolic (congestive) heart failure (4) Pleural effusion Current Visit: Yes Status: Acute Loculated right pleural effusion Management per CT Surgery (5) Acute encephalopathy Current Visit: Yes Status: Acute Acute encephalopathy of unknown origin Metabolic nature is possibly, he had negative head CT following fall last night We will do UF today, continue HD tomorrow Continue to monitor, management per primary team (6) Anemia in chronic kidney disease Current Visit: Yes Status: Chronic Goal hemoglobin 10-11 Currently stable Qualifiers: Chronic kidney disease stage: on chronic dialysis Qualified Code(s): N18.6 - End stage renal disease; D63.1 - Anemia in chronic kidney disease; Z99.2 - Dependence on renal dialysis Subjective Principal diagnosis: ESRD Interval history: The patient is resting comfortably in bed at time of examination. He did have some issues with confusion overnight, and he had fall. He remained confused this morning when I saw him. Objective - Vital Signs Vital signs: Vital Signs Temp Pulse Resp BP Pulse Ox 03/31/18 07:58 100 03/31/18 07:40 97.6 F 76 16 135/93 100 03/31/18 04:25 97.7 F 71 16 139/97 100 03/30/18 23:49 97.9 F 69 16 129/56 98 03/30/18 19:34 98.2 F 71 18 122/87 100 03/30/18 15:58 97.8 F 74 19 117/77 94 03/30/18 11:11 97.8 F 70 17 110/74 96 Intake and Output 03/30/18 03/31/18 03/31/18 23:59 07:59 15:59 Intake Total 100 / 100 0 / 0 Output Total 0 / 0 Balance 100 / 100 0 / 0 Intake: IV Fluids 100 / 100 Zosyn 3.375 GM In 0.9 % Sodium 100 / 100 Chloride (Mini-Bag +) 100 ML @ 25 mls/hr IVPB Q12HR [facility] Rx#: [id number] Oral 0 / 0 Output: Urine 0 / 0 Other: Stool Size Small Stool Consistency loose Blood Glucose* 71 76 - General Appearance Exam: Gen: Vitals noted. Patient appears moderately distressed and anxious HEENT: Normocephalic, atraumatic Neck: Supple. No adenopathy. Cardiac: RRR, no murmur, +S1/S2 Pulmonary: Lung sounds are coarse bilaterally with no rales or rhonchi Abdomen: soft, nontender, no guarding Dialysis access: Left forearm AV fistula which is clean and currently in use. thrill is palpable Extremities: Status post left BKA, wound appears to be healing well. Left ulceration of the hypothenar eminence without apparent necrotic tissue Neuro: moves all extremities, no focal deficits. He does appear anxious today. - Lab 03/31/18 05:20 03/31/18 05:20 Most recent lab results ABG pH 7.49 pH Units (7.32-7.45) H 03/27/18 01:53 ABG pCO2 35 mmHg (35-45) 03/27/18 01:53 ABG pO2 221 mmHg (85-104) H 03/27/18 01:53 ABG HCO3 26 mEq/L (21-27) 03/27/18 01:53 ABG O2 Saturation 100 % (95-98) H 03/27/18 01:53 Calcium 8.4 mg/dL (8.6-10.3) L 03/31/18 05:20 Consult Discharge Plan - Plan Referrals: Shakira Diaz, OUTSIDE MACHINIST SUPERVISOR [Primary Care Provider] -
[2018-03-31] MEDS: *HR* HYDROcodone/Acet 5/325 mg TABLET PO PRN (09:18)
--- NOTE | 2018-03-31 09:18 | Infectious Disease Progress No ---
Date of Encounter: 03/31/18 Time of Encounter: 08:40 - Assessment and Plan (1) HCAP (healthcare-associated pneumonia) Current Visit: Yes Status: Acute History of multiple recent hospitalizations. On admission, patient afebrile without tachycardia or tachypnea. No leukocytosis. Lactic acid normal. No fever, chills, cough. Legionella and Strep pneumoniae antigens cannot be tested due to inadequate urine production. Blood culture /2 x4 sets are NGTD. CXR 9/2 showed right lower lobe opacity, atelectasis vs pneumonia. Mild pulmonary edema. Moderate right pleural effusion. CXR 9/3 showed worsening bibasilar atelectasis and/or pneumonia. Right loculated pleural effusion. CT chest 9/2 showed bibasilar consolidation, possibly pneumonia. Pulmonary edema. Right loculated pleural effusion. Diffuse severe body wall edema. Scattered abdominal ascites. CT chest 9/6 showed bibasilar atelectasis with possible superimposed pneumonia. Patient's clinical picture is not consistent with pneumonia. Spoke with radiologist who states most likely atelectasis rather than pneumonia. Stop all antibiotics and observe. (2) Pleural effusion Current Visit: Yes Status: Acute History of chronic right pleural effusion. Recent right thoracentesis with removal of 2L blood fluid at [facility] two weeks ago. CXR 9/2 showed moderate right pleural effusion. Small left pleural effusion. CT chest 9/2 showed moderate loculated right pleural effusion with air-fluid levels. Hydropneumothorax vs bronchopleural fistula vs empyema. Moderate left pleural effusion. CXR 9/3 showed loculated right pleural effusion. CT chest 9/6 showed moderate loculated right pleural effusion with small foci of air. Decreased moderate left pleural effusion. Concerning for empyema. Obtain thoracentesis with cell count, gram stain, culture, chemistry, and cytology. (3) Pulmonary edema Current Visit: Yes Status: Acute Likely due to CHF exacerbation. CXR 9/2 showed bibasilar atelectasis. Mild pulmonary edema. CXR 9/3 showed worsening bibasilar atelectasis. CT chest 9/2 showed bibasilar consolidation. Pulmonary edema. Diffuse severe body wall edema. Scattered abdominal ascites. CT chest 9/6 showed bilateral compressive atelectasis. Extensive body wall edema with small abdominal ascites. Hemodialysis with large volume ultrafiltration. Lasix. Management per primary team and Nephrology. 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 Dialysis Mon/Wed/Fri. Right upper chest dialysis catheter. Nephrology consulted and following. (5) Lung mass Current Visit: Yes Status: Acute CT chest 03/26 showed 5.5cm rounded area in posterior right pleural space. Blood product vs mass. CT chest 03/30 showed 4.2cm mass-like lesion in right posterior pleural fluid. Hematoma vs pleural mass. Thoracentesis with cell count, chemistry, and cytology. (6) Chronic respiratory failure with hypoxia Current Visit: Yes Status: Chronic Home oxygen 2L due to CHF. Oxygen saturation stable. (7) Acute on chronic systolic (congestive) heart failure Current Visit: Yes Status: Acute Likely due to fluid overload. BNP >5000. Echo 08/2017 showed EF 40-45%. EF at [facility] 20-25% CXR and CT chest showed cardiomegaly, pulmonary edema, and bilateral pleural effusion. Hemodialysis with ultrafiltration for fluid removal. Lasix. ASA, BB, Lisinopril. Management per primary team and Nephrology. (8) Diarrhea Current Visit: Yes Status: Acute Loose watery diarrhea. Small-volume. Recently treated for C.diff colitis at [facility]. Qualifiers: Diarrhea type: presumed infectious Qualified Code(s): R19.7 - Diarrhea, unspecified (9) Hyponatremia Current Visit: Yes Status: Resolved Resolved. Likely secondary to hypervolemia. Hemodialysis with ultrafiltration and Lasix. (10) Chest pain Current Visit: Yes Status: Resolved Resolved. EKG showed no evidence of acute ischemia or infarction. Troponin negative x3. Qualifiers: Chest pain type: chest pain on breathing Qualified Code(s): R07.1 - Chest pain on breathing; R07.81 - Pleurodynia (11) Back pain Current Visit: Yes Status: Acute Lumbar XR shows no acute bony abnormality. Multilevel degenerative disc disease. Qualifiers: Back pain location: low back pain Chronicity: acute Back pain laterality : left Sciatica presence: without sciatica Qualified Code(s): M54.5 - Low back pain (12) Type 2 diabetes mellitus treated with insulin Current Visit: No Status: Chronic HbA1c 6.1. Sliding scale insulin (13) Anemia in chronic kidney disease Current Visit: Yes Status: Chronic Goal Hb 10-11. Currently stable. Qualifiers: Chronic kidney disease stage: on chronic dialysis Qualified Code(s): N18.6 - End stage renal disease; D63.1 - Anemia in chronic kidney disease; Z99.2 - Dependence on renal dialysis (14) Essential hypertension Current Visit: No Status: Chronic Lisinopril. - Subjective Interval history: Patient was seen and examined. No acute events overnight. He is resting comfortably in bed with head of bed elevated at dialysis unit. Sister is not present at this time. He is repeatedly drifting asleep during encounter. States he's "very sleepy." He has not been sleeping well since being in hospital. Patient is oriented to person, place, and time, but still seems confused. Difficult to assess any improvement in confusion at this time without sister present and with patient's drowsy state. Patient states feeling "miserable" due to his dry mouth from being NPO for thoracentesis. Reports nausea without emesis. Denies abdominal pain. States his shortness of breath is "worse," patient is not dyspneic, tachypneic, or hypoxic, and lungs are clear at this time. Patient states that he has left groin swelling, but there is no swelling on exam. He does not know if diarrhea is better, worse, or the same as yesterday. Yesterday patient and sister denied cough, today patient states he's had cough for 1 month. Infect Dis PN-Objective Data - Labs CBC & Chem 7: 03/31/18 05:20 03/31/18 05:20 Labs: Laboratory Results - last 24 hr 03/29/18 03/29/18 03/29/18 11:33 16:38 20:18 WBC RBC Hgb Hct MCV MCH MCHC RDW Plt Count MPV PT INR Sodium Potassium Chloride Carbon Dioxide BUN Creatinine Est GFR ( Amer) Est GFR (Non-Af Amer) BUN/Creatinine Ratio Glucose POC Glucose 93 89 104 H Calculated Osmolality Calcium Random Vancomycin 03/30/18 03/30/18 03/30/18 04:51 07:24 11:31 WBC RBC Hgb Hct MCV MCH MCHC RDW Plt Count MPV PT INR Sodium 136 Potassium 4.0 Chloride 96 L Carbon Dioxide 29 BUN 25 H Creatinine 4.63 H Est GFR ( Amer) 16 L Est GFR (Non-Af Amer) 13 L BUN/Creatinine Ratio 5 L Glucose 62 L POC Glucose 61 L 70 Calculated Osmolality 284 Calcium 8.5 L Random Vancomycin 03/30/18 03/30/18 03/31/18 15:13 19:46 05:20 WBC 6.5 RBC 2.67 L Hgb 8.4 L Hct 27.3 L MCV 102.2 H MCH 31.5 MCHC 30.8 L RDW 17.2 H Plt Count 117 L MPV 10.2 PT 17.2 H INR 1.5 Sodium Potassium Chloride Carbon Dioxide BUN Creatinine Est GFR ( Amer) Est GFR (Non-Af Amer) BUN/Creatinine Ratio Glucose POC Glucose 71 Calculated Osmolality Calcium Random Vancomycin 03/31/18 03/31/18 05:20 05:20 WBC RBC Hgb Hct MCV MCH MCHC RDW Plt Count MPV PT INR Sodium 136 Potassium 4.2 Chloride 98 Carbon Dioxide 25 BUN 30 H Creatinine 5.53 H Est GFR ( Amer) 13 L Est GFR (Non-Af Amer) 11 L BUN/Creatinine Ratio 5 L Glucose 71 POC Glucose Calculated Osmolality 287 Calcium 8.4 L Random Vancomycin 18 Cultures: Cultures 03/26/18 18:56 Blood Culture - Preliminary Peripheral Venipuncture Culture is incubating and being continuously monitored for growth. Final report to follow. 03/26/18 18:56 Blood Culture - Preliminary Peripheral Venipuncture Culture is incubating and being continuously monitored for growth. Final report to follow. Serology 03/27/18 03/27/18 Range/Units 08:05 02:25 Stool Occult Blood Positive A (Negative) Hep Bs Antigen Nonreactive (Nonreactive) Hep Bs Antibody 162.00 mIU/mL - Impressions Impressions Chest CT 03/30/18 08:30 IMPRESSION: 1. Moderate bilateral pleural effusions, partially loculated on the right and mildly decreased on the left. 2. Persistent but decreased air within the pleural fluid on the right. This may be related to prior thoracentesis or chest tube placement. Correlation with the patient's history is suggested as infection cannot entirely be excluded. 3. A 4.2 cm masslike lesion in the posterior right pleural fluid, which appears somewhat smaller from the previous exam. This is most likely due to a hematoma or a pleural based mass. 4. Compressive bilateral lower lobe compressive atelectasis with possible superimposed pneumonia, similar to the previous exam. High density within the right lower lobe bronchi is concerning for prior aspiration. 5. Extensive body wall edema and small volume abdominal ascites. The patient is third-spacing. D/ / 03/30/2018 10:32:43 Lauri French MD / stephanie Interpreting Provider: Lauri French MD Exam - Constitutional Vitals: Temp Pulse Resp BP Pulse Ox 97.6 F 76 16 135/93 100 03/31/18 07:40 03/31/18 07:40 03/31/18 07:40 03/31/18 07:40 03/31/18 07:58 General appearance: cooperative, no acute distress, obese, no febrile - Head Head exam: Present: atraumatic, normal inspection, normocephalic - Eye Eye exam: Present: EOMI, normal appearance, PERRL - Neck Neck exam: Present: normal inspection - Respiratory Respiratory exam: Present: CTAB. Absent: accessory muscle use, rales, respiratory distress, rhonchi, wheezes, tachypnea - Cardiovascular Cardiovascular exam: Present: RRR, +S1, +S2 - GI/Abdominal GI/Abdominal exam: Present: normal bowel sounds, soft. Absent: distended, tenderness - Extremities Exam Extremities exam: Present: normal inspection. Absent: joint swelling, pedal edema, tenderness Additional comments: Left BKA - Neurological Exam Neurological exam: Present: oriented X3, no focal deficits. Absent: alert ( drowsy ) - Skin Skin exam: Present: dry, intact (Multiple small wounds on body), normal color, warm Consult Discharge Plan - Plan Additional Instructions: 1. PT agreed to start risperidone 0.5 mg PO QAM and 1.0 mg PO QHS for acute psychosis Pt was educated on the risks benefits and side effects of current medications including no medications, pt was in agreement. 2. D/C quetiapine Referrals: Shakira Diaz, DRAFTER PATENT [Primary Care Provider] - - Attending Attestation I examined this patient and my medical decision-making was reviewed with the Resident Physician. I agree with the documented findings, disposition and treatment plan as described except to the extent set forth below. Thoracentesis appears to be transudate. Gram stain is negative. No signs of empyema. Continue to observe off antibiotics. If clinically there is any change please call us over the weekend and will be able to start him on some empiric antibiotics.
[2018-03-31] MEDS ORDERED: 0.9 % Sodium Chloride 1,000 ML ONE (09:56)
--- NOTE | 2018-03-31 10:28 | Internal Med Progress Note ---
Hospitalist Progress Note - Encounter Date of Encounter: 03/31/18 Time of Encounter: 10:26 - Subjective Interval History: Patient seen and examined this morning. For HD today. Edema and Breathing improving. Not able to sleep. Having occasional hallucinations. Occasionally confused and does not make sense. Fidgety. - Exam Vitals: Temp Pulse Resp BP Pulse Ox 97.6 F 76 16 135/93 100 03/31/18 07:40 03/31/18 07:40 03/31/18 07:40 03/31/18 07:40 03/31/18 07:58 Exam: CONSTITUTIONAL: On and off confused, fidgety. EYES Clear sclerae, bilateral pupils are equal, reactive to light and accommodation. Extraocular movements are intact RESPIRATORY: No accessory muscle use, bilateral basilar crackles to auscultation , no wheezing. Decreased air entry on Rt. CARDIOVASCULAR: Regular heart rate, normal S1 and S2, no murmurs GASTROINTESTINAL: bowel sounds present, soft, no tenderness. No hepatosplenomegaly. MUSCULOSKELETAL: Joints in normal range of motion, no clubbing, no edema, no cyanosis. Left BKA. Leg edema decreased NEUROLOGIC: CN II to XII are grossly intact, no focal neurological deficit. Deep tendon reflexes 2+ bilaterally. PSYCHIATRIC: Oriented x2. Reports some hallucinations. Occasionally with bizzare answers to simple questions. SKIN: Skin warm and dry. Had fall with some bruise and scar on Lt and Rt hand. - Summary of Assessment and Plan Summary of Assessment and Plan: CT finding of Pneumonia - Initially started on possible gram-negative bacterial pneumonia due to recent admission. - Was treated with on Vancomycin and Zosyn and ID consulted. No urine sample could be obtained for strep and legionella ag. - Unlikely to have pneumonia clinically. Vancomycin and Zosyn stopped. - To go for IR diagnostic tap today. Pleural effusion - Recent 2L bloody pleural fluid taken out at [facility]. - Repeat CT with Loculated effusion. - CT surgeon consulted. Recommended IR with tPA may not be successful. Currently not stable for intervention. - IR for diagnostic tap. 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 - c/w diuresis and ultrafiltration. Acute encephalopathy - Unclear cause - Appears Metabolic nature. CT head negative. - Consult psychiatry to evaluate for psychiatric cause if any. 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 CHF and Severe ischemic CAD - EF 20-25% at [facility]. Was being evaluated outpatient for surgical evaluation. - continue Lasix, ASA, BB, lisinopril and continue HD. Off plavix per cardiology note from [facility]. - Was discharged from [facility] with lifevest. Ask family to bring lifevest. Anemia - Macrocystic. Likely related to ESRD. - Currently at baseline. No active bleeding. However occult blood positive. has history of hemorrhoids. Colonoscopy on 08/27 was normal. Monitor for now. - Will consider GI consult if further drop in Hb. Lower threshold to transfuse given h/o severe CAD. Diarrhea - Likely secondary to C. difficile colitis. - Recent Cdiff treated at [facility] - Improving. Will consider loperamide for symtomatic relief. Chest pain - resolved, negative trop times 3. Back pain - XR showed L-spine DJD. No acute pathology noticed. Chronic respiratory failure with hypoxia - c/w 2 L NC at home Dyspnea - multi-factorial addressed as above Essential hypertension - c/w lisinopril Diabetes mellitus - SSI DVT prophylaxis - heaprin SC - Time Spent with Patient Total time spent is greater than 50% in coordination of care (as documented) at patient's floor/unit and/or counseling patient: Internal Medicine: Result - Labs CBC & Chem 7: 03/31/18 05:20 03/31/18 05:20 Labs: Short CBC 03/31/18 Range/Units 05:20 WBC 6.5 (4.3-11.1) K/mcL Hgb 8.4 L (12.9-16.9) g/dL Hct 27.3 L (37.5-50.1) % Plt Count 117 L (140-400) K/mcL BMP 03/31/18 05:20 Sodium 136 Potassium 4.2 Chloride 98 Carbon Dioxide 25 BUN 30 H Creatinine 5.53 H Glucose 71 Calcium 8.4 L - ABG Interpretation ABG results: ABG ABG pH 7.49 pH Units (7.32-7.45) H 03/27/18 01:53 ABG pCO2 35 mmHg (35-45) 03/27/18 01:53 ABG pO2 221 mmHg (85-104) H 03/27/18 01:53 ABG O2 Saturation 100 % (95-98) H 03/27/18 01:53 PT/INR, D-dimer PT 17.2 Seconds (9.4-12.1) H 03/30/18 15:13 - Impressions Impressions Chest CT 03/30/18 08:30 IMPRESSION: 1. Moderate bilateral pleural effusions, partially loculated on the right and mildly decreased on the left. 2. Persistent but decreased air within the pleural fluid on the right. This may be related to prior thoracentesis or chest tube placement. Correlation with the patient's history is suggested as infection cannot entirely be excluded. 3. A 4.2 cm masslike lesion in the posterior right pleural fluid, which appears somewhat smaller from the previous exam. This is most likely due to a hematoma or a pleural based mass. 4. Compressive bilateral lower lobe compressive atelectasis with possible superimposed pneumonia, similar to the previous exam. High density within the right lower lobe bronchi is concerning for prior aspiration. 5. Extensive body wall edema and small volume abdominal ascites. The patient is third-spacing. D/ / 03/30/2018 10:32:43 Lauri French MD / stephanie Interpreting Provider: Lauri French MD Consult Discharge Plan - Plan Referrals: Shakira Diaz, LOUISA [Primary Care Provider] -
--- NOTE | 2018-03-31 13:24 | IR Procedure Note ---
Date of procedure: 03/31/18 Consent Obtained: Written consent Timeout: Correct patient and procedure verified, Correct site verified, Time out performed, Skin prep completed Local anesthetic: Lidocaine 1% Indications: Bilateral effusions Procedure Performed: Bilateral thoracentesis Was there an events assistant present: No Site/Technique: Right pleural effusion loculated, minimal fluid obtained for sample Results/Findings: Left pleural effusion: 800ml obtained. Tolerated well. Estimated blood loss (cc): 1 Complications: None; Tolerated procedure well Post Procedure Treatment Plan: Monitoring in pts room. Specimen: Sample from right side sent per request.
[2018-03-31 14:55] LABS: Glucose,Pleural Fluid 18 mg/dL (No Ref Range); LDH,Pleural Fluid > 1200 Units/L (No Ref Range); Total Protein,Pleural Fluid < 3.0 g/dL (No Ref Range)
--- NOTE | 2018-03-31 15:00 | Consult Note ---
Date of Encounter: 03/31/18 Time of Encounter: 13:45 Assessment & Recommendation (1) Depressive disorder Current visit: Yes Status: Acute (2) Delirium Current visit: Yes Status: Acute History of Present Illness Patient: new to practice Requesting Physician: Reji Glass MD Reason for consult: agitation psychosis History of present illness: Pt is a 52 yo ,, male,who presents for psychosis associated with acute intermittent delirium. Pt and sister were present during interview, pt requested sister to stay. Pt noted recent exacerbation of acute psychosis and confusion, during the day and especailly in the evenings. Pt did note he felt safe and comfortable on the unit. Pt denied any side effects to current medications. Pt was in agreement with current treatment plan. Pt noted that he is doing okay today. Pt noted he slept 2 hours broken night. Pt noted his appetite is its down. Pt rated his depression a 8, on a scale of zero to ten with ten being the worst and zero being none. Pt rate his anxiety a 8, on the same scale. Pt noted both auditory or visual hallucinations. "....some times they are bad." Pt denied any current thoughts to harm himself or anyone else. Pt denied HEP C, HIV, TBIs or Seizures. No TD noted, AIMS=0 Alcohol: sober [address]: denies any current tobacco: denies any current Caffeine: noted only a few every now and then. Assessment/Plan 1.Interval hx 2.Continue current medications 3.Review current labs 4.Pt had an opportunity to ask questions and discuss current treatment plan. 5.Supportive therapy was provided 6.Pt encouraged to consider group or individual therapy 7.Pt was in agreement with treatment plan. 8.Pt was educated on the risks benefits and side effects of current medications. 9. PT agreed to start risperidone 0.5 mg PO QAM and 1.0 mg PO QHS for acute psychosis Pt was educated on the risks benefits and side effects of current medications including no medications, pt was in agreement. 10. D/C quetiapine CC: Reji Glass MD Past Med Surg Social Fam HX - Past Medical History Medical history: cardiomyopathy, CHF, coronary artery disease, diabetes (Type II ), hyperlipidemia, hypertension, kidney stones, peripheral artery disease, renal disease (Stage IV), thyroid disease, other (Diabetic neuropathy) - Past Psychiatric History Psychiatric history: Reports: depression Family psychiatric history: Yes Family History of Suicide: None - Past Surgical History Surgical History: bariatric surgery, other (Left BKA, left upper extremity AVF, right subclavian vein dialysis catheter) - Social History Smoking Status: Never smoker Smokeless Tobacco Status: No Alcohol use: none Drug use: none - Family History Father Adopted: No Living Status: Hx Family Cardiac Disorders: Yes Hx Family Respiratory Disorders: Yes Hx Family Cancer: No Hx Family GI Disorders: No Hx Family Endocrine Disorder: No Hx Family Neuromuscular Disorders: No Hx Family Neurologic Disorders: No Hx Family HEENT Disorders: No Hx Family Autoimmune Disorders: No Medications & Allergies HYDROcodone/Acet 5/325 mg [[place] 5-325 mg] 1 tab PO BID PRN 07/21/17 [History] Aspirin [Lo-Dose Aspirin EC] 81 mg PO DAILY 03/26/18 [History] Calcitriol 0.5 mcg PO DAILY 03/26/18 [History] Carvedilol 12.5 mg PO BID 03/26/18 [History] Clopidogrel [Plavix] 75 mg PO DAILY 03/26/18 [History] Cyclobenzaprine [Flexeril] 10 mg PO BID PRN 03/26/18 [History] Ferric Citrate [Auryxia] 420 mg PO TID MDD 8 tablets 03/26/18 [History] Furosemide [Lasix] 40 mg PO BID 03/26/18 [History] Insulin LISPRO [HumaLOG] 5 - 10 unit SQ TIDWM 03/26/18 [History] Isosorbide MONOnitrate (24 HR) [Imdur] 30 mg PO DAILY 03/26/18 [History] L.acidoph,Paracasei, B.lactis [Probiotic] 1 cap PO DAILY 03/26/18 [History] Levothyroxine [Synthroid] 25 mcg PO DAILY 03/26/18 [History] Lisinopril [Zestril] 20 mg PO DAILY 03/26/18 [History] OxyCODONE Immed Rel [Roxicodone 10 MG] 10 mg PO Q6H PRN 03/26/18 [History] Ropinirole HCl [Requip] 4 mg PO HS 03/26/18 [History] Rosuvastatin [Crestor] 40 mg PO HS 03/26/18 [History] Vitamin B Complex [B Complex] 1 each PO DAILY 03/26/18 [History] buPROPion HCl [Zyban] 150 mg PO BID 03/26/18 [History] 3 Allergy/AdvReac Type Severity Reaction Status Date / Time No Known Allergies Allergy Verified 03/26/18 11:14 Review of Systems Constitutional: Denies: fever, chills, weakness, weight change Eyes: Denies: eye pain, vision change Ears, Nose, Throat: Denies: ear pain, throat pain, dental pain, hearing loss, congestion Cardiovascular: Denies: chest pain, palpitations, dyspnea on exertion Respiratory: Denies: cough, dyspnea, wheezes Gastrointestinal: Denies: abdominal pain, nausea, vomiting, diarrhea, constipation Genitourinary male: Denies: urgency, dysuria, frequency, genital lesions Musculoskeletal: Denies: joint swelling, joint pain Integumentary: Denies: rash, lesions, pruritus Neurological: Denies: headache, weakness, numbness, memory loss Psychiatric: Reports: depression, abnormal sleep pattern, auditory hallucinations, visual hallucinations, confusion, irritability Endocrine: Denies: fatigue, heat or cold intolerance Hematologic/Lymphatic: Denies: easy bruising, lymphadenopathy Allergic/Immunologic: Denies: urticaria, itchy eyes Psychiatry Exam - Constitutional Vitals: Temp Pulse Resp BP Pulse Ox 98.2 F 72 18 138/81 100 03/31/18 13:38 03/31/18 13:38 03/31/18 13:38 03/31/18 13:38 03/31/18 13:38 General appearance: age & developmentally appropriate, well-groomed, well- nourished - Musculoskeletal Gait: normal Station: relaxed Strength & Tone: normal for patient - Psychiatric Patient Orientation: Yes Person (Pt was well oriented at time of interview however when leaving noted he started to get confused.), Yes Time, Yes Place Level of alertness: Alert Behavior: calm, cooperative, anxious, agitated Psychomotor activity: Normal Eye Contact: Maintains Eye Contact Mood Description: Euthymic/stable, Anxious Affect description: congruent with mood, full range, anxious Speech Volume: Normal Speech pattern: normal rate, normal rhythm, normal tone, fluent, spontaneous Language & Vocabulary: consistent with education Thought Process: Linear, Goal Oriented, Disorganized (can be disorganized at times) Thought Content: No Suicidal ideation, No Homicidal ideation, No Overt delusions Perceptual Disturbances: Yes Auditory hallucinations, Yes Visual hallucinations Attention Span Ability: Capable of Focused Attention Memory Description: Grossly Intact Patient Reliability: Reliable Historian Fund of knowledge: Yes abstraction ability, Yes aware of current events Intelligence Estimate: Average Judgment: Limited Insight: Partial Results - Labs Labs: Laboratory Last Values WBC 6.5 K/mcL (4.3-11.1) 03/31/18 05:20 RBC 2.67 M/mcL (4.19-5.50) L 03/31/18 05:20 Hgb 8.4 g/dL (12.9-16.9) L 03/31/18 05:20 Hct 27.3 % (37.5-50.1) L 03/31/18 05:20 MCV 102.2 fL (83.0-100.0) H 03/31/18 05:20 MCH 31.5 pg (28.0-33.3) 03/31/18 05:20 MCHC 30.8 g/dL (31.6-35.5) L 03/31/18 05:20 RDW 17.2 % (11.5-14.5) H 03/31/18 05:20 Plt Count 117 K/mcL (140-400) L 03/31/18 05:20 MPV 10.2 fL (9.4-12.4) 03/31/18 05:20 Immature Gran % 0.3 % (0-4) 03/28/18 04:52 Seg Neutrophils % 82.4 % 03/28/18 04:52 Lymphocytes % 9.7 % 03/28/18 04:52 Monocytes % 7.5 % 03/28/18 04:52 Eosinophils % 0.0 % 03/28/18 04:52 Basophils % 0.1 % 03/28/18 04:52 Neutrophils # 8.4 K/mcL (1.6-8.9) 03/28/18 04:52 Lymphocytes # 1.0 K/mcL (0.6-4.6) 03/28/18 04:52 Monocytes # 0.8 K/mcL (0.0-1.3) 03/28/18 04:52 Eosinophils # 0.0 K/mcL (0.0-0.6) 03/28/18 04:52 Basophils # 0.0 K/mcL (0.0-0.2) 03/28/18 04:52 Nucleated RBCs/100 WBC 0.3 /100 WBC (0) H 03/28/18 04:52 PT 17.2 Seconds (9.4-12.1) H 03/30/18 15:13 INR 1.5 03/30/18 15:13 Sample Site R Radial 03/27/18 01:53 ABG pH 7.49 pH Units (7.32-7.45) H 03/27/18 01:53 ABG pCO2 35 mmHg (35-45) 03/27/18 01:53 ABG pO2 221 mmHg (85-104) H 03/27/18 01:53 ABG HCO3 26 mEq/L (21-27) 03/27/18 01:53 ABG Total CO2 28 mEq/L (20-26) H 03/27/18 01:53 ABG O2 Saturation 100 % (95-98) H 03/27/18 01:53 ABG Base Excess 3 mEq/L (-2 to 3) 03/27/18 01:53 Romario Test Positive 03/27/18 01:53 O2 Delivery Device Cannula 03/27/18 01:53 Inspired O2 60.0 (1-15=lpm [id number]=%) 03/27/18 01:53 Sodium 136 mEq/L (136-145) 03/31/18 05:20 Potassium 4.2 mEq/L (3.5-5.1) 03/31/18 05:20 Chloride 98 mEq/L (98-107) 03/31/18 05:20 Carbon Dioxide 25 mEq/L (23-29) 03/31/18 05:20 BUN 30 mg/dL (6-20) H 03/31/18 05:20 Creatinine 5.53 mg/dL (0.70-1.30) H 03/31/18 05:20 Est GFR ( Amer) 13 (> 60) L 03/31/18 05:20 Est GFR (Non-Af Amer) 11 (> 60) L 03/31/18 05:20 BUN/Creatinine Ratio 5 (6-26) L 03/31/18 05:20 Glucose 71 mg/dL (70-105) 03/31/18 05:20 POC Glucose 70 mg/dL (70-99) 03/31/18 13:36 Est Mean Plasma Glucose 128 mg/dl 03/26/18 19:32 Hemoglobin A1c 6.1 % (-5.6) H 03/26/18 19:32 Calculated Osmolality 287 (280-300) 03/31/18 05:20 Lactic Acid 2.0 mmol/L (0.5-2.2) 03/27/18 06:57 Calcium 8.4 mg/dL (8.6-10.3) L 03/31/18 05:20 Total Bilirubin 0.5 mg/dL (0.3-1.0) 03/27/18 01:53 AST 22 Units/L (13-39) 03/27/18 01:53 ALT 13 Units/L (7-52) 03/27/18 01:53 Alkaline Phosphatase 182 Units/L (34-104) H 03/27/18 01:53 Troponin I 0.03 ng/mL (< 0.04) 03/27/18 06:57 B-Natriuretic Peptide > 5000 pg/mL (Less than 100) H 03/27/18 02:26 Serum Total Protein 5.1 g/dL (6.4-8.9) L 03/27/18 01:53 Albumin 2.1 g/dL (3.5-5.7) L 03/27/18 01:53 Globulin 3.0 g/dL (2.4-3.5) 03/27/18 01:53 Albumin/Globulin Ratio 0.7 (1.1-2.2) L 03/27/18 01:53 Pleural RBC 0.040 M/mcL (0.000-0.002) H 03/31/18 13:09 Pleural Tot Nuc Cell 180 TNC/mcL (0-1000) 03/31/18 13:09 Stool Occult Blood Positive (Negative) A 03/27/18 02:25 Random Vancomycin 18 mcg/mL 03/31/18 05:20 Hep Bs Antigen Nonreactive (Nonreactive) 03/27/18 08:05 Hep Bs Antibody 162.00 mIU/mL 03/27/18 08:05 - Impressions Impressions Chest CT 03/30/18 08:30 IMPRESSION: 1. Moderate bilateral pleural effusions, partially loculated on the right and mildly decreased on the left. 2. Persistent but decreased air within the pleural fluid on the right. This may be related to prior thoracentesis or chest tube placement. Correlation with the patient's history is suggested as infection cannot entirely be excluded. 3. A 4.2 cm masslike lesion in the posterior right pleural fluid, which appears somewhat smaller from the previous exam. This is most likely due to a hematoma or a pleural based mass. 4. Compressive bilateral lower lobe compressive atelectasis with possible superimposed pneumonia, similar to the previous exam. High density within the right lower lobe bronchi is concerning for prior aspiration. 5. Extensive body wall edema and small volume abdominal ascites. The patient is third-spacing. D/ / 03/30/2018 10:32:43 [facility] Interpreting Provider: Lauri French MD Thoracentesis 03/31/18 00:00 IMPRESSION: Successful ultrasound guided thoracentesis. D/ / Dylan Altamirano MD / Dylan Altamirano MD Interpreting Provider: Dylan Altamirano MD Thoracentesis 03/31/18 07:00 IMPRESSION: Successful ultrasound guided thoracentesis. D/ / Dylan Altamirano MD / Dylan Altamirano MD Interpreting Provider: Dylan Altamirano MD Chest X-Ray 03/31/18 13:10 IMPRESSION: Large right pleural effusion. No pneumothorax identified D/ / Dk Dinh MD / Dk Dinh MD Interpreting Provider: Dk Dinh MD Consult Discharge Plan - Plan Additional Instructions: 1. PT agreed to start risperidone 0.5 mg PO QAM and 1.0 mg PO QHS for acute psychosis Pt was educated on the risks benefits and side effects of current medications including no medications, pt was in agreement. 2. D/C quetiapine Referrals: Shakira Diaz, LOUISA [Primary Care Provider] -
[2018-03-31 17:18] LABS: Appearance of Pleural Fl Bloody (Clear)
[2018-03-31] MEDS ORDERED: Aminoglycoside Consult 1 EACH MC ONE (17:31)
[2018-03-31] MEDS: risperiDONE 1 MG TABLET PO SCH (21:48)
[2018-03-31] MEDS: rOPINIRole 1 MG TABLET PO SCH (21:48)
[2018-04-01] MEDS: *HR* Heparin 5,000 UNIT/ML VIAL SQ SCH ×3 (00:43→17:56)
[2018-04-01 03:41] LABS: Hematocrit 27.9 % (37.5-50.1); Hemoglobin 8.3 g/dL (12.9-16.9); Mean Corpuscular HGB Conc 29.7 g/dL (31.6-35.5); Mean Corpuscular Hemoglobin 30.7 pg (28.0-33.3); Mean Corpuscular Volume 103.3 fL (83.0-100.0); Mean Platelet Volume 10.7 fL (9.4-12.4); Platelet Count 113 K/mcL (140-400); Red Cell Distribution Width 17.4 % (11.5-14.5)
[2018-04-01 04:00] LABS: Calcium 8.4 mg/dL (8.6-10.3); Potassium 3.7 mEq/L (3.5-5.1)
[2018-04-01] MEDS: Levothyroxine 25 MCG TABLET PO SCH (06:06)
[2018-04-01] MEDS: Insulin LISPRO 300 UNITS/3 ML VIAL SQ SCH ×4 (09:07→21:16)
--- NOTE | 2018-04-01 10:01 | Nephrology Progress Note ---
Date of Encounter: 04/01/18 Time of Encounter: 10:00 - Assessment and Plan (1) Acute encephalopathy Current Visit: Yes Status: Acute Resolved. s/p psych consult with risperdal started instead of seroquel (2) Pleural effusion Current Visit: Yes Status: Acute s/p thoracentesis bilat (3) Anemia in chronic kidney disease Current Visit: Yes Status: Chronic Hgb at 8.3, will monitor. EPO on outpatient HD with goal hgb of 10 and above Qualifiers: Chronic kidney disease stage: on chronic dialysis Qualified Code(s): N18.6 - End stage renal disease; D63.1 - Anemia in chronic kidney disease; Z99.2 - Dependence on renal dialysis (4) ESRD (end stage renal disease) Current Visit: Yes Status: Chronic s/p HD yesterday, next planned on tuesday If being discharged to [facility] instead of [facility] in [place], will need HD unit changed from [place] to [place]. Nursing staff made aware and will contact social services manager Subjective Principal diagnosis: ESRD Interval history: Interim events noted, s/p thoracentasis and HD yesterday. Pt seen and examined back to baseline mental status, feels better Objective - Vital Signs Vital signs: Vital Signs Temp Pulse Resp BP Pulse Ox 04/01/18 06:40 97.8 F 77 18 122/85 96 04/01/18 03:27 97.8 F 78 20 129/92 100 03/31/18 21:43 97.6 F 121 18 128/88 99 03/31/18 16:42 97.7 F 76 16 127/88 100 03/31/18 13:38 98.2 F 72 18 138/81 100 03/31/18 12:28 97.9 F 18 132/95 03/31/18 12:10 125/93 03/31/18 11:55 121/91 03/31/18 11:40 125/92 03/31/18 11:25 132/90 03/31/18 11:10 138/93 03/31/18 10:55 135/97 03/31/18 10:40 136/98 03/31/18 10:25 139/95 03/31/18 10:10 146/97 Intake and Output 03/31/18 04/01/18 04/01/18 23:59 07:59 15:59 Intake Total 240 / 240 Balance 240 / 240 Intake: Oral 240 / 240 Other: Meal Dinner Percent of Meal Consumed 75% Weight 109.1 kg Blood Glucose* 127 139 Patient Weight 04/01/18 23:59 Weight 109.1 kg - General Appearance General appearance: Present: chronically ill (NAD) EENT: Present: ATNC, mucous membranes moist Neck: Present: no JVD, supple Additional Comments: good areation ant bilat Cardiology: Present: no edema (L BKA), normal S1, normal S2 Dialysis Vascular Access: Arteriovenous Fistula thrill: Yes bruit: Yes Gastrointestinal: Present: no tenderness, no guarding Integumentary: Present: warm and dry Neurologic: Present: no focal deficit Musculoskeletal: Present: no deformities Psychiatric: Present: mood/affect appropriate, cooperative - Lab 04/02/18 07:33 04/02/18 07:33 Most recent lab results ABG pH 7.49 pH Units (7.32-7.45) H 03/27/18 01:53 ABG pCO2 35 mmHg (35-45) 03/27/18 01:53 ABG pO2 221 mmHg (85-104) H 03/27/18 01:53 ABG HCO3 26 mEq/L (21-27) 03/27/18 01:53 ABG O2 Saturation 100 % (95-98) H 03/27/18 01:53 Calcium 8.4 mg/dL (8.6-10.3) L 04/01/18 03:20 Consult Discharge Plan - Plan Additional Instructions: 1. PT agreed to start risperidone 0.5 mg PO QAM and 1.0 mg PO QHS for acute psychosis Pt was educated on the risks benefits and side effects of current medications including no medications, pt was in agreement. 2. D/C quetiapine Referrals: Shakira Diaz, CLINICAL OPERATIONS MANAGER [Primary Care Provider] -
[2018-04-01] MEDS: Furosemide 40 MG/4 ML VIAL IVP SCH ×2 (10:05→17:56)
[2018-04-01] MEDS: Vitamin B Complex/Vit C/Vit E 1 EACH TABLET PO SCH (10:06)
[2018-04-01] MEDS: Isosorbide MONOnitrate (24 HR) 30 MG TAB.ER.24H PO SCH (10:06)
[2018-04-01] MEDS: risperiDONE 0.25 MG TABLET PO SCH (10:06)
[2018-04-01] MEDS: BuPROPion SR (12 HR) 150 MG TABLET PO SCH ×2 (10:06→20:39)
[2018-04-01] MEDS: Aspirin Enteric Coated 81 MG Tablet PO SCH (10:06)
--- NOTE | 2018-04-01 10:44 | Internal Med Progress Note ---
Hospitalist Progress Note - Encounter Date of Encounter: 04/01/18 Time of Encounter: 10:30 - Subjective Interval History: Patient seen and examined this morning. Feeling better. Had better sleep. - Exam Vitals: Temp Pulse Resp BP Pulse Ox 97.8 F 77 18 122/85 96 04/01/18 06:40 04/01/18 06:40 04/01/18 06:40 04/01/18 06:40 04/01/18 06:40 Exam: CONSTITUTIONAL: More alert. EYES Clear sclerae, bilateral pupils are equal, reactive to light and accommodation. Extraocular movements are intact RESPIRATORY: No accessory muscle use, bilateral basilar crackles to auscultation , no wheezing. Decreased air entry on Rt. CARDIOVASCULAR: Regular heart rate, normal S1 and S2, no murmurs GASTROINTESTINAL: bowel sounds present, soft, no tenderness. No hepatosplenomegaly. MUSCULOSKELETAL: Joints in normal range of motion, no clubbing, no edema, no cyanosis. Left BKA. Leg edema decreased NEUROLOGIC: CN II to XII are grossly intact, no focal neurological deficit. Deep tendon reflexes 2+ bilaterally. PSYCHIATRIC: Oriented x3. Reports some hallucinations. Occasionally with bizzare answers to simple questions. SKIN: Skin warm and dry. Had fall with some bruise and scar on Lt and Rt hand. - Summary of Assessment and Plan Summary of Assessment and Plan: CT finding of Pneumonia - Initially started on possible gram-negative bacterial pneumonia due to recent admission. - Was treated with on Vancomycin and Zosyn and ID consulted. No urine sample could be obtained for strep and legionella ag. - Unlikely to have pneumonia clinically. Vancomycin and Zosyn stopped. - s/p diagnostic tap from right(25cc) bloody with elevated ldh, low protein, pH of 9,unlikely empyema. therapeutic tap on Left(800cc). - ID recommendation appreciated. Pleural effusion - Recent 2L bloody pleural fluid taken out at [facility]. - Repeat CT with Loculated effusion. - CT surgeon consulted. Recommended IR with tPA may not be successful. Currently not stable for surgical intervention. - s/p IR thorocentesis as above Acute encephalopathy - Unclear cause - Appears Metabolic nature. CT head negative. - psychiatry recommendation appreciated. Diagnosis of acute psychosis. Started on resperidone and Quetiapine stopped. 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 - Nephrology recommendation appreciated. CHF and Severe ischemic CAD - EF 20-25% at [facility]. Was being evaluated outpatient for surgical evaluation. - continue Lasix, ASA, BB, lisinopril and continue HD. Off plavix per cardiology note from [facility]. - Was discharged from [facility] with lifevest. Ask family to bring lifevest. 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 - c/w diuresis and ultrafiltration. Anemia - Macrocystic. Likely related to ESRD. - Currently at baseline. No active bleeding. However occult blood positive. has history of hemorrhoids. Colonoscopy on 08/27 was normal. Monitor for now. - Will consider GI consult if further drop in Hb. Lower threshold to transfuse given h/o severe CAD. Diarrhea - Resolved mostly - recent C. difficile colitis s/p treatment. Now testing negative. - Recent Cdiff treated at [facility] - Improving. Will consider loperamide for symtomatic relief. Chest pain - resolved, negative trop times 3. Back pain - XR showed L-spine DJD. No acute pathology noticed. Chronic respiratory failure with hypoxia - c/w 2 L NC at home Dyspnea - multi-factorial addressed as above Essential hypertension - c/w lisinopril Diabetes mellitus - SSI DVT prophylaxis - heaprin SC - Time Spent with Patient Total time spent is greater than 50% in coordination of care (as documented) at patient's floor/unit and/or counseling patient: Internal Medicine: Result - Labs CBC & Chem 7: 04/01/18 03:20 04/01/18 03:20 Labs: Short CBC 04/01/18 Range/Units 03:20 WBC 7.1 (4.3-11.1) K/mcL Hgb 8.3 L (12.9-16.9) g/dL Hct 27.9 L (37.5-50.1) % Plt Count 113 L (140-400) K/mcL BMP 04/01/18 03:20 Sodium 136 Potassium 3.7 Chloride 97 L Carbon Dioxide 28 BUN 19 Creatinine 4.25 H Glucose 91 Calcium 8.4 L - ABG Interpretation ABG results: ABG ABG pH 7.49 pH Units (7.32-7.45) H 03/27/18 01:53 ABG pCO2 35 mmHg (35-45) 03/27/18 01:53 ABG pO2 221 mmHg (85-104) H 03/27/18 01:53 ABG O2 Saturation 100 % (95-98) H 03/27/18 01:53 PT/INR, D-dimer PT 17.2 Seconds (9.4-12.1) H 03/30/18 15:13 - Impressions Impressions Thoracentesis 03/31/18 00:00 IMPRESSION: Successful ultrasound guided thoracentesis. D/ / Dylan Altamirano MD / Dylan Altamirano MD Interpreting Provider: Dylan Altamirano MD Thoracentesis 03/31/18 07:00 IMPRESSION: Successful ultrasound guided thoracentesis. D/ / Dylan Altamirano MD / Dylan Altamirano MD Interpreting Provider: Dylan Altamirano MD Chest X-Ray 03/31/18 13:10 IMPRESSION: Large right pleural effusion. No pneumothorax identified D/ / Dk Dinh MD / Dk Dinh MD Interpreting Provider: Dk Dinh MD Consult Discharge Plan - Plan Additional Instructions: 1. PT agreed to start risperidone 0.5 mg PO QAM and 1.0 mg PO QHS for acute psychosis Pt was educated on the risks benefits and side effects of current medications including no medications, pt was in agreement. 2. D/C quetiapine Referrals: Shakira Diaz, GYM INSTRUCTOR [Primary Care Provider] -
[2018-04-01 13:28] LABS: Fluid Source for Albumin PLEURAL FLUID
[2018-04-01] MEDS: rOPINIRole 1 MG TABLET PO SCH (20:39)
[2018-04-01] MEDS: risperiDONE 1 MG TABLET PO SCH (20:39)
[2018-04-02] MEDS: *HR* Heparin 5,000 UNIT/ML VIAL SQ SCH ×3 (00:13→16:10)
[2018-04-02] MEDS: Levothyroxine 25 MCG TABLET PO SCH (05:43)
[2018-04-02] MEDS: Insulin LISPRO 300 UNITS/3 ML VIAL SQ SCH ×3 (07:32→16:10)
[2018-04-02 08:19] LABS: Hematocrit 28.1 % (37.5-50.1); Hemoglobin 8.5 g/dL (12.9-16.9); Mean Corpuscular HGB Conc 30.2 g/dL (31.6-35.5); Mean Corpuscular Volume 102.6 fL (83.0-100.0); Mean Platelet Volume 10.7 fL (9.4-12.4); Platelet Count 105 K/mcL (140-400); Red Blood Count 2.74 M/mcL (4.19-5.50); Red Cell Distribution Width 17.4 % (11.5-14.5)
[2018-04-02 08:20] LABS: Calcium 8.7 mg/dL (8.6-10.3); Potassium 4.2 mEq/L (3.5-5.1)
[2018-04-02] MEDS: Furosemide 40 MG/4 ML VIAL IVP SCH (08:28)
[2018-04-02] MEDS: Aspirin Enteric Coated 81 MG Tablet PO SCH (08:28)
[2018-04-02] MEDS: risperiDONE 0.25 MG TABLET PO SCH (08:28)
[2018-04-02] MEDS: Vitamin B Complex/Vit C/Vit E 1 EACH TABLET PO SCH (08:28)
[2018-04-02] MEDS: BuPROPion SR (12 HR) 150 MG TABLET PO SCH (08:29)
[2018-04-02] MEDS: Isosorbide MONOnitrate (24 HR) 30 MG TAB.ER.24H PO SCH (08:29)
[2018-04-02] MEDS: *HR* HYDROcodone/Acet 5/325 mg TABLET PO PRN (08:49)
--- NOTE | 2018-04-02 09:57 | Internal Med Progress Note ---
Hospitalist Progress Note - Encounter Date of Encounter: 04/02/18 Time of Encounter: 09:54 - Subjective Interval History: Patient seen and examined this morning. Feeling better. - Exam Vitals: Temp Pulse Resp BP Pulse Ox 97.8 F 80 19 145/84 100 04/02/18 07:28 04/02/18 07:28 04/02/18 07:28 04/02/18 07:28 04/02/18 07:28 Exam: CONSTITUTIONAL: More alert. RESPIRATORY: No accessory muscle use, bilateral basilar crackles to auscultation , no wheezing. Decreased air entry on Rt. CARDIOVASCULAR: Regular heart rate, normal S1 and S2, no murmurs GASTROINTESTINAL: bowel sounds present, soft, no tenderness. No hepatosplenomegaly. MUSCULOSKELETAL: Joints in normal range of motion, no clubbing, no edema, no cyanosis. Left BKA. Leg edema decreased NEUROLOGIC: CN II to XII are grossly intact, no focal neurological deficit. PSYCHIATRIC: Oriented x3. denies hallucinations. SKIN: Skin warm and dry. Had fall with some bruise and scar on Lt and Rt hand. 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 - Nephrology recommendation appreciated. - Awaiting placement. CT finding of Pneumonia - Initially started on possible gram-negative bacterial pneumonia due to recent admission. - Was treated with on Vancomycin and Zosyn and ID consulted. No urine sample could be obtained for strep and legionella ag. - Unlikely to have pneumonia clinically. Vancomycin and Zosyn stopped. - s/p diagnostic tap from right(25cc) bloody with elevated ldh, low protein, pH of 9,unlikely empyema. therapeutic tap on Left(800cc). - ID recommendation appreciated. Pleural effusion - Recent 2L bloody pleural fluid taken out at [facility]. - Repeat CT with Loculated effusion. - CT surgeon consulted. Recommended IR with tPA may not be successful. Currently not stable for surgical intervention. - s/p IR thorocentesis as above Acute encephalopathy - Unclear cause - Appears Metabolic nature. CT head negative. - psychiatry recommendation appreciated. Diagnosis of acute psychosis. Started on resperidone and Quetiapine stopped. CHF and Severe ischemic CAD - EF 20-25% at [facility]. Was being evaluated outpatient for surgical evaluation. - continue Lasix, ASA, BB, lisinopril and continue HD. Off plavix per cardiology note from [facility]. - Was discharged from [facility] with lifevest. Has lifevest at bedside. Pulmonary edema - from acute on chronic Combined systolic and diastolic CHF exacerbation - resolved with diuresis and ultrafiltration Anemia - Macrocystic. Likely related to ESRD. - Currently at baseline. No active bleeding. However occult blood positive. has history of hemorrhoids. Colonoscopy on 08/27 was normal. Monitor for now. - Will consider GI consult if further drop in Hb. Lower threshold to transfuse given h/o severe CAD. Diarrhea - Resolved mostly - recent C. difficile colitis s/p treatment. Now testing negative. - Recent Cdiff treated at [facility] - Improving. Will consider loperamide for symtomatic relief. Chest pain - resolved, negative trop times 3. Back pain - XR showed L-spine DJD. No acute pathology noticed. Chronic respiratory failure with hypoxia - c/w 2 L NC at home Dyspnea - multi-factorial addressed as above Essential hypertension - c/w lisinopril Diabetes mellitus - SSI DVT prophylaxis - heaprin SC - Time Spent with Patient Total time spent is greater than 50% in coordination of care (as documented) at patient's floor/unit and/or counseling patient: Internal Medicine: Result - Labs CBC & Chem 7: 04/02/18 07:33 04/02/18 07:33 Labs: Short CBC 04/02/18 Range/Units 07:33 WBC 7.3 (4.3-11.1) K/mcL Hgb 8.5 L (12.9-16.9) g/dL Hct 28.1 L (37.5-50.1) % Plt Count 105 L (140-400) K/mcL BMP 04/02/18 07:33 Sodium 136 Potassium 4.2 Chloride 97 L Carbon Dioxide 29 BUN 28 H Creatinine 5.34 H Glucose 104 Calcium 8.7 - ABG Interpretation ABG results: ABG ABG pH 7.49 pH Units (7.32-7.45) H 03/27/18 01:53 ABG pCO2 35 mmHg (35-45) 03/27/18 01:53 ABG pO2 221 mmHg (85-104) H 03/27/18 01:53 ABG O2 Saturation 100 % (95-98) H 03/27/18 01:53 PT/INR, D-dimer PT 17.2 Seconds (9.4-12.1) H 03/30/18 15:13 Consult Discharge Plan - Plan Additional Instructions: 1. PT agreed to start risperidone 0.5 mg PO QAM and 1.0 mg PO QHS for acute psychosis Pt was educated on the risks benefits and side effects of current medications including no medications, pt was in agreement. 2. D/C quetiapine Referrals: Shakira Diaz YOUTH CARE SPECIALIST [Primary Care Provider] -
--- NOTE | 2018-04-02 12:05 | Nephrology Progress Note ---
Date of Encounter: 04/02/18 Time of Encounter: 12:00 - Assessment and Plan (1) Acute encephalopathy Current Visit: Yes Status: Acute Resolved (2) Pleural effusion Current Visit: Yes Status: Acute s/p thoracentesis bilat (3) Anemia in chronic kidney disease Current Visit: Yes Status: Chronic Hgb at 8.5, will monitor. EPO on outpatient HD with goal hgb of 10 and above Qualifiers: Chronic kidney disease stage: on chronic dialysis Qualified Code(s): N18.6 - End stage renal disease; D63.1 - Anemia in chronic kidney disease; Z99.2 - Dependence on renal dialysis (4) ESRD (end stage renal disease) Current Visit: Yes Status: Chronic s/p HD tuesday, next planned on tuesday [place] [facility] Needs transport to [facility] till switched to [facility] unit while in ECF; [facility] Subjective Principal diagnosis: ESRD Interval history: Pt seen and examined with no new complaints. Discharge planned for today per primary team but HD units not changed from [facility] to [facility]. Spoke with secondary social studies teacher quality control manager to ensure transportation to [facility] tomorrow Objective - Vital Signs Vital signs: Vital Signs Temp Pulse Resp BP Pulse Ox 04/02/18 11:17 97.6 F 72 18 119/87 100 04/02/18 07:28 97.8 F 80 19 145/84 100 04/02/18 04:09 97.3 F L 79 16 128/89 100 04/02/18 00:36 97.8 F 79 18 110/70 96 04/01/18 20:45 97 F L 72 17 108/75 97 04/01/18 16:02 97.8 F 72 16 107/82 100 Intake and Output 04/01/18 04/02/18 04/02/18 23:59 07:59 15:59 Intake Total 740 / 740 400 / 400 Balance 740 / 740 400 / 400 Intake: Oral 740 / 740 400 / 400 Other: Meal Dinner Percent of Meal Consumed 25% Stool Size Moderate Moderate Small Stool Consistency liquid liquid loose soft soft Stool Characteristics Normal for Patient Stool Color Brown Brown Brown Green Green # Bowel Movements 1 1 1 Weight 107.4 kg Blood Glucose* 84 105 Patient Weight 04/02/18 23:59 Weight 107.4 kg - General Appearance General appearance: Present: chronically ill EENT: Present: ATNC, mucous membranes moist Neck: Present: no JVD, supple Additional Comments: good areation ant bilat Cardiology: Present: no edema (L BKA), normal S1, normal S2 Dialysis Vascular Access: Arteriovenous Fistula thrill: Yes bruit: Yes Gastrointestinal: Present: no tenderness, no guarding Integumentary: Present: warm and dry Neurologic: Present: no focal deficit Musculoskeletal: Present: no deformities Psychiatric: Present: mood/affect appropriate - Lab 04/02/18 07:33 04/02/18 07:33 Most recent lab results ABG pH 7.49 pH Units (7.32-7.45) H 03/27/18 01:53 ABG pCO2 35 mmHg (35-45) 03/27/18 01:53 ABG pO2 221 mmHg (85-104) H 03/27/18 01:53 ABG HCO3 26 mEq/L (21-27) 03/27/18 01:53 ABG O2 Saturation 100 % (95-98) H 03/27/18 01:53 Calcium 8.7 mg/dL (8.6-10.3) 04/02/18 07:33 Consult Discharge Plan - Plan Additional Instructions: 1. PT agreed to start risperidone 0.5 mg PO QAM and 1.0 mg PO QHS for acute psychosis Pt was educated on the risks benefits and side effects of current medications including no medications, pt was in agreement. 2. D/C quetiapine Referrals: Shakira Diaz, [employer] [Primary Care Provider] -
--- NOTE | 2018-04-02 13:33 | Discharge Summary ---
- NOTES TO OUTPATIENT PROVIDER Notes to Outpatient Provider: Need to be compliant with his dialysis. Needs to wear LifeVest which he is prescribed and follow at [facility] given severe coronary artery disease and CHF. Orders not resulted at time of discharge: Pending orders 03/30/18 14:43 Albumin,Body Fluid Routine 03/30/18 14:45 Cytology Other [PTH] Routine 03/30/18 14:58 Cytology [PTH] Routine 04/02/18 10:18 Culture,Body Fluid [RM] Stat Date of Encounter: 04/02/18 Time of Encounter: 13:23 Hospital course: Mr. Bruno is a 52 year old male of end-stage renal disease, diabetes, hypertension and systolic CHF came with the chest pain shortness of breath and back pain. 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 He also recently had right-sided bloody effusion tapped and had a chest tube placed at [facility]. Patient was started on treatment for hospital-acquired pneumonia with vancomycin and Zosyn. CT chest showed persistent right loculated effusion and left sided moderate effusion which did not resolve with aggressive diuresis and aggressive ultrafiltration. Patient had about 13 L of ultrafiltration. However the effusion did not resolve. Patient had a CT surgeon evaluated according to him given the comorbidities no surgical intervention was done. IR guided drain of right loculated fluid was done however it was complex adhesion and 20/25 cc were drawn. Head therapeutic left-sided effusion drained about 800 mL. Studies from right tap did not show empyema. ID followed the patient. Or if his clinical course it was deemed that patient's CT findings were not from pneumonia. Antibiotics were stopped. Received antibiotics for 6 days. Patient did well off antibiotics. No cultures were positive. Additionally during the course patient had the acute encephalopathy with hallucinations as well as maintaining sleep cycle. CT had was negative. Patient was diagnosed with acute psychosis by psychiatry and was started on risperidone and his quetiapine was stopped. Patient mentation improved after he had somewhat good sleep for 2 days. Altered Mentation was thought to be due to metabolic in origin. Patient initially had diarrhea which resolved later on. Patient recently had treatment for C. difficile. Repeat testing was negative. Patient' s chest pain was deemed not related to ACS. Patient's presentation was likely due to fluid overload. Patient would be discharged to [facility] instead of [facility] where he was before. Arrangements will be made for him to go for dialysis to [place] until dialysis is set up in [place]. Patient is discharged on new medication risperidone and his home quetiapine he stopped - Time Spent with Patient Total time spent providing and/or coordinating discharge services: Greater than 30 minutes - Discharge Medications Prescriptions: risperiDONE [RisperDAL] 1 mg PO HS 30 Days #30 tablet risperiDONE [RisperDAL] 0.5 mg PO DAILY 30 Days #30 tablet Home Medications: HYDROcodone/Acet 5/325 mg [[place] 5-325 mg] 1 tab PO BID PRN 07/21/17 [History] Aspirin [Lo-Dose Aspirin EC] 81 mg PO DAILY 03/26/18 [History] Calcitriol 0.5 mcg PO DAILY 03/26/18 [History] Carvedilol 12.5 mg PO BID 03/26/18 [History] Clopidogrel [Plavix] 75 mg PO DAILY 03/26/18 [History] Ferric Citrate [Auryxia] 420 mg PO TID MDD 8 tablets 03/26/18 [History] Furosemide [Lasix] 40 mg PO BID 03/26/18 [History] Insulin LISPRO [HumaLOG] 5 - 10 unit SQ TIDWM 03/26/18 [History] Isosorbide MONOnitrate (24 HR) [Imdur] 30 mg PO DAILY 03/26/18 [History] L.acidoph,Paracasei, B.lactis [Probiotic] 1 cap PO DAILY 03/26/18 [History] Levothyroxine [Synthroid] 25 mcg PO DAILY 03/26/18 [History] Lisinopril [Zestril] 20 mg PO DAILY 03/26/18 [History] OxyCODONE Immed Rel [Roxicodone 10 MG] 10 mg PO Q6H PRN 03/26/18 [History] Ropinirole HCl [Requip] 4 mg PO HS 03/26/18 [History] Rosuvastatin [Crestor] 40 mg PO HS 03/26/18 [History] Vitamin B Complex [B Complex] 1 each PO DAILY 03/26/18 [History] buPROPion HCl [Zyban] 150 mg PO BID 03/26/18 [History] risperiDONE [RisperDAL] 0.5 mg PO DAILY 30 Days #30 tablet 04/02/18 [Rx] risperiDONE [RisperDAL] 1 mg PO HS 30 Days #30 tablet 04/02/18 [Rx] Allergies/Adverse Reactions: 3 Allergy/AdvReac Type Severity Reaction Status Date / Time No Known Allergies Allergy Verified 03/26/18 11:14 Date of admission: 03/26/18 18:43 Primary care physician: Shakira Diaz CNP Consults: 03/26/18 18:41 Consult to Nurse Navigator [CONS] Routine Comment: 03/26/18 18:46 Consult to Occupational Therapy [CONS] Routine Comment: Evaluate, develop and implement POC Reason for Consult: weakness Does patient have active BEDREST order?: No Is patient medically & hemodynamically stable?: Yes Patient assessed for mobility or mobilized this visit?: Yes Consult to Physical Therapy [CONS] Routine Comment: Evaluate, develop and implement POC Reason for Consult: SNF? Does patient have active BEDREST order?: No Is patient medically & hemodynamically stable?: Yes Patient assessed for mobility or mobilized this visit?: Yes Consult to Physician [CONS] Routine Consulting Provider: Jaylan Rosales Reason for Consult: ESRD Call Completed: Yes 03/26/18 18:51 Consult to Nephrology [CONS] Routine Consulting Provider: Kidney Nola/EZEKIEL/ALIZA/KIRBY Reason for Consult: ESRD Call Completed: Yes 03/27/18 07:15 Consult to Dialysis [CONS] ONCE 03/27/18 11:49 Consult to Vegetable Vendor [CONS] Routine Reason for SW Consult: Needs transport setup for HD 03/28/18 06:30 Consult to Dialysis [CONS] ONCE 03/28/18 15:50 Consult to Cardiothoracic Surgery [CONS] Routine Consulting Provider: Cardiothoracic Surgery [place] Reason for Consult: loculated pleural effusion Call Completed: Yes 03/29/18 09:30 Consult to Dialysis [CONS] ONCE 03/30/18 10:18 Consult to Infectious Diseases [CONS] Routine Consulting Provider: Infectious Disease [place] Reason for Consult: Sepsis Time Notified: 10:18 Call Completed: Yes 03/31/18 07:45 Consult to Dialysis [CONS] ONCE 03/31/18 10:25 Consult to Psychiatry [CONS] Routine Consulting Provider: Psychiatry [place] Reason consult: Agitation Psychosis Discharging clinician: Reji Glass - Constitutional Vitals: Temp Pulse Resp BP Pulse Ox 97.6 F 72 18 119/87 100 04/02/18 11:17 04/02/18 11:17 04/02/18 11:17 04/02/18 11:17 04/02/18 11:17 General appearance: Present: A&O X 3, pleasant, obese Exam: CONSTITUTIONAL: More alert. RESPIRATORY: No accessory muscle use, bilateral basilar crackles to auscultation , no wheezing. Decreased air entry on Rt. CARDIOVASCULAR: Regular heart rate, normal S1 and S2, no murmurs GASTROINTESTINAL: bowel sounds present, soft, no tenderness. No hepatosplenomegaly. MUSCULOSKELETAL: Joints in normal range of motion, no clubbing, no edema, no cyanosis. Left BKA. Leg edema decreased NEUROLOGIC: CN II to XII are grossly intact, no focal neurological deficit. PSYCHIATRIC: Oriented x3. denies hallucinations. SKIN: Skin warm and dry. Had fall with some bruise and scar on Lt and Rt hand. - Patient Status Disposition: Transfer SNF Condition: Fair Functional capacity at discharge: wheelchair bound Overall status at discharge: patient is back to baseline - Discharge Instructions Follow Up With: Shakira Diaz CNP [Primary Care Provider] - Mario Dennis MD [Partnered Physician] - Additional Instructions: 1. PT agreed to start risperidone 0.5 mg PO QAM and 1.0 mg PO QHS for acute psychosis Pt was educated on the risks benefits and side effects of current medications including no medications, pt was in agreement. 2. D/C quetiapine - Diet and Activity Activity: as per physical therapy
--- NOTE | 2018-04-02 15:07 | Physician Discharge Referral ---
ExtendedCare Referral Info Transfer To: SNF Institutional Level of Care: Skilled Prognosis: Poor Aware of Diagnosis: Patient, Family - Transfer Medications Prescriptions: risperiDONE [RisperDAL] 1 mg PO HS 30 Days #30 tablet risperiDONE [RisperDAL] 0.5 mg PO DAILY 30 Days #30 tablet Home Medications: HYDROcodone/Acet 5/325 mg [[place] 5-325 mg] 1 tab PO BID PRN 07/21/17 [History] Aspirin [Lo-Dose Aspirin EC] 81 mg PO DAILY 03/26/18 [History] Calcitriol 0.5 mcg PO DAILY 03/26/18 [History] Carvedilol 12.5 mg PO BID 03/26/18 [History] Clopidogrel [Plavix] 75 mg PO DAILY 03/26/18 [History] Ferric Citrate [Auryxia] 420 mg PO TID MDD 8 tablets 03/26/18 [History] Furosemide [Lasix] 40 mg PO BID 03/26/18 [History] Insulin LISPRO [HumaLOG] 5 - 10 unit SQ TIDWM 03/26/18 [History] Isosorbide MONOnitrate (24 HR) [Imdur] 30 mg PO DAILY 03/26/18 [History] L.acidoph,Paracasei, B.lactis [Probiotic] 1 cap PO DAILY 03/26/18 [History] Levothyroxine [Synthroid] 25 mcg PO DAILY 03/26/18 [History] Lisinopril [Zestril] 20 mg PO DAILY 03/26/18 [History] OxyCODONE Immed Rel [Roxicodone 10 MG] 10 mg PO Q6H PRN 03/26/18 [History] Ropinirole HCl [Requip] 4 mg PO HS 03/26/18 [History] Rosuvastatin [Crestor] 40 mg PO HS 03/26/18 [History] Vitamin B Complex [B Complex] 1 each PO DAILY 03/26/18 [History] buPROPion HCl [Zyban] 150 mg PO BID 03/26/18 [History] risperiDONE [RisperDAL] 0.5 mg PO DAILY 30 Days #30 tablet 04/02/18 [Rx] risperiDONE [RisperDAL] 1 mg PO HS 30 Days #30 tablet 04/02/18 [Rx] Allergies/Adverse Reactions: 3 Allergy/AdvReac Type Severity Reaction Status Date / Time No Known Allergies Allergy Verified 03/26/18 11:14 - Respiratory Orders Oxygen / L per min (3-4) Smoking Cessation: Smoking cessation has been advised. For more information, call the [employer] Tobacco Quit Line at 2-884-PXCS-NOW. - Advance Directives Code Status: DNR-Arrest/Don't Intubate - Mobility Orders Chair - Rehabiliation Orders Rehab Potential: Fair Rehab Orders: Evaluation for Physical Therapy - Diet Orders Renal CERTIFICATION: I certify that the transfer of the above named patient to an Extended Care Facility is necessary for the continuing treatment of the diagnosis listed. The above information is true and accurate reflection of patient's current condition. Confidential - Redisclosure prohibited without a patient's written consent.
[2018-04-02 15:11] VITALS: BP 125/92
== END 2018-04-02 17:32 | DRG 291 ==
LOC: 2ANU → SUATTDRO 18:43 → 2ANU 03-30 02:43
PROVIDERS: ADMIT Student in an Organized Health Care Education/Training Program; ATTEND Internal Medicine

== ENCOUNTER 2018-05-01 18:32 | Observation (INO) ==
[2018-05-01] MEDS ORDERED: Furosemide 40 MG/4 ML VIAL IVP ONE (19:19)
--- NOTE | 2018-05-01 19:44 | Emergency Department Note ---
Disposition Clinical Impression: Renal anasarca Disposition: Admitted As Inpatient Condition: Fair Time of Disposition: 01:11 General Adult HPI - General Chief complaint: ED Shortness of Breath/Dyspnea Stated complaint: SOB Time Seen by Provider: 05/01/18 19:02 Source: patient Mode of arrival: ambulatory Limitations: physical limitation Nursing Notes Reviewed: Yes Vital Signs Reviewed: Yes - History of Present Illness HPI Narrative: 53 year old man with hx significant for CHF, HTN, DM, and hemodialysis who presents to the ED complaining of SOB. 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 After which he went and ate [place] food. He started having edema in lower limbs that progressed more proximally. Today, he was experiencing SOB that has been worsening over last few hours and feels he is "gurgling" now. Pt Subjective Complaint: sob Onset (ago): hour(s) Pain Scale: 0 Improves with: movement, other (laying flat) Worsens with: nothing Associated symptoms: Reports: other (edema) Treatments Prior to Arrival: none - Related Data Home Medications Medication Instructions Recorded Confirmed HYDROcodone/Acet 5/325 mg [[place] 1 tab PO BID PRN 07/21/17 03/26/18 5-325 mg] Aspirin [Lo-Dose Aspirin EC] 81 mg PO DAILY 03/26/18 03/26/18 Calcitriol 0.5 mcg PO DAILY 03/26/18 03/26/18 Carvedilol 12.5 mg PO BID 03/26/18 03/26/18 Clopidogrel [Plavix] 75 mg PO DAILY 03/26/18 03/26/18 Ferric Citrate [Auryxia] 420 mg PO TID MDD 8 tablets 03/26/18 03/26/18 Furosemide [Lasix] 40 mg PO BID 03/26/18 03/26/18 Insulin LISPRO [HumaLOG] 5 - 10 unit SQ TIDWM 03/26/18 03/26/18 Isosorbide MONOnitrate (24 HR) 30 mg PO DAILY 03/26/18 03/26/18 [Imdur] L.acidoph,Paracasei, B.lactis 1 cap PO DAILY 03/26/18 03/26/18 [Probiotic] Levothyroxine [Synthroid] 25 mcg PO DAILY 03/26/18 03/26/18 Lisinopril [Zestril] 20 mg PO DAILY 03/26/18 03/26/18 OxyCODONE Immed Rel [Roxicodone 10 10 mg PO Q6H PRN 03/26/18 03/26/18 MG] Ropinirole HCl [Requip] 4 mg PO HS 03/26/18 03/26/18 Rosuvastatin [Crestor] 40 mg PO HS 03/26/18 03/26/18 Vitamin B Complex [B Complex] 1 each PO DAILY 03/26/18 03/26/18 buPROPion HCl [Zyban] 150 mg PO BID 03/26/18 03/26/18 Previous Rx's Medication Instructions Recorded risperiDONE [RisperDAL] 0.5 mg PO DAILY 30 Days #30 tablet 04/02/18 risperiDONE [RisperDAL] 1 mg PO HS 30 Days #30 tablet 04/02/18 Allergies Allergy/AdvReac Type Severity Reaction Status Date / Time No Known Allergies Allergy Verified 03/26/18 11:14 All systems ED: reviewed and negative except as stated. Cardiovascular: Reports: dyspnea on exertion, orthopnea, edema Respiratory: Reports: cough, dyspnea Past Medical History - Past Medical History Medical history: Reports: cardiomyopathy, CHF, coronary artery disease, diabetes , hyperlipidemia, hypertension, kidney stones, peripheral artery disease, renal disease, thyroid disease, other Surgical history: Reports: bariatric surgery, other (Left BKA, left upper extremity AVF, right subclavian vein dialysis catheter) Psychiatric history: Reports: depression - Social History Smoking Status: Never smoker Smokeless Tobacco Status: No Alcohol use: Reports: none Drug use: Reports: none Physical Exam - General Limitations: physical limitation General appearance: alert, obese, other (mildly labored breathing. ) - Head Head exam: atraumatic, normocephalic, normal inspection - ENT ENT exam: mucous membranes moist, other (dried blood at corner of mouth ) - Neck Neck exam: Present: normal inspection, trachea midline - Chest Chest inspection: Present: normal inspection, symmetric chest wall rise - Respiratory Respiratory exam: Present: other (diffuse rhonchi and diminshment ) - Cardiovascular Cardiovascular exam: Present: regular rate, normal rhythm, normal heart sounds, +S1, +S2, other (chest wall edema) - Abdominal Exam Abdominal exam: Present: soft, Non-Tender, distention, other (edema) - Male exam: Present: scrotal swelling - Extremities Exam Extremities exam: Present: pedal edema, other (Prior L BKA) - Back Exam Back exam: Present: other (sacral edema) - Neurological Exam Neurological exam: Present: alert - Skin Skin exam: Present: pallor Course Course Narrative: Presents to ED with SOB after not full session dialysis on Sat after which he ate [place] food and has had increasing edema since to level of anasarca now. Bilaterally lungs are very wet and having visible increased work of breathing. Will get cbc, bmp, and give 120mg lasix now. 1999: Was informed from staff when changing his diaper that his stool was black. He is on iron but given his palor and hgb 8.5 I will do heme occult now. Heme occult neg. Will admit to hospitalist service for continued diuresis for sob who accepted. Vital Signs Temperature 97.1 F L 05/01/18 18:49 Pulse Rate 88 05/01/18 18:49 Respiratory Rate 21 05/01/18 18:49 Blood Pressure 122/92 05/01/18 18:49 O2 Sat by Pulse Oximetry 100 05/01/18 18:49 Temperature 97.9 F 05/02/18 00:17 Pulse Rate 93 05/02/18 00:17 Respiratory Rate 17 05/02/18 00:17 Blood Pressure 135/88 05/02/18 00:17 O2 Sat by Pulse Oximetry 99 05/02/18 00:17 Oxygen Delivery Oxygen Delivery Nasal Cannula Medical Decision Making - Lab Data Result diagrams: 05/01/18 19:19 05/01/18 19:19 Lab Results 05/01/18 05/01/18 05/01/18 Range/Units 19:19 19:19 20:22 WBC 14.0 H (4.3-11.1) K/mcL RBC 2.69 L (4.19-5.50) M/mcL Hgb 8.5 L (12.9-16.9) g/dL Hct 27.6 L (37.5-50.1) % MCV 102.6 H (83.0-100.0) fL MCH 31.6 (28.0-33.3) pg MCHC 30.8 L (31.6-35.5) g/dL RDW 15.6 H (11.5-14.5) % Plt Count 122 L (140-400) K/mcL MPV 10.6 (9.4-12.4) fL Immature Gran % 0.4 (0-4) % Seg Neutrophils % 88.6 % Lymphocytes % 2.6 % Monocytes % 8.1 % Eosinophils % 0.2 % Basophils % 0.1 % Neutrophils # 12.4 H (1.6-8.9) K/mcL Lymphocytes # 0.4 L (0.6-4.6) K/mcL Monocytes # 1.1 (0.0-1.3) K/mcL Eosinophils # 0.0 (0.0-0.6) K/mcL Basophils # 0.0 (0.0-0.2) K/mcL Nucleated RBCs/100 WBC 0.1 H (0) /100 WBC Sodium 136 (136-145) mEq/L Potassium 3.4 L (3.5-5.1) mEq/L Chloride 102 (98-107) mEq/L Carbon Dioxide 25 (23-29) mEq/L BUN 37 H (6-20) mg/dL Creatinine 5.47 H (0.70-1.30) mg/dL Est GFR ( Amer) 13 L (> 60) Est GFR (Non-Af Amer) 11 L (> 60) BUN/Creatinine Ratio 7 (6-26) Glucose 174 H (70-105) mg/dL Calculated Osmolality 295 (280-300) Calcium 8.8 (8.6-10.3) mg/dL Stool Occult Bld Scrn Negative (Negative)
--- NOTE | 2018-05-01 19:53 | Emergency Department Note ---
Disposition Clinical Impression: Anasarca, End stage renal disease, Anemia Disposition: Admitted As Inpatient Condition: Fair General Adult HPI - General Chief complaint: ED Shortness of Breath/Dyspnea Stated complaint: SOB Time Seen by Provider: 05/01/18 19:02 Source: patient Mode of arrival: ambulatory Limitations: physical limitation - History of Present Illness Pain Scale: 0 - Related Data Home Medications Medication Instructions Recorded Confirmed HYDROcodone/Acet 5/325 mg [[place] 1 tab PO BID PRN 07/21/17 03/26/18 5-325 mg] Aspirin [Lo-Dose Aspirin EC] 81 mg PO DAILY 03/26/18 03/26/18 Calcitriol 0.5 mcg PO DAILY 03/26/18 03/26/18 Carvedilol 12.5 mg PO BID 03/26/18 03/26/18 Clopidogrel [Plavix] 75 mg PO DAILY 03/26/18 03/26/18 Ferric Citrate [Auryxia] 420 mg PO TID MDD 8 tablets 03/26/18 03/26/18 Furosemide [Lasix] 40 mg PO BID 03/26/18 03/26/18 Insulin LISPRO [HumaLOG] 5 - 10 unit SQ TIDWM 03/26/18 03/26/18 Isosorbide MONOnitrate (24 HR) 30 mg PO DAILY 03/26/18 03/26/18 [Imdur] L.acidoph,Paracasei, B.lactis 1 cap PO DAILY 03/26/18 03/26/18 [Probiotic] Levothyroxine [Synthroid] 25 mcg PO DAILY 03/26/18 03/26/18 Lisinopril [Zestril] 20 mg PO DAILY 03/26/18 03/26/18 OxyCODONE Immed Rel [Roxicodone 10 10 mg PO Q6H PRN 03/26/18 03/26/18 MG] Ropinirole HCl [Requip] 4 mg PO HS 03/26/18 03/26/18 Rosuvastatin [Crestor] 40 mg PO HS 03/26/18 03/26/18 Vitamin B Complex [B Complex] 1 each PO DAILY 03/26/18 03/26/18 buPROPion HCl [Zyban] 150 mg PO BID 03/26/18 03/26/18 Previous Rx's Medication Instructions Recorded risperiDONE [RisperDAL] 0.5 mg PO DAILY 30 Days #30 tablet 04/02/18 risperiDONE [RisperDAL] 1 mg PO HS 30 Days #30 tablet 04/02/18 Allergies Allergy/AdvReac Type Severity Reaction Status Date / Time No Known Allergies Allergy Verified 03/26/18 11:14 Past Medical History - Past Medical History Medical history: Reports: cardiomyopathy, CHF, coronary artery disease, diabetes , hyperlipidemia, hypertension, kidney stones, peripheral artery disease, renal disease, thyroid disease, other Surgical history: Reports: bariatric surgery, other (Left BKA, left upper extremity AVF, right subclavian vein dialysis catheter) Psychiatric history: Reports: depression - Social History Smoking Status: Never smoker Smokeless Tobacco Status: No Alcohol use: Reports: none Drug use: Reports: none Physical Exam - General Limitations: physical limitation General appearance: alert, obese, other (mildly labored breathing. ) Course Vital Signs Temperature 97.1 F L 05/01/18 18:49 Pulse Rate 88 05/01/18 18:49 Respiratory Rate 21 05/01/18 18:49 Blood Pressure 122/92 05/01/18 18:49 O2 Sat by Pulse Oximetry 100 05/01/18 18:49 Temperature 97.9 F 05/02/18 00:17 Pulse Rate 93 05/02/18 00:17 Respiratory Rate 17 05/02/18 00:17 Blood Pressure 135/88 05/02/18 00:17 O2 Sat by Pulse Oximetry 99 05/02/18 00:17 Oxygen Delivery Oxygen Delivery Nasal Cannula Medical Decision Making - Lab Data Result diagrams: 05/01/18 19:19 05/01/18 19:19 Lab Results 05/01/18 05/01/18 05/01/18 Range/Units 19:19 19:19 20:22 WBC 14.0 H (4.3-11.1) K/mcL RBC 2.69 L (4.19-5.50) M/mcL Hgb 8.5 L (12.9-16.9) g/dL Hct 27.6 L (37.5-50.1) % MCV 102.6 H (83.0-100.0) fL MCH 31.6 (28.0-33.3) pg MCHC 30.8 L (31.6-35.5) g/dL RDW 15.6 H (11.5-14.5) % Plt Count 122 L (140-400) K/mcL MPV 10.6 (9.4-12.4) fL Immature Gran % 0.4 (0-4) % Seg Neutrophils % 88.6 % Lymphocytes % 2.6 % Monocytes % 8.1 % Eosinophils % 0.2 % Basophils % 0.1 % Neutrophils # 12.4 H (1.6-8.9) K/mcL Lymphocytes # 0.4 L (0.6-4.6) K/mcL Monocytes # 1.1 (0.0-1.3) K/mcL Eosinophils # 0.0 (0.0-0.6) K/mcL Basophils # 0.0 (0.0-0.2) K/mcL Nucleated RBCs/100 WBC 0.1 H (0) /100 WBC Sodium 136 (136-145) mEq/L Potassium 3.4 L (3.5-5.1) mEq/L Chloride 102 (98-107) mEq/L Carbon Dioxide 25 (23-29) mEq/L BUN 37 H (6-20) mg/dL Creatinine 5.47 H (0.70-1.30) mg/dL Est GFR ( Amer) 13 L (> 60) Est GFR (Non-Af Amer) 11 L (> 60) BUN/Creatinine Ratio 7 (6-26) Glucose 174 H (70-105) mg/dL Calculated Osmolality 295 (280-300) Calcium 8.8 (8.6-10.3) mg/dL Stool Occult Bld Scrn Negative (Negative) Attestation Statement - Attestation Attestation: I examined this patient and my medical decision-making was reviewed with the Resident Physician. I agree with the documented findings, disposition and treatment plan as described except to the extent set forth below. Dialyzed for 2 hours on Tuesday for was supposed to be a 4 hour session. Today is Tuesday. Patient apparently ate [place] food over the weekend. Says he has a history of congestive heart failure knees symptoms feel the same. His lungs are obviously wet, with rales up to the apices bilaterally and diminished breath sounds in the lower two thirds of both lung hallman. He has anasarca with edema noted to the abdominal wall, chest wall, scrotum and lower extremities. He has what appears to be dried blood coming from the corners of his mouth, he says this is not blood but is a chewable vitamins that he was taking. He does appear somewhat pale. Awaiting his hemoglobin result.
[2018-05-01 20:07] LABS: Basophils % 0.1 %; Eosinophils % 0.2 %; Hematocrit 27.6 % (37.5-50.1); Hemoglobin 8.5 g/dL (12.9-16.9); Immature Granulocytes % 0.4 % (0-4); Lymphocytes # 0.4 K/mcL (0.6-4.6); Lymphocytes % 2.6 %; Mean Corpuscular HGB Conc 30.8 g/dL (31.6-35.5); Mean Corpuscular Hemoglobin 31.6 pg (28.0-33.3); Mean Corpuscular Volume 102.6 fL (83.0-100.0); Mean Platelet Volume 10.6 fL (9.4-12.4); Monocytes # 1.1 K/mcL (0.0-1.3); Monocytes % 8.1 %; Neutrophils # 12.4 K/mcL (1.6-8.9); Nucleated Red Blood Cells 0.1 /100 WBC (0); Platelet Count 122 K/mcL (140-400); Red Blood Count 2.69 M/mcL (4.19-5.50); Red Cell Distribution Width 15.6 % (11.5-14.5); Segmented Neutrophils % 88.6 %
[2018-05-01 20:25] LABS: Calcium 8.8 mg/dL (8.6-10.3); Potassium 3.4 mEq/L (3.5-5.1)
[2018-05-02] MEDS ORDERED: Naloxone 0.4 MG/ML INJ IVP PRN (01:32)
[2018-05-02] MEDS ORDERED: *HR* HYDROcodone/Acet 5/325 mg TABLET PO PRN (01:36)
[2018-05-02] MEDS ORDERED: *HR* OxyCODONE Immed Rel 5 MG TABLET PO PRN ×2 (01:36→07:39)
--- NOTE | 2018-05-02 02:34 | Internal Med History&Physical ---
Date of Encounter: 05/02/18 Time of Encounter: 01:25 Internal Medicine - H&P: HPI Chief complaint: Shortness of breath Admitted From: Emergency Dept Plans for Post Hospital Care: Home History of present illness: Mr. Bruno is a 53 year old male with history of end-stage renal disease on hemodialysis Tuesday, CHF, CAD, diabetes mellitus type 2, hyperlipidemia, hypertension, kidney stones, peripheral artery disease, thyroid disease, status post gastric bypass who presented to the ED with shortness of breath for 2 days duration. He says that lately he has been unable to attend the duration of his hemodialysis sessions due to pain from his chronic decubitus sacral ulcers. He has had these ulcers for quite some time however the pain has become excruciating and he is unable to sit still for long enough in order to complete his dialysis sessions. The last several sessions he says he has only been able to complete 2-3 hours. His last session was Tuesday at which time he only completed 2 hours. Following that, he apparently went home and had a scant amount of ice chips as well as a large [place] food dinner. Since that time, he says that he has been getting progressively more congested, and short of breath. He says that he has a cough associated with this as well and he has become increasingly more short of breath especially while lying down which is all he is been able to do for the most part. He also admits to shortness of breath with exertion. He denies any chest pain associated with this however he does have significant orthopnea and PND. He admits to having some vomiting which is associated with increased cough, however there is no nausea associated with this at all. He denies any fevers or chills. He does have recent history of C. difficile diarrhea for which he was treated with oral vancomycin and finished his treatment in the past week. He otherwise has no acute complaints at this time. Past Med Surg Social Fam HX - Past Medical History Medical history: cardiomyopathy, CHF, coronary artery disease, diabetes, hyperlipidemia, hypertension, kidney stones, peripheral artery disease, renal disease, thyroid disease, other Additional medical history: neuropathy Psychiatric history: depression - Past Surgical History Surgical History: bariatric surgery, other (Left BKA, left upper extremity AVF, right subclavian vein dialysis catheter) Additional surgical history: GASTRIC BYPASS. RIGHT UPPER CHEST DIALYSIS CATHETER. LEFT WRIST DIALYSIS FISTULA - Social History Smoking Status: Never smoker Smokeless Tobacco Status: No Alcohol use: none Drug use: none - Family History Father Adopted: No Living Status: Hx Family Cardiac Disorders: Yes Hx Family Respiratory Disorders: Yes Hx Family Cancer: No Hx Family GI Disorders: No Hx Family Endocrine Disorder: No Hx Family Neuromuscular Disorders: No Hx Family Neurologic Disorders: No Hx Family HEENT Disorders: No Hx Family Autoimmune Disorders: No Internal Medicine - H&P: Meds HYDROcodone/Acet 5/325 mg [[place] 5-325 mg] 1 tab PO BID PRN 07/21/17 [History] Aspirin [Lo-Dose Aspirin EC] 81 mg PO DAILY 03/26/18 [History] Calcitriol 0.5 mcg PO DAILY 03/26/18 [History] Carvedilol 12.5 mg PO BID 03/26/18 [History] Clopidogrel [Plavix] 75 mg PO DAILY 03/26/18 [History] Ferric Citrate [Auryxia] 420 mg PO TID MDD 8 tablets 03/26/18 [History] Furosemide [Lasix] 40 mg PO BID 03/26/18 [History] Insulin LISPRO [HumaLOG] 5 - 10 unit SQ TIDWM 03/26/18 [History] Isosorbide MONOnitrate (24 HR) [Imdur] 30 mg PO DAILY 03/26/18 [History] L.acidoph,Paracasei, B.lactis [Probiotic] 1 cap PO DAILY 03/26/18 [History] Levothyroxine [Synthroid] 25 mcg PO DAILY 03/26/18 [History] Lisinopril [Zestril] 20 mg PO DAILY 03/26/18 [History] OxyCODONE Immed Rel [Roxicodone 10 MG] 10 mg PO Q6H PRN 03/26/18 [History] Ropinirole HCl [Requip] 4 mg PO HS 03/26/18 [History] Rosuvastatin [Crestor] 40 mg PO HS 03/26/18 [History] Vitamin B Complex [B Complex] 1 each PO DAILY 03/26/18 [History] buPROPion HCl [Zyban] 150 mg PO BID 03/26/18 [History] risperiDONE [RisperDAL] 0.5 mg PO DAILY 30 Days #30 tablet 04/02/18 [Rx] risperiDONE [RisperDAL] 1 mg PO HS 30 Days #30 tablet 04/02/18 [Rx] 3 Allergy/AdvReac Type Severity Reaction Status Date / Time No Known Allergies Allergy Verified 03/26/18 11:14 All Systems PM: A 10-system review of systems was performed and is negative for pertinent findings except as documented above in the HPI. Review of systems: Constitutional: Denies fevers, chills, weight loss, generalized fatigue Head/Neck: Denies WANG, neck stiffness EENT: Denies vision changes/blurriness, rhinorrhea, congestion, sore throat CVS: Denies chest pain, palpitations. Admits to BARRETO, Orthopnea, PND Pulm: Denies SOB, sputum, hemoptysis, wheezing. Admits to Cough GI: Denies abdominal pain, nausea, vomiting, diarrhea, constipation, melena, hematemasis : Denies dysuria, increased frequency, urgency, hematuria Heme: Denies ease of bleeding or bruising MSK: Denies joint pain, limited ROM Skin: Denies rashes, color changes. Admits to sacral decubitus ulcer Neuro: Denies WANG, paresthesias, focal deficits, ataxia - Constitutional Vitals: Temp Pulse Resp BP Pulse Ox 97.9 F 93 17 135/88 99 05/02/18 00:17 05/02/18 00:17 05/02/18 00:17 05/02/18 00:17 05/02/18 00:17 Exam: Gen: Vitals noted. No acute distress HEENT: Normocephalic, atraumatic Neck: Supple. No adenopathy. Cardiac: RRR, no murmur, +S1/S2 Pulmonary: Bibasilar rales heard on auscultation which are heard more superiorly on the right Abdomen: soft, nontender, no guarding. No hepatosplenomegaly MSK: ROM intact, no joint swelling noted Extremities: Left BKA, 2+ edema in right lower extremity. AV fistula noted in left upper extremity Neuro: moves all extremities, no focal deficits. A&Ox3 Psych: Appropriate mood and behavior Internal Med - H&P Results - Labs CBC & Chem 7: 05/01/18 19:19 05/01/18 19:19 - Assessment and plan (1) Pulmonary edema Current Visit: Yes Status: Acute Assessment and plan: Pulmonary edema, secondary to ESRD and CHF Patient is on hemodialysis Tuesday, has been unable to completel HD due to pain in back On top of this, the patient has not been necessarily compliant with his low- sodium diet or fluid restriction He says that his dry weight is approximately 110kg as he remembers, however he presented with elevated weight Chest x-ray on arrival did not demonstrate increased pulmonary edema with pleural effusions bilaterally Patient received additional dose of Lasix but did not have significant increase in urine output Likely the patient will require hemodialysis for resolution of this fluid overload and pulmonary edema We will consult nephrology, plan for hemodialysis in the morning Qualifiers: Chronicity: acute Qualified Code(s): J81.0 - Acute pulmonary edema (2) ESRD on hemodialysis Current Visit: No Status: Chronic Assessment and plan: 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 The patient is at extremely high risk for C. difficile if given antibiotics and necessarily We will check blood cultures with morning labs, continue to monitor closely Hold on antibiotics pending signs of infection Repeat chest x-ray in 2-3 days Qualifiers: Leukocytosis type: leukemoid reaction Qualified Code(s): D72.823 - Leukemoid reaction (4) CHF (congestive heart failure) Current Visit: No Status: Acute Assessment and plan: CHF, most recent LVEF 40-45% on 09/08/17 Patient does have significant pulmonary edema with complaints of orthopnea and PND Currently on lisinopril, resume a statin, carvedilol, aspirin, Lasix Plan for hemodialysis for fluid removal tomorrow Qualifiers: Heart failure type: combined systolic and diastolic Heart failure chronicity: acute on chronic Qualified Code(s): I50.43 - Acute on chronic combined systolic (congestive) and diastolic (congestive) heart failure (5) Pleural effusion Status: Acute Assessment and plan: Acute large right pleural effusion and chest x-ray Secondary to CHF and ESRD with fluid overload Plan for fluid removal with hemodialysis and Lasix Consider consult to pulmonology or IR for thoracentesis if needed Currently patient's vitals are stable, only requiring 1-2 L of oxygen (6) Anemia Current Visit: Yes Status: Acute Assessment and plan: Anemia and chronic kidney disease, on hemodialysis Hemoglobin 8.5, stable from previous admission Goal hemoglobin 10, continue to monitor Qualifiers: Anemia type: due to chronic kidney disease Chronic kidney disease stage: on chronic dialysis Qualified Code(s): N18.6 - End stage renal disease; D63.1 - Anemia in chronic kidney disease; Z99.2 - Dependence on renal dialysis (7) Diabetes mellitus, type 2 Current Visit: No Status: Chronic Assessment and plan: Diabetes mellitus type 2, well controlled Sliding-scale insulin Qualifiers: Diabetes mellitus terminal make up operator insulin use: with intermediate use Diabetes mellitus complication status: with hypoglycemia Diabetes mellitus complication detail: without coma Qualified Code(s): E11.649 - Type 2 diabetes mellitus with hypoglycemia without coma; Z79.4 - keno terminal operator (current) use of insulin (8) DVT prophylaxis Current Visit: No Status: Acute Assessment and plan: Subcutaneous heparin - Time Spent With Patient Total time spent is greater than 50% in coordination of care (as documented) at patient's floor/unit and/or counseling patient:
[2018-05-02] MEDS ORDERED: *HR* Dextrose 50 % in Water (Syg) 50 ML SYRINGE IVP PRN (05:27)
[2018-05-02] MEDS ORDERED: D5% in Water 1,000 ML IVC PRN (05:27)
[2018-05-02] MEDS ORDERED: Dextrose Gel 15 GM/37.5 ML TUBE PO PRN ×2 (05:27)
[2018-05-02 05:31] LABS: Basophils % 0.1 %; Eosinophils % 0.1 %; Hematocrit 25.1 % (37.5-50.1); Immature Granulocytes % 0.5 % (0-4); Lymphocytes # 0.4 K/mcL (0.6-4.6); Lymphocytes % 2.1 %; Mean Corpuscular HGB Conc 31.9 g/dL (31.6-35.5); Mean Corpuscular Hemoglobin 32.1 pg (28.0-33.3); Mean Corpuscular Volume 100.8 fL (83.0-100.0); Mean Platelet Volume 10.5 fL (9.4-12.4); Monocytes # 1.4 K/mcL (0.0-1.3); Monocytes % 7.2 %; Neutrophils # 17.1 K/mcL (1.6-8.9); Nucleated Red Blood Cells 0.2 /100 WBC (0); Platelet Count 113 K/mcL (140-400); Red Blood Count 2.49 M/mcL (4.19-5.50); Red Cell Distribution Width 15.4 % (11.5-14.5)
[2018-05-02 05:49] LABS: Calcium 8.8 mg/dL (8.6-10.3); Phosphorous 3.8 mg/dL (2.7-4.5); Potassium 3.3 mEq/L (3.5-5.1)
[2018-05-02 06:20] LABS: Toxic Granulation Present (Not Present)
[2018-05-02 06:21] LABS: Platelet Estimate Slight Decrease (Normal)
[2018-05-02] MEDS ORDERED: 0.9 % Sodium Chloride 250 ML IVC PRN (06:21)
[2018-05-02] MEDS ORDERED: 0.9 % Sodium Chloride 1,000 ML PRIME SCH (06:30)
[2018-05-02] MEDS: *HR* Heparin 5,000 UNIT/ML VIAL SQ SCH ×3 (06:52→21:32)
[2018-05-02] MEDS: Levothyroxine 25 MCG TABLET PO SCH (06:52)
[2018-05-02] MEDS: Insulin LISPRO 300 UNITS/3 ML VIAL SQ SCH ×4 (08:59→21:25)
[2018-05-02] MEDS ORDERED: Ferric Citrate [Auryxia] 420 MG PO SCH (09:00)
[2018-05-02] MEDS: risperiDONE 0.25 MG TABLET PO SCH (09:01)
[2018-05-02] MEDS: BuPROPion SR (12 HR) 150 MG TABLET PO SCH ×2 (09:01→21:31)
[2018-05-02] MEDS: Aspirin Enteric Coated 81 MG Tablet PO SCH (09:01)
--- NOTE | 2018-05-02 09:48 | Nephrology Consult Note ---
Date of Encounter: 05/02/18 Time of Encounter: 09:43 Assessment and Plan (1) ESRD (end stage renal disease) Current Visit: Yes Status: Chronic Current regimen is TTS at [facility]. Last tx was Tuesday, but it was only approximately 2 hours. Treatment planned for today for 4 hours 15 minutes. Avoid nephrotoxins. Renal diet. Strict I/O. (2) Anemia Current Visit: Yes Status: Acute Goal hgb is 10-11. Hgb is 8 today. Iron profile ordered. Qualifiers: Anemia type: due to chronic kidney disease Chronic kidney disease stage: on chronic dialysis Qualified Code(s): N18.6 - End stage renal disease; D63.1 - Anemia in chronic kidney disease; Z99.2 - Dependence on renal dialysis (3) Hypokalemia Current Visit: Yes Status: Acute K is 3.3 today. (4) Wound of sacral region Current Visit: Yes Status: Acute Would suggest getting wound care on board to evaluate. Qualifiers: Encounter type: initial encounter Qualified Code(s): S31.000A - Unspecified open wound of lower back and pelvis without penetration into retroperitoneum, initial encounter History of Present Illness - Reason for Consult Consult date: 05/02/18 end stage renal disease - Chief Complaint fluid overload - History of Present Illness Mr. Bruno is a 53 year old Male with ESRD. Presented to ED with fluid overload and difficulty in breathing. PMH: cardiomyopathy, CHF, coronary artery disease, diabetes, hyperlipidemia, hypertension, kidney stones, peripheral artery disease,thyroid disease. His current regimen is TTS at [facility]. His run time should be 4 hours and 15 minutes, however he has been signing off after 2 hours due to pain in his coccyx area from a sacral decub. He admits to poor PO intake at home and he also states he felt dehydrated when he was admitted. He tells me that he has trouble getting around his house and getting certain things he wants. Will place a social service consult for assistance. He does live home alone. He does wear home Oxygen at 2 Liters, which he is on now. He states he has been short of breath for "awhile now" but it just got worse in the last couple weeks. The fact that he is signing off early from his HD sessions could be a contributing factor. He denies CP. Denies nausea/vomiting/ diarrhea. He is a former smoker, does not routinely drink ETOH, no illicit drug use. Will plan for HD today, 4 hours and 15 minutes. Past Med Surg Social Fam HX - Past Medical History Medical history: cardiomyopathy, CHF, coronary artery disease, diabetes, hyperlipidemia, hypertension, kidney stones, peripheral artery disease, renal disease, thyroid disease, other Additional medical history: neuropathy Psychiatric history: depression - Past Surgical History Surgical History: bariatric surgery, other (Left BKA, left upper extremity AVF, right subclavian vein dialysis catheter) Additional surgical history: GASTRIC BYPASS. RIGHT UPPER CHEST DIALYSIS CATHETER. LEFT WRIST DIALYSIS FISTULA - Social History Smoking Status: Never smoker Smokeless Tobacco Status: No Alcohol use: none Drug use: none - Family History Father Adopted: No Living Status: Hx Family Cardiac Disorders: Yes Hx Family Respiratory Disorders: Yes Hx Family Cancer: No Hx Family GI Disorders: No Hx Family Endocrine Disorder: No Hx Family Neuromuscular Disorders: No Hx Family Neurologic Disorders: No Hx Family HEENT Disorders: No Hx Family Autoimmune Disorders: No Medications and Allergies HYDROcodone/Acet 5/325 mg [Sebring 5-325 mg] 1 tab PO BID PRN 07/21/17 [History] Aspirin [Lo-Dose Aspirin EC] 81 mg PO DAILY 03/26/18 [History] Calcitriol 0.5 mcg PO DAILY 03/26/18 [History] Carvedilol 12.5 mg PO BID 03/26/18 [History] Clopidogrel [Plavix] 75 mg PO DAILY 03/26/18 [History] Ferric Citrate [Auryxia] 420 mg PO TID MDD 8 tablets 03/26/18 [History] Furosemide [Lasix] 40 mg PO BID 03/26/18 [History] Insulin LISPRO [HumaLOG] 5 - 10 unit SQ TIDWM 03/26/18 [History] Isosorbide MONOnitrate (24 HR) [Imdur] 30 mg PO DAILY 03/26/18 [History] L.acidoph,Paracasei, B.lactis [Probiotic] 1 cap PO DAILY 03/26/18 [History] Levothyroxine [Synthroid] 25 mcg PO DAILY 03/26/18 [History] Lisinopril [Zestril] 20 mg PO DAILY 03/26/18 [History] OxyCODONE Immed Rel [Roxicodone 10 MG] 10 mg PO 3XW PRN 03/26/18 [History] Ropinirole HCl [Requip] 4 mg PO HS 03/26/18 [History] Vitamin B Complex [B Complex] 1 each PO DAILY 03/26/18 [History] buPROPion HCl [Zyban] 150 mg PO BID 03/26/18 [History] risperiDONE [RisperDAL] 0.5 mg PO DAILY 30 Days #30 tablet 04/02/18 [Rx] risperiDONE [RisperDAL] 1 mg PO HS 30 Days #30 tablet 04/02/18 [Rx] Atorvastatin Calcium [Lipitor] 80 mg PO HS 05/02/18 [History] Sucroferric Oxyhydroxide [Velphoro] 500 mg PO TID 05/02/18 [History] 3 Allergy/AdvReac Type Severity Reaction Status Date / Time No Known Allergies Allergy Verified 03/26/18 11:14 Review of Systems All Systems review (narrative): All other systems reviewed and are negative. Constitutional: no chills, no fatigue, no fever(s) Cardiovascular: dyspnea, dyspnea on exertion, edema, orthopnea, no chest pain Gastrointestinal: no change in bowel habits, no diarrhea, no nausea, no vomiting Exam - Vital Signs Vital signs: Initial Vital Signs Temp Pulse Resp BP Pulse Ox 97.1 F L 88 21 122/92 100 05/01/18 18:49 05/01/18 18:49 05/01/18 18:49 05/01/18 18:49 05/01/18 18:49 Vital Signs - Last 8 Hours Temp Pulse Resp BP Pulse Ox 05/02/18 07:45 98.1 F 89 17 135/88 100 05/02/18 04:15 97.5 F L 96 17 127/79 99 Intake and Output 05/01/18 05/02/18 05/02/18 23:59 07:59 15:59 Other: Stool Size Small Stool Consistency soft Stool Color Green Weight 114.8 kg Blood Glucose* 137 Patient Weight 05/02/18 23:59 Weight 114.8 kg - General Appearance General appearance: well-developed, well-nourished EENT: ATNC, hearing intact, vision intact Neck: supple Respiratory: clear Cardiology: edema (+3 pitting edema noted to RLE, amputation of LLE. ), normal S1, normal S2 - Dialysis Access Dialysis Vascular Access: Arteriovenous Fistula thrill: Yes bruit: Yes Gastrointestinal: normoactive bowel sounds, no tenderness, no guarding Integumentary: no rash, warm and dry Neurologic: alert and oriented x3 Psychiatric: mood/affect appropriate, cooperative Results - Lab Results 05/02/18 05:11 05/02/18 05:11 Most recent lab results Calcium 8.8 mg/dL (8.6-10.3) 05/02/18 05:11 Phosphorus 3.8 mg/dL (2.7-4.5) 05/02/18 05:11 Magnesium 2.0 mg/dL (1.6-2.6) 05/02/18 05:11 Consult Discharge Plan - Plan Referrals: Shakira Diaz CNP [Primary Care Provider] -
[2018-05-02] MEDS: Isosorbide MONOnitrate (24 HR) 30 MG TAB.ER.24H PO SCH (15:00)
[2018-05-02] MEDS: Furosemide 40 MG TABLET PO SCH ×2 (15:00→17:12)
[2018-05-02] MEDS: Lisinopril 20 MG TABLET PO SCH (15:01)
--- NOTE | 2018-05-02 19:01 | Electrocardiograph Report ---
[place] [id number] Test Date: 2018-05-01 Pat Name: Jeramy Bruno Department: EXAM2 Room: 2A24 Gender: M Director Trust: : 1965 Requested By: Ministerio Tatum Order Number: [id number] Reading MD: Elias Rehman Measurements Intervals [place] Rate: 88 P: 40 CO: 198 QRS: -4 QRSD: 119 T: 132 QT: 428 QTc: 518 Interpretive Statements Sinus rhythm Nonspecific intraventricular conduction delay Borderline low voltage, extremity leads Nonspecific ST-T changes Electronically Signed On 05-02-2018 19:00:07 EDT by Elias Rehman
[2018-05-02] MEDS ORDERED: NON-FORMULARY MEDICATION 1 EACH EACH (Ropinirole Hcl [Requip] 4 MG) PO SCH (21:00)
--- NOTE | 2018-05-02 21:27 | Internal Med Progress Note ---
Hospitalist Progress Note - Encounter Date of Encounter: 05/02/18 Time of Encounter: 19:00 - Subjective Interval History: SUBJECTIVE: He said breathing seems to be better. He continues to use supplemental oxygen at 3 L/min nasal cannula; was not using it at home. Denies chest pain. He does have mild cough but not wheezing. Denies abdominal pain, nausea and vomiting. He is not making any urine. OBJECTIVE: Skin: Free of rash and discoloration. ENMT: Oral/pharyngeal mucosa is normal in appearance. Eyes: Sclera is white. There is no discharge from eyes. Respiratory: Normal breath sounds; no crackles or wheezes. CV: Heart is regular; no gallop or murmur. GI: Abdomen is soft and not tender. There is no palpable mass or visceromegaly. Neuro: There is no focal deficits. ASSESSMENT AND PLAN: Fluid overload secondary to end-stage renal disease. The patient did it get full hemodialysis last time before this hospitalization due to pain in his sacral area (has a decub there). He is under care of 1 of our nephrologists. The patient has underlying systolic and diastolic heart failure. He has severe three-vessel diseasesee his cardiac catheterization from June 2017. He has developed acute hypoxic respiratory failure. It should go away after giving him sufficient hemodialysis. Type 2 diabetes mellitus/hypertension with end-stage renal disease. He is on diabetic diet and when necessary Humalog. He is on Coreg. Anemia from chronic kidney disease. His hemoglobin is 8.0; 8.5 yesterday. Leukocytosis. I will repeat his CBC in the morning. Hypokalemia. Mild. Should be corrected at the time of his next hemodialysis. - Exam Vitals: Temp Pulse Resp BP Pulse Ox 98.6 F 82 17 133/81 100 05/02/18 19:51 05/02/18 19:51 05/02/18 19:51 05/02/18 19:51 05/02/18 19:51 Exam: xx - Assessment and Plan (1) Other fluid overload Current Visit: Yes Status: Acute (2) Acute respiratory failure with hypoxia Current Visit: Yes Status: Acute (3) Diabetes Current Visit: Yes Status: Acute (4) Hypertensive renal disease with renal failure Current Visit: Yes Status: Chronic (5) Anemia Current Visit: Yes Status: Acute (6) ESRD on hemodialysis Current Visit: No Status: Chronic - Time Spent with Patient Total time spent is greater than 50% in coordination of care (as documented) at patient's floor/unit and/or counseling patient: 25 - 35 minutes Plan of Care Discussed with: patient Internal Medicine: Result - Labs CBC & Chem 7: 05/02/18 05:11 05/02/18 05:11 Labs: Short CBC 05/02/18 Range/Units 05:11 WBC 19.0 H (4.3-11.1) K/mcL Hgb 8.0 L (12.9-16.9) g/dL Hct 25.1 L (37.5-50.1) % Plt Count 113 L (140-400) K/mcL Neutrophils # 17.1 H (1.6-8.9) K/mcL BMP 05/02/18 05:11 Sodium 136 Potassium 3.3 L Chloride 102 Carbon Dioxide 23 BUN 41 H Creatinine 5.54 H Glucose 153 H Calcium 8.8 Consult Discharge Plan - Plan Referrals: Shakira Diaz, FAMILY SERVICES ASSISTANT [Primary Care Provider] - (3) Diabetes Qualifiers: Diabetes mellitus type: type 2 Diabetes mellitus halfway insulin use: with halfway use Diabetes mellitus complication status: with kidney complications Chronic kidney disease stage: on chronic dialysis (5) Anemia Qualifiers: Anemia type: due to chronic kidney disease Chronic kidney disease stage: on chronic dialysis Qualified Code(s): N18.6 - End stage renal disease; D63.1 - Anemia in chronic kidney disease; Z99.2 - Dependence on renal dialysis
[2018-05-02] MEDS: rOPINIRole 1 MG, rOPINIRole 3 MG PO SCH (21:31)
[2018-05-02] MEDS: risperiDONE 1 MG TABLET PO SCH (21:31)
[2018-05-03 05:20] LABS: Basophils % 0.1 %; Eosinophils % 0.1 %; Hematocrit 24.3 % (37.5-50.1); Hemoglobin 7.5 g/dL (12.9-16.9); Immature Granulocytes % 0.6 % (0-4); Lymphocytes # 0.7 K/mcL (0.6-4.6); Lymphocytes % 5.3 %; Mean Corpuscular HGB Conc 30.9 g/dL (31.6-35.5); Mean Corpuscular Hemoglobin 31.6 pg (28.0-33.3); Mean Corpuscular Volume 102.5 fL (83.0-100.0); Mean Platelet Volume 10.5 fL (9.4-12.4); Monocytes % 7.3 %; Nucleated Red Blood Cells 0.1 /100 WBC (0); Platelet Count 119 K/mcL (140-400); Red Blood Count 2.37 M/mcL (4.19-5.50); Red Cell Distribution Width 15.9 % (11.5-14.5); Segmented Neutrophils % 86.6 %
[2018-05-03 05:24] LABS: Calcium 8.5 mg/dL (8.6-10.3); Phosphorous 3.4 mg/dL (2.7-4.5); Potassium 3.1 mEq/L (3.5-5.1)
[2018-05-03 05:25] LABS: % Iron Saturation 5 % (20-55); Iron 10 mcg/dL (65-175); Transferrin 130 mg/dL (203-362)
[2018-05-03 05:43] LABS: Ferritin 699 ng/mL (20-250)
[2018-05-03 05:48] LABS: Folate 7.9 ng/mL (3.0-16.0)
[2018-05-03] MEDS: *HR* Heparin 5,000 UNIT/ML VIAL SQ SCH ×3 (06:09→20:50)
[2018-05-03] MEDS: Levothyroxine 25 MCG TABLET PO SCH (06:09)
[2018-05-03] MEDS ORDERED: 0.9 % Sodium Chloride 250 ML IVC PRN (06:34)
[2018-05-03] MEDS ORDERED: Ferumoxytol 510 MG in 0.9 % Sodium Chloride 100 ML IVPB ONE (06:38)
[2018-05-03] MEDS ORDERED: 0.9 % Sodium Chloride 1,000 ML ONE (07:26)
[2018-05-03] MEDS: risperiDONE 0.25 MG TABLET PO SCH (07:58)
[2018-05-03] MEDS: BuPROPion SR (12 HR) 150 MG TABLET PO SCH ×2 (07:58→20:50)
[2018-05-03] MEDS: Aspirin Enteric Coated 81 MG Tablet PO SCH (07:58)
[2018-05-03] MEDS: Furosemide 40 MG TABLET PO SCH ×2 (07:58→16:40)
[2018-05-03] MEDS: Lisinopril 20 MG TABLET PO SCH (07:58)
[2018-05-03] MEDS: Isosorbide MONOnitrate (24 HR) 30 MG TAB.ER.24H PO SCH (07:59)
[2018-05-03] MEDS: Insulin LISPRO 300 UNITS/3 ML VIAL SQ SCH ×4 (08:09→23:51)
--- NOTE | 2018-05-03 09:24 | Nephrology Progress Note ---
Date of Encounter: 05/03/18 Time of Encounter: 09:19 - Assessment and Plan (1) ESRD (end stage renal disease) Current Visit: Yes Status: Chronic Current regimen is TTS at [facility]. HD completed yesterday and in progress today. Avoid nephrotoxins. Renal diet. Strict I/O. (2) Anemia Current Visit: Yes Status: Acute Goal hgb is 10-11. Hgb is 7.5 today, Iron profile ordered: Iron 10 % sat is 5. Transferrin is 130. Ferritin 699 Folate 7.9. Aranesp ordered for today. IV iron ordered for today. Qualifiers: Anemia type: due to chronic kidney disease Chronic kidney disease stage: on chronic dialysis Qualified Code(s): N18.6 - End stage renal disease; D63.1 - Anemia in chronic kidney disease; Z99.2 - Dependence on renal dialysis (3) Hypokalemia Current Visit: Yes Status: Acute K is 3.1 today, will correct with HD today. 40 meq x 1 ordered for replacement today. (4) Wound of sacral region Current Visit: Yes Status: Acute Wound care consulted, appreciate recommendations. Qualifiers: Encounter type: initial encounter Qualified Code(s): S31.000A - Unspecified open wound of lower back and pelvis without penetration into retroperitoneum, initial encounter (5) Physical deconditioning Current Visit: Yes Status: Acute PT/OT ordered. Subjective Principal diagnosis: shortness of breath Interval history: Pt seen and examined during HD. Denies CP/SOB/nausea/vomiting/diarrhea. Objective - Vital Signs Vital signs: Vital Signs Temp Pulse Resp BP Pulse Ox 05/03/18 07:15 97.6 F 85 16 124/89 100 05/03/18 04:34 97.3 F L 79 15 133/87 100 05/03/18 00:40 97.7 F 81 16 119/81 100 05/02/18 19:51 98.6 F 82 17 133/81 100 05/02/18 16:13 97.6 F 82 19 131/82 100 05/02/18 14:10 97.4 F L 16 140/83 05/02/18 13:45 141/90 05/02/18 13:30 149/93 05/02/18 13:15 142/94 05/02/18 13:00 140/93 05/02/18 12:45 144/94 05/02/18 12:30 148/91 05/02/18 12:15 143/91 05/02/18 12:00 138/82 05/02/18 11:45 153/82 05/02/18 11:30 143/86 05/02/18 11:15 143/89 05/02/18 11:00 148/88 05/02/18 10:45 143/85 05/02/18 10:30 127/98 05/02/18 10:15 135/82 05/02/18 10:00 142/79 05/02/18 09:45 157/81 05/02/18 09:30 97.3 F L 19 139/83 Intake and Output 05/02/18 05/03/18 05/03/18 23:59 07:59 15:59 Other: Weight 111.5 kg Blood Glucose* 167 137 Patient Weight 05/03/18 23:59 Weight 111.5 kg - General Appearance General appearance: Present: well-developed, well-nourished EENT: Present: ATNC, hearing intact, vision intact Neck: Present: supple Respiratory: Present: clear Cardiology: Present: no edema, normal S1, normal S2 Dialysis Vascular Access: Arteriovenous Fistula thrill: Yes bruit: Yes Gastrointestinal: Present: normoactive bowel sounds, no tenderness, no guarding Integumentary: Present: no rash, warm and dry Neurologic: Present: alert and oriented x3 Psychiatric: Present: mood/affect appropriate, cooperative - Lab 05/03/18 04:47 05/03/18 04:47 Most recent lab results Calcium 8.5 mg/dL (8.6-10.3) L 05/03/18 04:47 Phosphorus 3.4 mg/dL (2.7-4.5) 05/03/18 04:47 Magnesium 2.0 mg/dL (1.6-2.6) 05/02/18 05:11 Consult Discharge Plan - Plan Referrals: Shakira Diaz, LOUISA [Primary Care Provider] -
[2018-05-03] MEDS: *HR* OxyCODONE Immed Rel 5 MG TABLET PO PRN ×2 (11:22→20:53)
[2018-05-03] MEDS ORDERED: Saline Nasal Spray 44 ML BOTTLE NS PRN (19:34)
[2018-05-03] MEDS ORDERED: *HR* LORazepam 2 MG/ML VIAL IVP ONE (19:35)
--- NOTE | 2018-05-03 20:21 | Internal Med Progress Note ---
Hospitalist Progress Note - Encounter Date of Encounter: 05/03/18 Time of Encounter: 19:00 - Subjective Interval History: SUBJECTIVE: He seems to be doing better. He is not using supplemental oxygen anymore. His resting dyspnea subsided. Denies coughing and wheezing. His low back pain is not bothering him, as long as he can reposition himself frequently. Denies abdominal pain, nausea and vomiting. He basically does not make any urine at all. OBJECTIVE: Skin: Free of rash and discoloration. I did examine the skin of sacral area. There is a small area of pink color skin representing a recently healed ulcer. That area is intact. ENMT: Oral/pharyngeal mucosa is normal in appearance. Eyes: Sclera is white. There is no discharge from eyes. Respiratory: Normal breath sounds; no crackles or wheezes. CV: Heart is regular; no gallop or murmur. GI: Abdomen is soft and not tender. There is no palpable mass or visceromegaly. Neuro: There is no focal deficits. ASSESSMENT AND PLAN: Fluid overload secondary to end-stage renal disease. It is managed by nephrology. It looks like his pulmonary congestion subsided, as well as acute hypoxic respiratory failure. The patient has underlying systolic and diastolic heart failure. He has severe three-vessel diseasese. See his last cardiac catheterization from June 2017. Type 2 diabetes mellitus/hypertension with end-stage renal disease. He is on diabetic diet and when necessary Humalog. He is on Coreg. Anemia from chronic kidney disease. His hemoglobin is 7.5; 8.0 yesterday. The patient might benefit from Procrit. Leukocytosis. It is a 13.9 thousand today; 19.0 thousand yesterday. Hypokalemia. Mild. Should be corrected with hemodialyses. Disposition: I am ordering a chest x-ray. The patient will likely be discharged to ECF/ rehab tomorrow (awaiting a bed available). - Exam Vitals: Temp Pulse Resp BP Pulse Ox 97.6 F 89 15 152/99 97 05/03/18 16:24 05/03/18 16:24 05/03/18 16:24 05/03/18 16:24 05/03/18 16:24 Exam: xx - Assessment and Plan (1) Other fluid overload Current Visit: Yes Status: Acute (2) Acute respiratory failure with hypoxia Current Visit: Yes Status: Acute (3) Diabetes Current Visit: Yes Status: Acute (4) Hypertensive renal disease with renal failure Current Visit: Yes Status: Chronic (5) Anemia Current Visit: Yes Status: Acute (6) ESRD on hemodialysis Current Visit: No Status: Chronic - Time Spent with Patient Total time spent is greater than 50% in coordination of care (as documented) at patient's floor/unit and/or counseling patient: 25 - 35 minutes Plan of Care Discussed with: patient Internal Medicine: Result - Labs CBC & Chem 7: 05/03/18 04:47 05/03/18 04:47 Labs: Short CBC 05/03/18 Range/Units 04:47 WBC 13.9 H (4.3-11.1) K/mcL Hgb 7.5 L (12.9-16.9) g/dL Hct 24.3 L (37.5-50.1) % Plt Count 119 L (140-400) K/mcL Neutrophils # 12.0 H (1.6-8.9) K/mcL BMP 05/03/18 04:47 Sodium 135 L Potassium 3.1 L Chloride 99 Carbon Dioxide 28 BUN 30 H Creatinine 3.79 H Glucose 152 H Calcium 8.5 L Consult Discharge Plan - Plan Referrals: Shakira Diaz, ELECTRIC SERVICEMAN [Primary Care Provider] - (3) Diabetes Qualifiers: Diabetes mellitus type: type 2 Diabetes mellitus usp insulin use: with usp use Diabetes mellitus complication status: with kidney complications Chronic kidney disease stage: on chronic dialysis (5) Anemia Qualifiers: Anemia type: due to chronic kidney disease Chronic kidney disease stage: on chronic dialysis Qualified Code(s): N18.6 - End stage renal disease; D63.1 - Anemia in chronic kidney disease; Z99.2 - Dependence on renal dialysis
[2018-05-03] MEDS: rOPINIRole 1 MG, rOPINIRole 3 MG PO SCH (20:50)
[2018-05-03] MEDS: risperiDONE 1 MG TABLET PO SCH (20:50)
[2018-05-04] MEDS: *HR* OxyCODONE Immed Rel 5 MG TABLET PO PRN ×2 (04:08→14:49)
[2018-05-04 04:20] LABS: Calcium 8.5 mg/dL (8.6-10.3); Potassium 3.7 mEq/L (3.5-5.1)
[2018-05-04] MEDS: Levothyroxine 25 MCG TABLET PO SCH (05:27)
[2018-05-04] MEDS: *HR* Heparin 5,000 UNIT/ML VIAL SQ SCH ×3 (05:27→22:42)
[2018-05-04] MEDS: Furosemide 40 MG TABLET PO SCH ×2 (08:32→17:31)
[2018-05-04] MEDS: risperiDONE 0.25 MG TABLET PO SCH (08:32)
[2018-05-04] MEDS: BuPROPion SR (12 HR) 150 MG TABLET PO SCH ×2 (08:32→22:41)
[2018-05-04] MEDS: Isosorbide MONOnitrate (24 HR) 30 MG TAB.ER.24H PO SCH (08:33)
[2018-05-04] MEDS: Lisinopril 20 MG TABLET PO SCH (08:33)
[2018-05-04] MEDS: Aspirin Enteric Coated 81 MG Tablet PO SCH (08:33)
[2018-05-04] MEDS: Insulin LISPRO 300 UNITS/3 ML VIAL SQ SCH ×4 (08:33→23:41)
[2018-05-04] MEDS ORDERED: *HR* Heparin 5,000 UNIT/ML VIAL ONE (09:12)
--- NOTE | 2018-05-04 09:22 | Nephrology Progress Note ---
Date of Encounter: 05/04/18 Time of Encounter: 09:20 - Assessment and Plan (1) ESRD (end stage renal disease) Current Visit: Yes Status: Chronic Current regimen is TTS at [facility]. HD in progress today. Avoid nephrotoxins. Renal diet. Strict I/O. (2) Anemia Current Visit: Yes Status: Acute Goal hgb is 10-11. No new CBC ordered for today. Qualifiers: Anemia type: due to chronic kidney disease Chronic kidney disease stage: on chronic dialysis Qualified Code(s): N18.6 - End stage renal disease; D63.1 - Anemia in chronic kidney disease; Z99.2 - Dependence on renal dialysis (3) Hypokalemia Current Visit: Yes Status: Acute K is 3.7 today, corrected. (4) Wound of sacral region Current Visit: Yes Status: Acute Wound care consulted, appreciate recommendations. Qualifiers: Encounter type: initial encounter Qualified Code(s): S31.000A - Unspecified open wound of lower back and pelvis without penetration into retroperitoneum, initial encounter (5) Physical deconditioning Current Visit: Yes Status: Acute PT/OT ordered. Subjective Principal diagnosis: shortness of breath Interval history: Pt seen and examined during HD. Denies CP/SOB/nausea/vomiting/diarrhea. Objective - Vital Signs Vital signs: Vital Signs Temp Pulse Resp BP Pulse Ox 05/04/18 07:37 98.0 F 95 17 142/93 97 05/04/18 02:48 99.1 F 92 20 136/88 99 05/03/18 23:17 98.4 F 79 16 126/67 93 05/03/18 16:24 97.6 F 89 15 152/99 97 05/03/18 14:24 159/97 05/03/18 13:05 97.0 F L 17 159/97 05/03/18 12:45 135/88 05/03/18 12:30 122/94 05/03/18 12:15 133/83 05/03/18 12:00 133/83 05/03/18 11:45 139/87 05/03/18 11:30 130/83 05/03/18 11:15 134/89 05/03/18 11:00 119/76 05/03/18 10:45 131/88 05/03/18 10:30 115/68 05/03/18 10:15 113/78 05/03/18 10:00 127/82 05/03/18 09:45 131/77 05/03/18 09:30 133/78 Intake and Output 05/03/18 05/04/18 05/04/18 23:59 07:59 15:59 Other: Blood Glucose* 235 183 - General Appearance General appearance: Present: well-developed, well-nourished EENT: Present: ATNC, hearing intact, vision intact Neck: Present: supple Respiratory: Present: clear Cardiology: Present: edema (+2 pitting edema noted to RLE. ), normal S1, normal S2 Dialysis Vascular Access: Arteriovenous Fistula thrill: Yes bruit: Yes Gastrointestinal: Present: normoactive bowel sounds, no tenderness, no guarding Integumentary: Present: no rash, warm and dry Neurologic: Present: alert and oriented x3 Psychiatric: Present: mood/affect appropriate, cooperative - Lab 05/03/18 04:47 05/04/18 03:43 Most recent lab results Calcium 8.5 mg/dL (8.6-10.3) L 05/04/18 03:43 Phosphorus 3.4 mg/dL (2.7-4.5) 05/03/18 04:47 Magnesium 2.0 mg/dL (1.6-2.6) 05/02/18 05:11 Consult Discharge Plan - Plan Referrals: Shakira Diaz CNP [Primary Care Provider] -
[2018-05-04] MEDS: *HR* HYDROcodone/Acet 5/325 mg TABLET PO PRN ×2 (10:53→22:43)
--- NOTE | 2018-05-04 22:30 | Internal Med Progress Note ---
Hospitalist Progress Note - Encounter Date of Encounter: 05/04/18 Time of Encounter: 19:00 - Subjective Interval History: SUBJECTIVE: He seems to be doing better. He is not using supplemental oxygen anymore. His resting dyspnea subsided. Denies coughing and wheezing. His low back pain is not bothering him, as long as he can reposition himself frequently. Denies abdominal pain, nausea and vomiting. He basically does not make any urine at all. OBJECTIVE: Skin: Free of rash and discoloration. I did examine the skin of sacral area. There is a small area of pink color skin representing a recently healed ulcer. That area is intact. ENMT: Oral/pharyngeal mucosa is normal in appearance. Eyes: Sclera is white. There is no discharge from eyes. Respiratory: Normal breath sounds; no crackles or wheezes. CV: Heart is regular; no gallop or murmur. GI: Abdomen is soft and not tender. There is no palpable mass or visceromegaly. Neuro: There is no focal deficits. ASSESSMENT AND PLAN: Fluid overload secondary to end-stage renal disease. It is managed by nephrology. Pulmonary congestion/acute hypoxic respiratory failure subsided. The patient has underlying systolic and diastolic heart failure. He has severe three-vessel diseasese. See his last cardiac catheterization from June 2017. His chest x-ray from today shows increased in size right-sided effusion and associated consolidation. Type 2 diabetes mellitus/hypertension with end-stage renal disease. He is on diabetic diet and when necessary Humalog. He is on Coreg. Anemia from chronic kidney disease. His last hemoglobin was 7.5, when checked yesterday. The patient might benefit from Procrit. Leukocytosis. It was 13.9 thousand yesterday. Subsiding. Hypokalemia. Mild. Should be corrected with hemodialyses. Disposition: Awaiting ECF. The patient gets sublingual oxycodone before each hemodialysis. This medication allows him to get a few hours of hemodialysis (controls his chronic low back pain). His sacral area decub has completely healed. - Exam Vitals: Temp Pulse Resp BP Pulse Ox 97.7 F 93 17 128/92 100 05/04/18 20:37 05/04/18 20:37 05/04/18 20:37 05/04/18 20:37 05/04/18 20:37 Exam: xx - Assessment and Plan (1) Other fluid overload Current Visit: Yes Status: Acute (2) Acute respiratory failure with hypoxia Current Visit: Yes Status: Acute (3) Diabetes Current Visit: Yes Status: Acute (4) Hypertensive renal disease with renal failure Current Visit: Yes Status: Chronic (5) Anemia Current Visit: Yes Status: Acute (6) ESRD on hemodialysis Current Visit: No Status: Chronic - Time Spent with Patient Total time spent is greater than 50% in coordination of care (as documented) at patient's floor/unit and/or counseling patient: 25 - 35 minutes Plan of Care Discussed with: patient Internal Medicine: Result - Labs CBC & Chem 7: 05/03/18 04:47 05/04/18 03:43 Labs: BMP 05/04/18 03:43 Sodium 137 Potassium 3.7 Chloride 99 Carbon Dioxide 27 BUN 24 H Creatinine 2.99 H Glucose 164 H Calcium 8.5 L - Impressions Impressions Chest X-Ray 05/04/18 08:00 IMPRESSION: Increased right-sided effusion and associated consolidation. Pulmonary edema has slightly improved. D/ / Ney Yancey MD / Ney Yancey MD Interpreting Provider: Ney Yancey MD Consult Discharge Plan - Plan Referrals: Shakira Diaz, REHAB SPEC [Primary Care Provider] - (Patient is from [place]) (3) Diabetes Qualifiers: Diabetes mellitus type: type 2 Diabetes mellitus custodial insulin use: with marine oil terminal superintendent use Diabetes mellitus complication status: with kidney complications Chronic kidney disease stage: on chronic dialysis (5) Anemia Qualifiers: Anemia type: due to chronic kidney disease Chronic kidney disease stage: on chronic dialysis Qualified Code(s): N18.6 - End stage renal disease; D63.1 - Anemia in chronic kidney disease; Z99.2 - Dependence on renal dialysis
[2018-05-04] MEDS: rOPINIRole 1 MG, rOPINIRole 3 MG PO SCH (22:41)
[2018-05-04] MEDS: risperiDONE 1 MG TABLET PO SCH (22:44)
[2018-05-05 05:43] LABS: Basophils % 0.1 %; Eosinophils % 0.2 %; Hemoglobin 7.5 g/dL (12.9-16.9); Immature Granulocytes % 0.9 % (0-4); Lymphocytes # 0.7 K/mcL (0.6-4.6); Lymphocytes % 5.5 %; Mean Corpuscular Hemoglobin 30.6 pg (28.0-33.3); Mean Platelet Volume 10.5 fL (9.4-12.4); Monocytes # 1.2 K/mcL (0.0-1.3); Monocytes % 9.1 %; Neutrophils # 10.8 K/mcL (1.6-8.9); Platelet Count 110 K/mcL (140-400); Red Blood Count 2.45 M/mcL (4.19-5.50); Red Cell Distribution Width 15.9 % (11.5-14.5); Segmented Neutrophils % 84.2 %
[2018-05-05 05:58] LABS: Calcium 8.4 mg/dL (8.6-10.3); Potassium 3.5 mEq/L (3.5-5.1)
[2018-05-05] MEDS: Levothyroxine 25 MCG TABLET PO SCH (06:20)
[2018-05-05] MEDS: *HR* Heparin 5,000 UNIT/ML VIAL SQ SCH ×2 (06:21→15:47)
[2018-05-05] MEDS: risperiDONE 0.25 MG TABLET PO SCH (08:46)
[2018-05-05] MEDS: *HR* OxyCODONE Immed Rel 5 MG TABLET PO PRN (08:46)
[2018-05-05] MEDS: Aspirin Enteric Coated 81 MG Tablet PO SCH (08:46)
[2018-05-05] MEDS: Isosorbide MONOnitrate (24 HR) 30 MG TAB.ER.24H PO SCH (08:46)
[2018-05-05] MEDS: Furosemide 40 MG TABLET PO SCH ×2 (08:47→18:18)
[2018-05-05] MEDS: BuPROPion SR (12 HR) 150 MG TABLET PO SCH (08:47)
[2018-05-05] MEDS: Lisinopril 20 MG TABLET PO SCH (08:49)
[2018-05-05] MEDS: Insulin LISPRO 300 UNITS/3 ML VIAL SQ SCH ×3 (08:50→18:18)
[2018-05-05 11:44] VITALS: BP 107/71
--- NOTE | 2018-05-05 16:22 | Discharge Summary ---
Orders not resulted at time of discharge: Pending orders 05/02/18 04:00 Urinalysis reflex Microscopic [URIN] [place] 39905/02/18 05:07 Culture,[place] [address]/06/18 04:00 BMP [Basic Metabolic Panel] [place] 04005/07/18 04:00 BMP [Basic Metabolic Panel] AM 04005/08/18 04:00 BMP [Basic Metabolic Panel] AM 040 Date of Encounter: 05/05/18 Time of Encounter: 16:20 - Discharge Diagnosis (1) Other fluid overload Priority: Primary Status: Acute (2) Acute respiratory failure with hypoxia Priority: Primary Status: Resolved (3) Diabetes Priority: Secondary Status: Chronic Qualifiers: Diabetes mellitus type: type 2 Diabetes mellitus longterm insulin use: with contract accountant use Diabetes mellitus complication status: with kidney complications Chronic kidney disease stage: on chronic dialysis Qualified Code(s): E11.22 - Type 2 diabetes mellitus with diabetic chronic kidney disease ; N18.6 - End stage renal disease; 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 We admitted him with a difficulty breathing; found him to be fluid overloaded. Nephrology was consulted. The patient got a series of hemodialysis. He has underlying past severe coronary artery disease (not a candidate for any interventions). He has had mild systolic heart failure with ejection fraction of 45 and 45%. 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 He has recently healed decubitus wound in the sacral area. Continues to have chronic low back pain interfering with his hemodialysis. This is why he would be getting sublingual oxycodone every time when getting hemodialysis. CONDITION AT DISCHARGE: He feels pretty good. Denies chest pain and difficulty breathing. He has good appetite. Denies abdominal pain, nausea and vomiting. Skin: Free of rash and discoloration. Respiratory: Normal breath sounds with no crackles and wheezes bilaterally. CV: Heart is regular with no gallop or murmur. GI: Abdomen is flat and soft with no palpable mass or visceromegaly. Neuro exam: There is no focal deficits. Normal speech, swallowing and gait. SEE DISCHARGE ORDERS/MEDICATIONS.. Discharge discussed with: patient, nurse - Time Spent with Patient Total time spent providing and/or coordinating discharge services: Greater than 30 minutes (45 minutes..) - Discharge Medications Prescriptions: HYDROcodone/Acet 5/325 mg [[place] 5-325 mg] 1 tab PO BID PRN 5 Days #10 tablet PRN Reason: Pain OxyCODONE Immed Rel [Roxicodone 10 MG] 5 mg PO 3XW PRN 7 Days #3 tablet PRN Reason: dialysis pain Home Medications: Aspirin [Lo-Dose Aspirin EC] 81 mg PO DAILY 03/26/18 [History] Calcitriol 0.5 mcg PO DAILY 03/26/18 [History] Carvedilol 12.5 mg PO BID 03/26/18 [History] Clopidogrel [Plavix] 75 mg PO DAILY 03/26/18 [History] Ferric Citrate [Auryxia] 420 mg PO TID MDD 8 tablets 03/26/18 [History] Furosemide [Lasix] 40 mg PO BID 03/26/18 [History] Insulin LISPRO [HumaLOG] 5 - 10 unit SQ TIDWM 03/26/18 [History] Isosorbide MONOnitrate (24 HR) [Imdur] 30 mg PO DAILY 03/26/18 [History] L.acidoph,Paracasei, B.lactis [Probiotic] 1 cap PO DAILY 03/26/18 [History] Levothyroxine [Synthroid] 25 mcg PO DAILY 03/26/18 [History] Lisinopril [Zestril] 20 mg PO DAILY 03/26/18 [History] Ropinirole HCl [Requip] 4 mg PO HS 03/26/18 [History] Vitamin B Complex [B Complex] 1 each PO DAILY 03/26/18 [History] buPROPion HCl [Zyban] 150 mg PO BID 03/26/18 [History] risperiDONE [RisperDAL] 0.5 mg PO DAILY 30 Days #30 tablet 04/02/18 [Rx] risperiDONE [RisperDAL] 1 mg PO HS 30 Days #30 tablet 04/02/18 [Rx] Atorvastatin Calcium [Lipitor] 80 mg PO HS 05/02/18 [History] Sucroferric Oxyhydroxide [Velphoro] 500 mg PO TID 05/02/18 [History] Darbepoetin [Aranesp] 40 mcg SQ QWEEK syringe 05/05/18 [Rx] Ferrous Sulfate 325 mg PO BIDWM tablet 05/05/18 [Rx] HYDROcodone/Acet 5/325 mg [[place] 5-325 mg] 1 tab PO BID PRN 5 Days #10 tablet [Rx] OxyCODONE Immed Rel [Roxicodone 10 MG] 5 mg PO 3XW PRN 7 Days #3 tablet [Rx] Allergies/Adverse Reactions: 3 Allergy/AdvReac Type Severity Reaction Status Date / Time No Known Allergies Allergy Verified 03/26/18 11:14 Date of admission: 05/01/18 22:52 Primary care physician: Shakira Diaz CNP Consults: 05/02/18 00:11 Consult to Pastoral Services [CONS] Routine Comment: 05/02/18 01:34 Consult to Physician [CONS] Routine Consulting Provider: Jaylan Rosales Reason for Consult: ESRD, TTS HD, incomplete HD on tuesday. Fluid Overload Time Notified: 06:45 Call Completed: Yes 05/02/18 06:30 Consult to Dialysis [CONS] ONCE 05/02/18 09:46 Consult to Technical Stenographer [CONS] Routine Reason for SW Consult: Unsure if patient could have home health or any assistance. He states he has trouble getting around his house. Thanks 05/02/18 15:16 Consult to Wound Care [CONS] Routine Reason for Consult: pressure injury to coccyx Call Completed: No 05/03/18 06:45 Consult to Dialysis [CONS] ONCE 05/03/18 09:18 Consult to Occupational Therapy [CONS] Routine Comment: Evaluate, develop and implement POC Reason for Consult: treat and eval Does patient have active BEDREST order?: No Is patient medically & hemodynamically stable?: Yes Patient assessed for mobility or mobilized this visit?: No Consult to Physical Therapy [CONS] Routine Comment: Evaluate, develop and implement POC Reason for Consult: treat and eval Does patient have active BEDREST order?: No Is patient medically & hemodynamically stable?: Yes Patient assessed for mobility or mobilized this visit?: No 05/04/18 07:30 Consult to Dialysis [CONS] ONCE Discharging clinician: Ministerio Tatum Anticipated date of discharge: 05/05/18 - Constitutional Vitals: Temp Pulse Resp BP Pulse Ox 97.6 F 85 19 107/71 99 05/05/18 11:43 05/05/18 11:43 05/05/18 11:43 05/05/18 11:43 05/05/18 11:43 General appearance: Present: A&O X 3, no acute distress, answers questions appropriately Exam: xx - Patient Status Disposition: Transfer SNF Condition: Fair Functional capacity at discharge: wheelchair bound Overall status at discharge: patient is back to baseline - Discharge Instructions Follow Up With: Shakira Diaz CUFF SETTER LOCKSTITCH [Primary Care Provider] - (Patient is from [place]) Additional Instructions: HD ON TUE/TUE/TUE; STARTING TOMORROW.. - Diet and Activity Activity: resume usual activities as tolerated (WHEEL-CHAIR/BED--BOUND..) Diet: diabetic diet - VTE Deep Vein Thrombosis/Pulmonary Embolism Present on Admission: No
--- NOTE | 2018-05-05 17:23 | Physician Discharge Referral ---
ExtendedCare Referral Info Transfer To: ECF Provider in Charge: Narendra Tatum Provider in Charge after Transfer: Other (an ECF physician) - Diagnosis (1) Other fluid overload Priority: Primary Status: Acute (2) Acute respiratory failure with hypoxia Priority: Primary Status: Resolved (3) Diabetes Priority: Secondary Status: Chronic (4) Hypertensive renal disease with renal failure Priority: Secondary Status: Chronic (5) Anemia Priority: Secondary Status: Chronic (6) ESRD on hemodialysis Priority: Secondary Status: Chronic - Transfer Medications Prescriptions: HYDROcodone/Acet 5/325 mg [[place] 5-325 mg] 1 tab PO BID PRN 5 Days #10 tablet PRN Reason: Pain OxyCODONE Immed Rel [Roxicodone 10 MG] 5 mg PO 3XW PRN 7 Days #3 tablet PRN Reason: dialysis pain Home Medications: Aspirin [Lo-Dose Aspirin EC] 81 mg PO DAILY 03/26/18 [History] Calcitriol 0.5 mcg PO DAILY 03/26/18 [History] Carvedilol 12.5 mg PO BID 03/26/18 [History] Clopidogrel [Plavix] 75 mg PO DAILY 03/26/18 [History] Ferric Citrate [Auryxia] 420 mg PO TID MDD 8 tablets 03/26/18 [History] Furosemide [Lasix] 40 mg PO BID 03/26/18 [History] Insulin LISPRO [HumaLOG] 5 - 10 unit SQ TIDWM 03/26/18 [History] Isosorbide MONOnitrate (24 HR) [Imdur] 30 mg PO DAILY 03/26/18 [History] L.acidoph,Paracasei, B.lactis [Probiotic] 1 cap PO DAILY 03/26/18 [History] Levothyroxine [Synthroid] 25 mcg PO DAILY 03/26/18 [History] Lisinopril [Zestril] 20 mg PO DAILY 03/26/18 [History] Ropinirole HCl [Requip] 4 mg PO HS 03/26/18 [History] Vitamin B Complex [B Complex] 1 each PO DAILY 03/26/18 [History] buPROPion HCl [Zyban] 150 mg PO BID 03/26/18 [History] risperiDONE [RisperDAL] 0.5 mg PO DAILY 30 Days #30 tablet 04/02/18 [Rx] risperiDONE [RisperDAL] 1 mg PO HS 30 Days #30 tablet 04/02/18 [Rx] Atorvastatin Calcium [Lipitor] 80 mg PO HS 05/02/18 [History] Sucroferric Oxyhydroxide [Velphoro] 500 mg PO TID 05/02/18 [History] Darbepoetin [Aranesp] 40 mcg SQ QWEEK syringe 05/05/18 [Rx] Ferrous Sulfate 325 mg PO BIDWM tablet 05/05/18 [Rx] HYDROcodone/Acet 5/325 mg [[place] 5-325 mg] 1 tab PO BID PRN 5 Days #10 tablet [Rx] OxyCODONE Immed Rel [Roxicodone 10 MG] 5 mg PO 3XW PRN 7 Days #3 tablet [Rx] Allergies/Adverse Reactions: 3 Allergy/AdvReac Type Severity Reaction Status Date / Time No Known Allergies Allergy Verified 03/26/18 11:14 - Respiratory Orders None Smoking Cessation: Smoking cessation has been advised. For more information, call the [place] Tobacco Quit Line at 0-709-WOWZ-NOW. - Mobility Orders Bedrest (OK for wheel-chair..) - Diet Orders No Concentrated Sweets (FLUID RESTRICTION OF 1800 ML PER DAY) CERTIFICATION: I certify that the transfer of the above named patient to an Extended Care Facility is necessary for the continuing treatment of the diagnosis listed. The above information is true and accurate reflection of patient's current condition. Confidential - Redisclosure prohibited without a patient's written consent.
[2018-05-05] MEDS: *HR* HYDROcodone/Acet 5/325 mg TABLET PO PRN (18:18)
== END 2018-05-05 19:18 ==
LOC: EMEROOARM 18:32 → 2ANU 18:32 → SUATTDRO 22:52 → 2ANU 23:25
PROVIDERS: ADMIT Family Medicine; ATTEND Internal Medicine